=== PATIENT | male | born 1960 | race Caucasian/White ===

== ENCOUNTER → 2017-08-07 | Outpatient (CLI) | payer MEDICARE ==
--- NOTE | 2017-08-07 11:30 | RADIOLOGY REPORT (SQ) ---
EXAM DESCRIPTION: U/S ABDOMEN COMPLETE W/O DOP COMPLETED DATE/TIME: 08/07/2017 11:12 am REASON FOR STUDY: CIRRHOSIS OF LIVER WITH ASCITES (K70.31) K74.69 OTHER CIRRHOSIS OF LIVER K70.31 ALCOHOLIC CIRRHOSIS OF LIVER WITH ASCITES COMPARISON: 03/14/2015 TECHNIQUE: Dynamic and static grayscale images acquired of the abdomen and recorded on PACS. Additio nal selected color Doppler and spectral images recorded. LIMITATIONS: Study limited due to acoustical interference from fat or from air in the bowel. FINDINGS: PANCREAS: Obscured. LIVER: Sub capsular nodularity. Diffuse heterogeneous echotexture. LIVER VASCULATURE: Normal directional flow of the main portal vein and hepatic veins. GALLBLADDER: No stones. Wall thickening secondary to ascites. No pericholecystic fluid. ULTRASOUND-DETECTED GRAMAJO'S SIGN: Negative. INTRAHEPATIC DUCTS AND COMMON DUCT: CBD and intrahepatic ducts normal caliber. No filling defects. INFERIOR VENA CAVA: Normal flow. AORTA: No aneurysm. RIGHT KIDNEY: Normal size. Normal echogenicity. No solid or suspicious masses. No hydronephros is. No calcifications. LEFT KIDNEY: Normal size. Normal echogenicity. No solid or suspicious masses. Mild hydronephro sis. No calcifications. SPLEEN:13.0 cm. No solid masses. PERITONEAL AND PLEURAL SPACES: Moderate ascites. OTHER: No other significant finding. IMPRESSION: Cirrhosis. Moderate ascites. Mild left hydronephrosis without visualized urinary tract stones. TECHNICAL DOCUMENTATION: JOB ID: [id number] All Rights Reserved Reading location - IP/workstation name: [email or web address]
[2017-08-07 11:41] LABS: INTERNATIONAL RATION (INR) 1.93
[2017-08-07 11:43] LABS: ABSOLUTE BASOPHILS # (AUTO) 0.1 10^3/uL (0.0-0.2); ABSOLUTE LYMPHOCYTES (AUTO) 1.4 10^3/uL (0.5-4.7); ABSOLUTE MONOCYTES (AUTO) 0.6 10^3/uL (0.1-1.4); ABSOLUTE NEUT (AUTO) 3.6 10^3/uL (1.7-8.2); BASOPHILS % (AUTO) 1.2 % (0-2); EOSINOPHILS % (AUTO) 14.6 % (0-6); HEMATOCRIT 23.3 % (37.9-51.0); LYMPHOCYTES % (AUTO) 21.1 % (13-45); MEAN CORPUSCULAR HEMOGLOBIN 29.2 pg (27.0-33.4); MEAN CORPUSCULAR HGB CONC 32.8 g/dL (32.0-36.0); MEAN CORPUSCULAR VOLUME 89 fl (80-97); MONOCYTES % (AUTO) 8.8 % (3-13); PLATELET COUNT 100 10^3/uL (150-450); RED BLOOD COUNT 2.62 10^6/uL (4.35-5.55); RED CELL DISTRIBUTION WIDTH 19.5 % (11.5-14.0); SEGMENTED NEUTROPHILS % (AUTO) 54.3 % (42-78); TOTAL CELLS COUNTED % (AUTO) 100 %; WHITE BLOOD COUNT 6.5 10^3/uL (4.0-10.5)
[2017-08-07 11:53] LABS: HEMOGLOBIN 7.7 g/dL (13.5-17.0)
[2017-08-07 12:05] LABS: ALANINE AMINOTRANSFERASE 27 U/L (21-72); ALBUMIN 2.4 g/dL (3.5-5.0); ALKALINE PHOSPHATASE 158 U/L (38-126); ANION GAP 8 (5-19); ASPARTATE AMINO TRANSFERASE 70 U/L (17-59); BILIRUBIN,DIRECT 2.1 mg/dL (0.0-0.4); BILIRUBIN,TOTAL 3.5 mg/dL (0.2-1.3); BLOOD UREA NITROGEN 5 mg/dL (7-20); CALCIUM 7.8 mg/dL (8.4-10.2); CARBON DIOXIDE 25 mmol/L (22-30); CHLORIDE 103 mmol/L (98-107); GLUCOSE 91 mg/dL (75-110); POTASSIUM 3.7 mmol/L (3.6-5.0); SODIUM 135.7 mmol/L (137-145); TOTAL PROTEIN 7.1 g/dL (6.3-8.2)
[2017-08-09 15:39] LABS: HEPATITIS B CORE AB IGM Negative (Negative); HEPATITIS B CORE AB TOT Negative (Negative); HEPATITIS BE AB Negative (Negative); HEPATITIS BE ANTIGEN Negative (Negative); HEPATITIS C VIRUS AB <0.1 s/co ratio (0.0-0.9); HEPATITS B SURFACE ANTIGEN Negative (Negative)
[2017-08-11 09:01] LABS: HEPATITIS B SURFACE AB QUAL Non Reactive (.)
== END ==
LOC: RAD 10:05
PROVIDERS: ATTEND Internal Medicine Gastroenterology
DX: K70.31 Alcoholic cirrhosis of liver with ascites (principal)
CPT/HCPCS: 36415; 76700; 80053; 85025; 85610; 86704; 86705; 86706; 86707; 86803; 87340; 87350

== ENCOUNTER 2017-11-25 12:25 | Emergency (ER) | payer MEDICARE, MEDICAID ==
--- NOTE | 2017-11-25 13:00 | ER Document Report ---
ED Medical Screen (RME) - General Chief Complaint: Abnormal Lab Results Stated Complaint: LEG PAIN/ABNORMAL LABS Time Seen by Provider: 11/25/17 12:59 Notes: 57-year-old male history of cirrhosis requiring blood transfusions in the past sent over by primary care doctor for evaluation of a hemoglobin of less than 4. Daughter is with patient states that he has had frequent falls. Patient denies any significant pain at this time. Patient smokes. Denies alcohol use at this time. I have greeted and performed a rapid initial assessment of this patient. A comprehensive ED assessment and evaluation of the patient, analysis of test results and completion of the medical decision making process will be conducted by additional ED providers. TRAVEL OUTSIDE OF THE [place] IN LAST 30 DAYS: No - Related Data Allergies/Adverse Reactions: No Known Allergies Allergy (Verified 11/25/17 12:26) Past Medical History - Past Medical History Cardiac Medical History: Reports: Hx Congestive Heart Failure, Hx Hypercholesterolemia, Hx Hypertension GI Medical History: Reports: Hx Cirrhosis Psychiatric Medical History: Reports: Hx Depression - Immunizations Immunizations up to date: Yes Hx Diphtheria, Pertussis, Tetanus Vaccination: Yes Physical Exam - Vital signs Vitals: Temp Pulse Resp BP Pulse Ox 98.4 F 70 16 91/46 L 100 11/25/17 12:35 11/25/17 12:35 11/25/17 12:35 11/25/17 12:35 11/25/17 12:35 Course - Vital Signs Vital signs: Temp Pulse Resp BP Pulse Ox 98.4 F 70 16 91/46 L 100 11/25/17 12:35 11/25/17 12:35 11/25/17 12:35 11/25/17 12:35 11/25/17 12:35
[2017-11-25] MEDS ORDERED: NORMAL SALINE 250 ML IV PRN ×3 (13:07→23:59)
[2017-11-25 14:05] LABS: INTERNATIONAL RATION (INR) 1.66; PARTIAL THROMBOPLASTIN TIME 44.5 SEC (23.5-35.8); PROTHROMBIN TIME 20.4 SEC (11.4-15.4)
[2017-11-25 14:22] LABS: ALANINE AMINOTRANSFERASE 26 U/L (21-72); ALBUMIN 2.5 g/dL (3.5-5.0); ALKALINE PHOSPHATASE 119 U/L (38-126); ANION GAP 12 (5-19); ASPARTATE AMINO TRANSFERASE 52 U/L (17-59); BILIRUBIN,DIRECT 2.2 mg/dL (0.0-0.4); BILIRUBIN,TOTAL 3.9 mg/dL (0.2-1.3); BLOOD UREA NITROGEN 6 mg/dL (7-20); CALCIUM 7.6 mg/dL (8.4-10.2); CARBON DIOXIDE 23 mmol/L (22-30); CHLORIDE 98 mmol/L (98-107); GLUCOSE 99 mg/dL (75-110); SODIUM 132.6 mmol/L (137-145); TOTAL PROTEIN 7.3 g/dL (6.3-8.2)
[2017-11-25 14:28] LABS: POTASSIUM 2.9 mmol/L (3.6-5.0)
[2017-11-25 14:40] LABS: ABSOLUTE BASOPHILS # (AUTO) 0.1 10^3/uL (0.0-0.2); ABSOLUTE EOSINOPHILS # (AUTO) 0.3 10^3/uL (0.0-0.6); ABSOLUTE LYMPHOCYTES (AUTO) 0.8 10^3/uL (0.5-4.7); ABSOLUTE MONOCYTES (AUTO) 0.5 10^3/uL (0.1-1.4); ABSOLUTE NEUT (AUTO) 1.9 10^3/uL (1.7-8.2); EOSINOPHILS % (AUTO) 9.1 % (0-6); LYMPHOCYTES % (AUTO) 22.3 % (13-45); MEAN CORPUSCULAR HEMOGLOBIN 31.3 pg (27.0-33.4); MEAN CORPUSCULAR HGB CONC 33.5 g/dL (32.0-36.0); MEAN CORPUSCULAR VOLUME 94 fl (80-97); MONOCYTES % (AUTO) 13.3 % (3-13); RED CELL DISTRIBUTION WIDTH 19.7 % (11.5-14.0); SEGMENTED NEUTROPHILS % (AUTO) 53.3 % (42-78); TOTAL CELLS COUNTED % (AUTO) 100 %; WHITE BLOOD COUNT 3.6 10^3/uL (4.0-10.5)
[2017-11-25 15:13] LABS: PLATELET COUNT 96 10^3/uL (150-450)
[2017-11-25 15:16] LABS: HEMOGLOBIN 4.1 g/dL (13.5-17.0)
[2017-11-25 15:20] LABS: ANISOCYTOSIS 2+; OVALOCYTES SLIGHT; PLATELET COMMENT DECREASED; POIKILOCYTOSIS SLIGHT; POLYCHROMASIA SLIGHT; TEAR DROP CELLS SLIGHT
[2017-11-25 15:23] LABS: HEMATOCRIT 12.2 % (37.9-51.0)
[2017-11-25] MEDS ORDERED: NICOTINE 14 MG/24 HR PATCH.TD24 TD ONE (15:34)
[2017-11-25] MEDS ORDERED: FUROSEMIDE INJ/PF 40 MG/4 ML SDV IV ONE ×2 (15:34→20:00)
--- NOTE | 2017-11-25 15:34 | ER Document Report ---
ED General - General Chief Complaint: Abnormal Lab Results Stated Complaint: LEG PAIN/ABNORMAL LABS Time Seen by Provider: 11/25/17 12:59 TRAVEL OUTSIDE OF THE [place] IN LAST 30 DAYS: No - HPI Patient complains to provider of: Low H&H Notes: Patient here for evaluation of low hemoglobin hematocrit patient has a history of alcohol liver cirrhosis along with CHF. Patient states that on he went to his GI physician is Pat BRAXTON Dr. EK laboratory results performed was called with these results today stating need to get to the ER immediately because his hemoglobin is 3.6. Patient otherwise denies any other symptoms denies any fever chills nausea vomiting diarrhea dizziness weakness palpitations shortness of breath. Patient states he was having dark stools approximately 5 days prior to his visit here in ER however light brown stools for the last 4 days. Patient states he was having some significant bleeding in his mouth and swallowing blood was coming from a tooth this is since that time. Patient thinks that the dark stools from swelling and blood. Patient resting comfortably upon my evaluation. - Related Data Allergies/Adverse Reactions: Penicillins Allergy (Verified 11/25/17 20:14) Past Medical History - Social History Smoking Status: Current Every Day Smoker Family History: Arthritis, CAD, Hyperlipidemia, Hypertension, Malignancy Patient has suicidal ideation: No Patient has homicidal ideation: No - Past Medical History Cardiac Medical History: Reports: Hx Congestive Heart Failure, Hx Hypercholesterolemia, Hx Hypertension Renal/ Medical History: Denies: Hx Peritoneal Dialysis GI Medical History: Reports: Hx Cirrhosis Psychiatric Medical History: Reports: Hx Depression - Immunizations Immunizations up to date: Yes Hx Diphtheria, Pertussis, Tetanus Vaccination: Yes Review of Systems - Review of Systems Constitutional: Other - Low H&H EENT: No symptoms reported Cardiovascular: No symptoms reported Respiratory: No symptoms reported Gastrointestinal: No symptoms reported Genitourinary: No symptoms reported Male Genitourinary: No symptoms reported Musculoskeletal: No symptoms reported Skin: No symptoms reported Hematologic/Lymphatic: No symptoms reported Neurological/Psychological: No symptoms reported -: Yes All other systems reviewed and negative Physical Exam - Vital signs Vitals: Temp Pulse Resp BP Pulse Ox 98.4 F 70 16 91/46 L 100 11/25/17 12:35 11/25/17 12:35 11/25/17 12:35 11/25/17 12:35 11/25/17 12:35 Interpretation: Hypotensive - General General appearance: Appears well - The, Alert - HEENT Head: Normocephalic, Atraumatic Eyes: Normal Pupils: PERRL - Respiratory Respiratory status: No respiratory distress Chest status: Nontender Breath sounds: Normal Chest palpation: Normal - Cardiovascular Rhythm: Regular Heart sounds: Normal auscultation Murmur: No - Abdominal Inspection: Normal Distension: Distended - Ascites with positive fluid wave no tenderness umbilical hernia easily reducible Bowel sounds: Normal Tenderness: Nontender Organomegaly: No organomegaly - Rectal Stool: Heme negative - Light brown stool on examination - Back Back: Normal, Nontender - Extremities General upper extremity: Normal inspection, Nontender, Normal color, Normal ROM , Normal temperature General lower extremity: Normal inspection, Nontender, Edema - 2+ bilateral edema, Normal color, Normal ROM, Normal temperature, Normal weight bearing. No : Estefania's sign - Neurological Neuro grossly intact: Yes Cognition: Normal Orientation: AAOx4 Gabriela Coma Scale Eye Opening: Spontaneous Gabriela Coma Scale Verbal: Oriented [place] Coma Scale Motor: Obeys Commands Gabriela Coma Scale Total: 15 Speech: Normal Motor strength normal: LUE, RUE, LLE, RLE Sensory: Normal - Psychological Associated symptoms: Normal affect, Normal mood - Skin Skin Temperature: Warm Skin Moisture: Dry Skin Color: Normal Course - Re-evaluation Re-evalutation: 11/25/17 17:06 Patient laboratory studies shows a hemoglobin of 4.1 hematocrit of 12 along with a potassium of 2.9. Patient will be given potassium orally. We will start transfusing blood. Rectal examination showed light brown stool Hemoccult card was negative. Discussed for hospitalist for possible admission however due to lack of GI at our facility this time states he is uncomfortable in taking care of this patient due to the history of alcohol cirrhosis and possibility low hemoglobin due to underlying GI bleed. Patient's case was discussed with who accepts patient in transfer. Patient's blood pressure has been soft in the lower 90s lower 100s however he is asymptomatic at this time not tachycardic. 11/25/17 21:53 Discussed with the hospitalist she agrees at this time that patient cannot be admitted here to the hospital due to lack of GI specialty. Notified by the nursing staff that the patient's been dividing could be delayed 24-48 hours. The discussed with the patient about transfer to another facility however patient at this time refuses. Patient is a note 3. Patient states that he is only been to [place] and does not want to go to other hospital. We will continue to repeat laboratory studies. Patient has stated that if his blood counts increase he has not transferred within a reasonable time that he may sign out AGAINST MEDICAL ADVICE. I have advised patient the risks of making a decision. Patient states understanding. - Vital Signs Vital signs: Temp Pulse Resp BP Pulse Ox 98.1 F 64 15 85/42 L 100 11/25/17 22:35 11/25/17 22:35 11/25/17 22:35 11/25/17 22:35 11/25/17 22:35 - Laboratory Result Diagrams: 11/25/17 14:21 11/25/17 13:30 Laboratory results interpreted by me: 11/25/17 11/25/17 11/25/17 13:30 13:30 13:30 WBC RBC Hgb Hct RDW Plt Count Monocytes % Eosinophils % PT 20.4 H APTT 44.5 H Sodium 132.6 L Potassium 2.9 L* BUN 6 L Calcium 7.6 L Total Bilirubin 3.9 H Direct Bilirubin 2.2 H Ammonia 8.8 L Albumin 2.5 L Crossmatch 11/25/17 11/25/17 13:30 14:21 WBC 3.6 L RBC 1.30 L Hgb 4.1 L* Hct 12.2 L* RDW 19.7 H Plt Count 96 L Monocytes % 13.3 H Eosinophils % 9.1 H PT APTT Sodium Potassium BUN Calcium Total Bilirubin Direct Bilirubin Ammonia Albumin Crossmatch See Detail Critical Care Note - Critical Care Note Total time excluding time spent on procedures (mins): 35 Comments: Patient with a critical hemoglobin time also spent discussing with the patient about transferring him to a tertiary care facility and discussing the patient's presentation with history of care facility physician Discharge - Discharge Clinical Impression: Anemia requiring transfusions, Alcoholic cirrhosis, Thrombocytopenia, History of CHF (congestive heart failure), Possible GI bleed Condition: Good Disposition: [facility] Referrals: KELLY JOSE MD [Primary Care Provider] - Follow up as needed
[2017-11-25] MEDS ORDERED: PANTOPRAZOLE SODIUM 40 MG VIAL IV ONE ×2 (16:35→20:00)
[2017-11-25] MEDS ORDERED: POTASSIUM CHLORIDE 10 MEQ CAPSULE.ER PO ONE (17:01)
[2017-11-26] MEDS ORDERED: PHYTONADIONE INJ 10 MG/1 ML AMPULE IV ONE (01:26)
[2017-11-26] MEDS ORDERED: PHYTONADIONE 5 MG TABLET PO ONE (03:54)
[2017-11-26 04:23] LABS: ABSOLUTE BASOPHILS # (AUTO) 0.1 10^3/uL (0.0-0.2); ABSOLUTE EOSINOPHILS # (AUTO) 0.4 10^3/uL (0.0-0.6); ABSOLUTE LYMPHOCYTES (AUTO) 0.8 10^3/uL (0.5-4.7); ABSOLUTE MONOCYTES (AUTO) 0.3 10^3/uL (0.1-1.4); ABSOLUTE NEUT (AUTO) 2.6 10^3/uL (1.7-8.2); BASOPHILS % (AUTO) 1.5 % (0-2); EOSINOPHILS % (AUTO) 9.5 % (0-6); HEMATOCRIT 22.3 % (37.9-51.0); LYMPHOCYTES % (AUTO) 18.8 % (13-45); MEAN CORPUSCULAR HEMOGLOBIN 29.8 pg (27.0-33.4); MEAN CORPUSCULAR HGB CONC 34.2 g/dL (32.0-36.0); MONOCYTES % (AUTO) 8.3 % (3-13); RED BLOOD COUNT 2.56 10^6/uL (4.35-5.55); RED CELL DISTRIBUTION WIDTH 18.1 % (11.5-14.0); SEGMENTED NEUTROPHILS % (AUTO) 61.9 % (42-78); TOTAL CELLS COUNTED % (AUTO) 100 %; WHITE BLOOD COUNT 4.2 10^3/uL (4.0-10.5)
[2017-11-26 04:26] LABS: HEMOGLOBIN 7.6 g/dL (13.5-17.0); PLATELET COUNT 86 10^3/uL (150-450)
[2017-11-26 04:29] LABS: ANION GAP 9 (5-19); BLOOD UREA NITROGEN 6 mg/dL (7-20); CALCIUM 7.4 mg/dL (8.4-10.2); CARBON DIOXIDE 24 mmol/L (22-30); CHLORIDE 99 mmol/L (98-107); GLUCOSE 126 mg/dL (75-110); SODIUM 132.3 mmol/L (137-145)
[2017-11-26 04:45] LABS: POTASSIUM 2.8 mmol/L (3.6-5.0)
[2017-11-26 04:49] LABS: MEAN CORPUSCULAR VOLUME 87 fl (80-97)
[2017-11-26 05:32] VITALS: BP 86/43
[2017-11-26 13:01] LABS: PATH REVIEW PATHOLOGIST REVIEWED
== END 2017-11-26 05:30 | disposition left against medical advice (07) ==
LOC: ER 12:25
DX: D69.6 Thrombocytopenia, unspecified (principal); D64.9 Anemia, unspecified; K70.30 Alcoholic cirrhosis of liver without ascites; I50.9 Heart failure, unspecified; E78.00 Pure hypercholesterolemia, unspecified; Z88.0 Allergy status to penicillin
CPT/HCPCS: 99284; 96374; 96375; 86900; 86901; 36415; 36430; 86850; 82140; 83735; 85025; 85610; 85730; 82272; 80048; 80053; 86920; 83880; P9016; J1940; A9270 ×2; C9113; J3490; S0164

== ENCOUNTER 2018-02-28 10:21 | Emergency (ER) | payer MEDICARE, MEDICAID ==
[2018-02-28 10:56] LABS: VENOUS BLOOD BASE EXCESS -3.7 mmol/L; VENOUS BLOOD HCO3 21.4 mmol/L (20-32); VENOUS BLOOD PCO2 38.8 mmHg (35-63); VENOUS BLOOD PH 7.36 (7.30-7.42)
[2018-02-28 11:01] LABS: INTERNATIONAL RATION (INR) 2.25; PROTHROMBIN TIME 25.9 SEC (11.4-15.4)
[2018-02-28 11:09] LABS: MEAN CORPUSCULAR HEMOGLOBIN 27.8 pg (27.0-33.4); MEAN CORPUSCULAR HGB CONC 31.2 g/dL (32.0-36.0); MEAN CORPUSCULAR VOLUME 89 fl (80-97); RED BLOOD COUNT 1.63 10^6/uL (4.35-5.55); RED CELL DISTRIBUTION WIDTH 21.3 % (11.5-14.0); WHITE BLOOD COUNT 6.7 10^3/uL (4.0-10.5)
[2018-02-28 11:15] LABS: ALANINE AMINOTRANSFERASE 19 U/L (21-72); ALKALINE PHOSPHATASE 143 U/L (38-126); ANION GAP 12 (5-19); ASPARTATE AMINO TRANSFERASE 44 U/L (17-59); BILIRUBIN,DIRECT 1.6 mg/dL (0.0-0.4); BILIRUBIN,TOTAL 2.5 mg/dL (0.2-1.3); BLOOD UREA NITROGEN 6 mg/dL (7-20); CALCIUM 7.2 mg/dL (8.4-10.2); CARBON DIOXIDE 20 mmol/L (22-30); CHLORIDE 106 mmol/L (98-107); GLUCOSE 87 mg/dL (75-110); POTASSIUM 3.3 mmol/L (3.6-5.0); SODIUM 137.6 mmol/L (137-145); TOTAL PROTEIN 6.7 g/dL (6.3-8.2)
[2018-02-28 11:31] LABS: PLATELET COUNT 47 10^3/uL (150-450)
[2018-02-28 11:36] LABS: HEMOGLOBIN 4.5 g/dL (13.5-17.0)
[2018-02-28] MEDS ORDERED: NORMAL SALINE 250 ML IV PRN (11:47)
[2018-02-28 11:49] LABS: ABSOLUTE LYMPHOCYTES# (MANUAL) 0.5 10^3/uL (0.5-4.7); ABSOLUTE MONOCYTES # (MANUAL) 0.4 10^3/uL (0.1-1.4); ABSOLUTE NEUTROPHILS# (MANUAL) 4.2 10^3/uL (1.7-8.2); BAND NEUTROPHILS % (MANUAL) 1 % (3-5); BASOPHILS % (MANUAL) 1 % (0-2); EOSINOPHILS % (MANUAL) 23 % (0-6); LYMPHOCYTES % (MANUAL) 7 % (13-45); METAMYELOCYTES % (MANUAL) 1 % (0); MONOCYTES % (MANUAL) 6 % (3-13); SEGMENTED NEUTROPHILS % (MAN) 61 % (42-78); TOTAL CELLS COUNTED 100
[2018-02-28] MEDS ORDERED: POTASSIUM CHLORIDE 10 MEQ CAPSULE.ER PO ONE (11:49)
[2018-02-28] MEDS ORDERED: FUROSEMIDE INJ/PF 40 MG/4 ML SDV IV ONE (11:49)
[2018-02-28 11:50] LABS: ANISOCYTOSIS 2+; HYPOCHROMASIA 2+; POLYCHROMASIA SLIGHT
[2018-02-28 11:51] LABS: OVALOCYTES 1+; PLATELET COMMENT DECREASED; POIKILOCYTOSIS 1+; TOXIC GRANULATION SLIGHT
--- NOTE | 2018-02-28 12:00 | ER Document Report ---
ED General - General Chief Complaint: Edema Stated Complaint: ABDOMINAL/LEG SWELLING Time Seen by Provider: 02/28/18 11:13 Notes: Patient is a 58-year-old male that presents to the emergency department for chief complaint of abdominal distention, and lightheadedness. Patient states over the last several days he has had even more worsening of the patient's baseline ascites, he denies having any associated abdominal pain with it. Denies any fevers, chills, night sweats. Denies having any nausea or vomiting. He is felt more weak and lightheaded over the past few days as well, he has a history of severe anemia. According to the patient's daughter he was at the emergency department in October, and was given blood transfusions, total of 3 units, waiting for transfer, that he left AMA prior to being transferred to a tertiary facility. He states he feels similar to that time, although he notes that his abdomen seems more distended than previously, he also notes that his scrotum has become edematous as well and his legs been more swollen. He denies any worsening of the swelling in one leg over the other, denies any pain in his legs at this time. He has a chronic alcoholic and continues to drink even through yesterday. He denies any black or melanotic stools, denies any vomiting or hematemesis Past Medical History: Cirrhosis, CHF, chronic kidney disease, anemia Past Surgical History: No recent or pertinent surgeries Social History: Admits to smoking cigarettes, and daily alcohol use, denies illicit drug use. Family History: Reviewed and noncontributory for presenting illness Allergies: Reviewed, see documented allergy list. REVIEW OF SYSTEMS: Other than noted above, the 12 point review of systems was reviewed with the patient and were negative, all pertinent findings are included in the HPI. PHYSICAL EXAMINATION: Vital signs reviewed, nursing noted reviewed. GENERAL: Chronically ill-appearing male, pale to appearance, but in no acute distress HEAD: Atraumatic, normocephalic. EYES: Eyes appear normal, extraocular movements intact, sclera anicteric, conjunctiva are normal. ENT: nares patent, oropharynx clear without exudates. Moist mucous membranes. NECK: Normal range of motion, supple without lymphadenopathy LUNGS: Breath sounds clear to auscultation bilaterally and equal. No wheezes rales or rhonchi. HEART: Regular rate and rhythm without murmurs ABDOMEN: Soft, markedly distended abdomen, with fluid wave, nontender to palpate however, umbilical hernia appreciated, but reducible, no cyanosis or tenderness appreciated at the umbilicus. No rebound, guarding or rigidity. Male genital: Patient has markedly edematous scrotum, and overall anasarca EXTREMITIES: Bilateral lower extremity edema, to the proximal thighs, 3+ pitting , equal bilaterally, stasis dermatitis noted bilaterally in the lower extremities. NEUROLOGICAL: No focal neurological deficits. Moves all extremities spontaneously Motor and sensory grossly intact on exam. PSYCH: Normal mood, normal affect. SKIN: Warm, Dry, normal turgor, pallor noted TRAVEL OUTSIDE OF THE [place] IN LAST 30 DAYS: No - Related Data Allergies/Adverse Reactions: Penicillins Allergy (Verified 02/28/18 10:37) Past Medical History - Social History Smoking Status: Current Every Day Smoker Chew tobacco use (# tins/day): No Frequency of alcohol use: Heavy Drug Abuse: None Family History: Arthritis, CAD, Hyperlipidemia, Hypertension, Malignancy Patient has suicidal ideation: No Patient has homicidal ideation: No - Past Medical History Cardiac Medical History: Reports: Hx Congestive Heart Failure, Hx Hypercholesterolemia, Hx Hypertension Renal/ Medical History: Denies: Hx Peritoneal Dialysis GI Medical History: Reports: Hx Cirrhosis Psychiatric Medical History: Reports: Hx Depression - Immunizations Immunizations up to date: Yes Hx Diphtheria, Pertussis, Tetanus Vaccination: Yes Physical Exam - Vital signs Vitals: Temp 98 F 02/28/18 10:36 Course - Re-evaluation Re-evalutation: Patient seen and examined vital signs reviewed. Laboratory data and imaging were ordered as appropriate for the patient's presenting symptoms and complaint, with consideration of any critical or life threatening conditions that may be associated with their obtained history and exam as noted above. Patient was treated with 3 unit packed red blood cell blood transfusion was ordered given the patient's hemoglobin came back at 4.5. Results were reviewed when available and demonstrated severe anemia, at 4.5 hemoglobin, again patient was ordered 3 units transfusion, his platelet count was 47, which is lower than previous, his INR is 2.2, no renal impairment however, patient does have massive ascites, however the risks of obtaining ascitic fluid, or performing large volume paracentesis, vastly outweigh the benefits in this patient, given his lack of ability to coagulate, which Could cause bleeding, patient does not have abdominal tenderness, and no leukocytosis , therefore I do not think the patient has spontaneous bacterial peritonitis. He does have an elevated lactic acid, at 5.0, but I believe this is manifestation of severe anemia, resulting in global or oxygen exchange, and lack of ability to convert lactate to bicarb, in a patient with cirrhosis. No evidence of infection otherwise, and I believe his lactate will improve with blood transfusion. Patient was also given Lasix 40 mg IV, for his anasarca. The patient was re-evaluated and was stable, blood pressure is remaining stable , in the low 100s, to high 90s, will continue to monitor Evaluation was most consistent with severe anemia, massive ascites, thrombocytopenia, cirrhosis, and elevated lactic acid Results were discussed with the patient at this point after careful consideration I feel that that patient should be transferred to [facility] due to the above diagnoses, requiring gastroenterology to follow. Dr. Galvan is the accepting physician. This was discussed with the patient that it is in the best interest for their care to be transferred, the risks and benefits of transfer were discussed, including but not limited to clinical deterioration during transport, respiratory distress, and potential for traumatic injuries. Patient agreed with this plan of care. *Note is created using voice recognition software and may contain spelling, syntax or grammatical errors. Laboratory 02/28/18 02/28/18 02/28/18 10:35 10:35 10:35 WBC 6.7 RBC 1.63 L Hgb 4.5 L* Hct 14.5 L* MCV 89 MCH 27.8 MCHC 31.2 L RDW 21.3 H Plt Count 47 L Total Counted 100 Seg Neutrophils % Not Reportable Seg Neuts % (Manual) 61 Band Neutrophils % 1 L Lymphocytes % Not Reportable Lymphocytes % (Manual) 7 L Monocytes % Not Reportable Monocytes % (Manual) 6 Eosinophils % Not Reportable Eosinophils % (Manual) 23 H Basophils % Not Reportable Basophils % (Manual) 1 Metamyelocytes % 1 H Absolute Neutrophils Not Reportable Abs Neuts (Manual) 4.2 Absolute Lymphocytes Not Reportable Abs Lymphs (Manual) 0.5 Absolute Monocytes Not Reportable Abs Monocytes (Manual) 0.4 Absolute Eosinophils Not Reportable Absolute Eos (Manual) 1.5 H Absolute Basophils Not Reportable Abs Basophils (Manual) 0.1 Toxic Granulation SLIGHT Platelet Comment DECREASED Polychromasia SLIGHT Hypochromasia 2+ Poikilocytosis 1+ Anisocytosis 2+ Ovalocytes 1+ PT 25.9 H INR 2.25 VBG pH VBG pCO2 VBG HCO3 VBG Base Excess Sodium 137.6 Potassium 3.3 L Chloride 106 Carbon Dioxide 20 L Anion Gap 12 BUN 6 L Creatinine 0.86 Est GFR ( Amer) > 60 Est GFR (Non-Af Amer) > 60 Glucose 87 POC Glucose Lactic Acid Calcium 7.2 L Total Bilirubin 2.5 H Direct Bilirubin 1.6 H Neonat Total Bilirubin Not Reportable Neonat Direct Bilirubin Not Reportable Neonat Indirect Bili Not Reportable AST 44 ALT 19 L Alkaline Phosphatase 143 H Ammonia Total Protein 6.7 Albumin 2.0 L Blood Type Antibody Screen Crossmatch 02/28/18 02/28/18 02/28/18 10:35 10:35 10:35 WBC RBC Hgb Hct MCV MCH MCHC RDW Plt Count Total Counted Seg Neutrophils % Seg Neuts % (Manual) Band Neutrophils % Lymphocytes % Lymphocytes % (Manual) Monocytes % Monocytes % (Manual) Eosinophils % Eosinophils % (Manual) Basophils % Basophils % (Manual) Metamyelocytes % Absolute Neutrophils Abs Neuts (Manual) Absolute Lymphocytes Abs Lymphs (Manual) Absolute Monocytes Abs Monocytes (Manual) Absolute Eosinophils Absolute Eos (Manual) Absolute Basophils Abs Basophils (Manual) Toxic Granulation Platelet Comment Polychromasia Hypochromasia Poikilocytosis Anisocytosis Ovalocytes PT INR VBG pH 7.36 VBG pCO2 38.8 VBG HCO3 21.4 VBG Base Excess -3.7 Sodium Potassium Chloride Carbon Dioxide Anion Gap BUN Creatinine Est GFR ( Amer) Est GFR (Non-Af Amer) Glucose POC Glucose Lactic Acid 5.0 H Calcium Total Bilirubin Direct Bilirubin Neonat Total Bilirubin Neonat Direct Bilirubin Neonat Indirect Bili AST ALT Alkaline Phosphatase Ammonia 40.3 H Total Protein Albumin Blood Type Antibody Screen Crossmatch 02/28/18 02/28/18 10:53 10:55 WBC RBC Hgb Hct MCV MCH MCHC RDW Plt Count Total Counted Seg Neutrophils % Seg Neuts % (Manual) Band Neutrophils % Lymphocytes % Lymphocytes % (Manual) Monocytes % Monocytes % (Manual) Eosinophils % Eosinophils % (Manual) Basophils % Basophils % (Manual) Metamyelocytes % Absolute Neutrophils Abs Neuts (Manual) Absolute Lymphocytes Abs Lymphs (Manual) Absolute Monocytes Abs Monocytes (Manual) Absolute Eosinophils Absolute Eos (Manual) Absolute Basophils Abs Basophils (Manual) Toxic Granulation Platelet Comment Polychromasia Hypochromasia Poikilocytosis Anisocytosis Ovalocytes PT INR VBG pH VBG pCO2 VBG HCO3 VBG Base Excess Sodium Potassium Chloride Carbon Dioxide Anion Gap BUN Creatinine Est GFR ( Amer) Est GFR (Non-Af Amer) Glucose POC Glucose 88 Lactic Acid Calcium Total Bilirubin Direct Bilirubin Neonat Total Bilirubin Neonat Direct Bilirubin Neonat Indirect Bili AST ALT Alkaline Phosphatase Ammonia Total Protein Albumin Blood Type A NEGATIVE Antibody Screen NEGATIVE Crossmatch See Detail - Vital Signs Vital signs: Temp Pulse Resp BP Pulse Ox 97.8 F 71 13 97/40 L 100 02/28/18 14:20 02/28/18 14:31 02/28/18 14:31 02/28/18 14:30 02/28/18 14:31 - Laboratory Result Diagrams: 02/28/18 10:35 02/28/18 10:35 Laboratory results interpreted by me: 02/28/18 02/28/18 02/28/18 10:35 10:35 10:35 RBC 1.63 L Hgb 4.5 L* Hct 14.5 L* MCHC 31.2 L RDW 21.3 H Plt Count 47 L Band Neutrophils % 1 L Lymphocytes % (Manual) 7 L Eosinophils % (Manual) 23 H Metamyelocytes % 1 H Absolute Eos (Manual) 1.5 H PT 25.9 H Potassium 3.3 L Carbon Dioxide 20 L BUN 6 L Lactic Acid Calcium 7.2 L Total Bilirubin 2.5 H Direct Bilirubin 1.6 H ALT 19 L Alkaline Phosphatase 143 H Ammonia Albumin 2.0 L Crossmatch 02/28/18 02/28/18 02/28/18 10:35 10:35 10:55 RBC Hgb Hct MCHC RDW Plt Count Band Neutrophils % Lymphocytes % (Manual) Eosinophils % (Manual) Metamyelocytes % Absolute Eos (Manual) PT Potassium Carbon Dioxide BUN Lactic Acid 5.0 H Calcium Total Bilirubin Direct Bilirubin ALT Alkaline Phosphatase Ammonia 40.3 H Albumin Crossmatch See Detail - EKG Interpretation by Me Additional EKG results interpreted by me: EKG demonstrates normal sinus rhythm ventricular rate of 75 bpm, normal axis, QTC 510 ms, no evidence of acute ischemia on this EKG. Critical Care Note - Critical Care Note Total time excluding time spent on procedures (mins): 76 Comments: Critical care time 76 minutes exclusive from separate billable procedures for a patient requiring complex medical decision making, and high potential for clinical deterioration. In a patient with massive ascites, severe anemia requiring significant blood transfusion, discussion with consultants for transfer, evaluation and monitoring closely, due to borderline hypotension. Time spent obtaining history from patient or surrogate, discussions with consultants, development of treatment plan with patient or surrogate, evaluation of patient's response to treatment, examination of patient, ordering and performing treatments and interventions, ordering and review of laboratory studies, re-evaluation of patient's condition, ordering and review of radiographic studies and review of old charts Discharge - Discharge Clinical Impression: Severe anemia, Thrombocytopenia, Elevated INR, Anasarca Ascites Qualifiers: Ascites type: other type Qualified Code(s): R18.8 - Other ascites Cirrhosis Qualifiers: Hepatic cirrhosis type: unspecified hepatic cirrhosis Ascites presence: with ascites Qualified Code(s): K74.60 - Unspecified cirrhosis of liver; R18.8 - Other ascites; R18.8 - Other ascites Condition: Stable Disposition: [facility] Referrals: KELLY JOSE MD [Primary Care Provider] - Follow up as needed
[2018-02-28 12:01] LABS: HEMATOCRIT 14.5 % (37.9-51.0)
[2018-02-28] MEDS ORDERED: PHYTONADIONE 5 MG TABLET PO ONE (12:42)
--- NOTE | 2018-02-28 13:21 | EKG REPORT ---
SEVERITY:- ABNORMAL ECG - SINUS RHYTHM LOW VOLTAGE THROUGHOUT PROLONGED QT INTERVAL : Confirmed by: Candido Bender MD 28-Feb-2018 13:19:46
[2018-02-28] MEDS ORDERED: NICOTINE 21 MG/24 HR PATCH.TD24 TD ONE (19:12)
[2018-02-28 19:20] LABS: APPEARANCE,URINE CLEAR; BILIRUBIN,URINE NEGATIVE (NEGATIVE); COLOR,URINE STRAW; GLUCOSE, URINE NEGATIVE (NEGATIVE); KETONES,URINE NEGATIVE (NEGATIVE); LEUKOCYTE ESTERASE,URINE NEGATIVE (NEGATIVE); NITRITE,URINE NEGATIVE (NEGATIVE); PROTEIN,URINE NEGATIVE (NEGATIVE); URINE SPECIFIC GRAVITY 1.005; UROBILINOGEN,URINE NEGATIVE mg/dL (<2.0)
[2018-03-01 01:08] LABS: HEMATOCRIT 22.6 % (37.9-51.0); MEAN CORPUSCULAR HEMOGLOBIN 29.2 pg (27.0-33.4); MEAN CORPUSCULAR HGB CONC 33.7 g/dL (32.0-36.0); MEAN CORPUSCULAR VOLUME 87 fl (80-97); RED BLOOD COUNT 2.61 10^6/uL (4.35-5.55); RED CELL DISTRIBUTION WIDTH 17.2 % (11.5-14.0); WHITE BLOOD COUNT 6.1 10^3/uL (4.0-10.5)
[2018-03-01 01:11] LABS: PLATELET COUNT 38 10^3/uL (150-450)
[2018-03-01 01:20] LABS: HEMOGLOBIN 7.6 g/dL (13.5-17.0)
[2018-03-01 01:34] LABS: ABSOLUTE LYMPHOCYTES# (MANUAL) 0.9 10^3/uL (0.5-4.7); ABSOLUTE MONOCYTES # (MANUAL) 0.4 10^3/uL (0.1-1.4); ABSOLUTE NEUTROPHILS# (MANUAL) 4.8 10^3/uL (1.7-8.2); BASOPHILS % (MANUAL) 0 % (0-2); EOSINOPHILS % (MANUAL) 0 % (0-6); LYMPHOCYTES % (MANUAL) 14 % (13-45); MONOCYTES % (MANUAL) 7 % (3-13); SEGMENTED NEUTROPHILS % (MAN) 79 % (42-78); TOTAL CELLS COUNTED 100
[2018-03-01 01:37] LABS: ANISOCYTOSIS 1+; PLATELET COMMENT DECREASED; POLYCHROMASIA 1+
[2018-03-01 08:32] LABS: ABSOLUTE BASOPHILS # (AUTO) 0.1 10^3/uL (0.0-0.2); ABSOLUTE EOSINOPHILS # (AUTO) 1.3 10^3/uL (0.0-0.6); ABSOLUTE LYMPHOCYTES (AUTO) 0.9 10^3/uL (0.5-4.7); ABSOLUTE MONOCYTES (AUTO) 0.5 10^3/uL (0.1-1.4); ABSOLUTE NEUT (AUTO) 3.4 10^3/uL (1.7-8.2); BASOPHILS % (AUTO) 1.2 % (0-2); EOSINOPHILS % (AUTO) 20.8 % (0-6); HEMATOCRIT 24.4 % (37.9-51.0); HEMOGLOBIN 8.2 g/dL (13.5-17.0); LYMPHOCYTES % (AUTO) 15.2 % (13-45); MEAN CORPUSCULAR HEMOGLOBIN 29.3 pg (27.0-33.4); MEAN CORPUSCULAR HGB CONC 33.7 g/dL (32.0-36.0); MEAN CORPUSCULAR VOLUME 87 fl (80-97); MONOCYTES % (AUTO) 7.5 % (3-13); RED BLOOD COUNT 2.81 10^6/uL (4.35-5.55); RED CELL DISTRIBUTION WIDTH 17.1 % (11.5-14.0); SEGMENTED NEUTROPHILS % (AUTO) 55.3 % (42-78); TOTAL CELLS COUNTED % (AUTO) 100 %; WHITE BLOOD COUNT 6.2 10^3/uL (4.0-10.5)
[2018-03-01 08:37] LABS: ALANINE AMINOTRANSFERASE 12 U/L (21-72); ALKALINE PHOSPHATASE 105 U/L (38-126); ANION GAP 8 (5-19); ASPARTATE AMINO TRANSFERASE 41 U/L (17-59); BILIRUBIN,DIRECT 2.6 mg/dL (0.0-0.4); BLOOD UREA NITROGEN 6 mg/dL (7-20); CALCIUM 7.3 mg/dL (8.4-10.2); CARBON DIOXIDE 26 mmol/L (22-30); CHLORIDE 105 mmol/L (98-107); GLUCOSE 95 mg/dL (75-110); SODIUM 138.9 mmol/L (137-145); TOTAL PROTEIN 6.5 g/dL (6.3-8.2)
[2018-03-01 08:53] LABS: PLATELET COUNT 42 10^3/uL (150-450)
[2018-03-01 08:56] LABS: BILIRUBIN,TOTAL 5.7 mg/dL (0.2-1.3)
[2018-03-01] MEDS: POTASSI CL 20 MEQ/50 ML RIDER 20 MEQ/50 ML RTUPB IV SCH ×2 (09:57→11:52)
[2018-03-01] MEDS ORDERED: IPRATROPIUM/ALBUTEROL 0.5-2.5 MG/3 ML AMPUL NEB ONE (10:09)
[2018-03-01 12:12] LABS: ABSOLUTE EOSINOPHILS # (AUTO) 1.4 10^3/uL (0.0-0.6); ABSOLUTE LYMPHOCYTES (AUTO) 0.8 10^3/uL (0.5-4.7); ABSOLUTE MONOCYTES (AUTO) 0.6 10^3/uL (0.1-1.4); ABSOLUTE NEUT (AUTO) 3.3 10^3/uL (1.7-8.2); BASOPHILS % (AUTO) 0.7 % (0-2); EOSINOPHILS % (AUTO) 23.1 % (0-6); HEMATOCRIT 22.5 % (37.9-51.0); LYMPHOCYTES % (AUTO) 12.5 % (13-45); MEAN CORPUSCULAR HEMOGLOBIN 28.9 pg (27.0-33.4); MEAN CORPUSCULAR HGB CONC 33.2 g/dL (32.0-36.0); MEAN CORPUSCULAR VOLUME 87 fl (80-97); MONOCYTES % (AUTO) 9.2 % (3-13); RED BLOOD COUNT 2.59 10^6/uL (4.35-5.55); RED CELL DISTRIBUTION WIDTH 17.6 % (11.5-14.0); SEGMENTED NEUTROPHILS % (AUTO) 54.5 % (42-78); TOTAL CELLS COUNTED % (AUTO) 100 %; WHITE BLOOD COUNT 6.1 10^3/uL (4.0-10.5)
[2018-03-01 12:16] LABS: PLATELET COUNT 40 10^3/uL (150-450)
[2018-03-01 12:17] LABS: HEMOGLOBIN 7.5 g/dL (13.5-17.0)
[2018-03-01] MEDS ORDERED: NORMAL SALINE 250 ML IV PRN (12:19)
--- NOTE | 2018-03-01 13:39 | ER Document Report ---
Doctor's Note Notes: 03/01/18 13:38 Patient's hemoglobin was 8.2 after transfusion with 3 units of blood. Repeating 4 hours later, his hemoglobin is 7.5. I have typing for another couple of units. Rectal exam done. Brown stool. Dipesh Chavez MD 03/01/18 19:49 Transport is here to take patient to [facility]. Personally evaluated patient. All vital signs are all normal. Patient has no complaints at this time. He said he only wishes in hopes that the band that he will be traveling in his warmer than his room here. Dipesh Chavez MD
[2018-03-01 15:50] LABS: MEAN CORPUSCULAR HEMOGLOBIN 29.1 pg (27.0-33.4); MEAN CORPUSCULAR HGB CONC 33.4 g/dL (32.0-36.0); MEAN CORPUSCULAR VOLUME 87 fl (80-97); RED BLOOD COUNT 2.64 10^6/uL (4.35-5.55); RED CELL DISTRIBUTION WIDTH 17.6 % (11.5-14.0); WHITE BLOOD COUNT 6.6 10^3/uL (4.0-10.5)
[2018-03-01] MEDS ORDERED: FUROSEMIDE INJ/PF 40 MG/4 ML SDV IV ONE (15:56)
[2018-03-01 16:00] LABS: HEMOGLOBIN 7.7 g/dL (13.5-17.0)
[2018-03-01 16:01] LABS: PLATELET COUNT 38 10^3/uL (150-450)
[2018-03-01 19:09] VITALS: BP 112/75
[2018-03-03 11:43] LABS: PATH REVIEW PATHOLOGIST REVIEWED
== END 2018-03-01 19:42 | disposition short-term general hospital (02) ==
LOC: ER 10:21
DX: D64.9 Anemia, unspecified (principal); D69.6 Thrombocytopenia, unspecified; R60.1 Generalized edema; K74.60 Unspecified cirrhosis of liver; R14.0 Abdominal distension (gaseous); F17.210 Nicotine dependence, cigarettes, uncomplicated; Z88.0 Allergy status to penicillin
CPT/HCPCS: 93005; 96376; 94640 ×2; 99291; 99292; 96375; 96365; 96366; 86900; 86901; 36415; 87040; 87086; 36430; 86850; 82962; 82140; 85025; 85027; 85610; 82272; 87077; 80053; 81001; 87186; 86920; 82803; 83605; 93010; P9016; J1940 ×2; A9270 ×3; J3480; J3490; J7620

== ENCOUNTER 2018-04-02 12:11 | Emergency (ER) | payer MEDICARE, MEDICAID ==
--- NOTE | 2018-04-02 13:07 | ER Document Report ---
ED Medical Screen (RME) - General Chief Complaint: Abdominal Swelling Stated Complaint: BODY SWELLING, PAIN Time Seen by Provider: 04/02/18 12:42 Mode of Arrival: Wheelchair Information source: Patient, Relative, [facility] Records Notes: 58-year-old male with congestive heart failure, hyperlipidemia, hypertension, cirrhosis, renal disease, alcoholism presents with his daughter with increasing abdominal and lower extremity swelling and shortness of breath. Patient had a recent admission at the beginning of March. His last alcohol intake was last night. I have greeted and performed a rapid initial assessment of this patient. A comprehensive ED assessment and evaluation of the patient, analysis of test results and completion of medical decision making process we will be contacted by additional ED providers. PHYSICAL EXAMINATION: Vital signs reviewed GENERAL: Unkempt, disheveled LUNGS: Diminished breath sounds, tachypneic Musculoskeletal: Normal range of motion NEUROLOGICAL: Normal speech, normal gait. PSYCH: Normal mood, normal affect. SKIN: Skin texture changes lower extremity TRAVEL OUTSIDE OF THE [place] IN LAST 30 DAYS: No - HPI Onset: Other Onset/Duration: Persistent Quality of pain: Fullness Severity: Mild Associated Symptoms: Chills, Cough (nonproductive), Diarrhea, Leg swelling, Shortness of breath. denies: Chest pain Exacerbated by: Denies Relieved by: Denies Similar symptoms previously: Yes Recently seen / treated by doctor: Yes - Related Data Smoking: Cigarettes Frequency of alcohol use: Heavy Drug Abuse: None Allergies/Adverse Reactions: peanut Allergy (Verified 04/02/18 12:12) Penicillins Allergy (Verified 04/02/18 12:12) Sulfa (Sulfonamide Antibiotics) Allergy (Verified 04/02/18 12:12) Past Medical History - Past Medical History Cardiac Medical History: Reports: Hx Congestive Heart Failure, Hx Hypercholesterolemia, Hx Hypertension Renal/ Medical History: Denies: Hx Peritoneal Dialysis GI Medical History: Reports: Hx Cirrhosis Psychiatric Medical History: Reports: Hx Depression - Immunizations Immunizations up to date: Yes Hx Diphtheria, Pertussis, Tetanus Vaccination: Yes Physical Exam - Vital signs Vitals: Temp Pulse Resp BP Pulse Ox 97.9 F 71 24 H 129/61 H 99 04/02/18 12:14 04/02/18 12:14 04/02/18 12:14 04/02/18 12:14 04/02/18 12:14 Course - Vital Signs Vital signs: Temp Pulse Resp BP Pulse Ox 97.9 F 71 24 H 129/61 H 99 04/02/18 12:14 04/02/18 12:14 04/02/18 12:14 04/02/18 12:14 04/02/18 12:14 Doctor's Discharge - Discharge Referrals: KELLY JOSE MD [Primary Care Provider] - Follow up as needed
[2018-04-02 14:30] LABS: INTERNATIONAL RATION (INR) 1.58
[2018-04-02 14:31] LABS: PARTIAL THROMBOPLASTIN TIME 51.7 SEC (23.5-35.8)
[2018-04-02 14:34] LABS: PROTHROMBIN TIME 19.6 SEC (11.4-15.4)
[2018-04-02 14:42] LABS: HEMATOCRIT 27.4 % (37.9-51.0); HEMOGLOBIN 9.3 g/dL (13.5-17.0); MEAN CORPUSCULAR HEMOGLOBIN 32.9 pg (27.0-33.4); MEAN CORPUSCULAR VOLUME 97 fl (80-97); RED BLOOD COUNT 2.83 10^6/uL (4.35-5.55); WHITE BLOOD COUNT 7.4 10^3/uL (4.0-10.5)
[2018-04-02 14:56] LABS: ALANINE AMINOTRANSFERASE 27 U/L (21-72); ALBUMIN 2.3 g/dL (3.5-5.0); ALCOHOL 51 mg/dL (NONE DETECTED); ALKALINE PHOSPHATASE 155 U/L (38-126); ASPARTATE AMINO TRANSFERASE 70 U/L (17-59); BILIRUBIN,DIRECT 1.8 mg/dL (0.0-0.4); BILIRUBIN,TOTAL 3.8 mg/dL (0.2-1.3); BLOOD UREA NITROGEN 7 mg/dL (7-20); CALCIUM 7.6 mg/dL (8.4-10.2); GLUCOSE 86 mg/dL (75-110); POTASSIUM 3.5 mmol/L (3.6-5.0)
[2018-04-02 15:00] LABS: CARBON DIOXIDE 28 mmol/L (22-30); CHLORIDE 103 mmol/L (98-107); SODIUM 134.7 mmol/L (137-145)
[2018-04-02 15:03] LABS: ANION GAP 4 (5-19)
[2018-04-02 15:06] LABS: NT PRO BNP 417 pg/mL (5-900)
[2018-04-02 15:10] LABS: TROPONIN I < 0.012 ng/mL
[2018-04-02 15:19] LABS: PLATELET COUNT 83 10^3/uL (150-450)
[2018-04-02 15:22] LABS: ABSOLUTE LYMPHOCYTES# (MANUAL) 0.9 10^3/uL (0.5-4.7); ABSOLUTE NEUTROPHILS# (MANUAL) 3.6 10^3/uL (1.7-8.2); BASOPHILS % (MANUAL) 1 % (0-2); LYMPHOCYTES % (MANUAL) 12 % (13-45); MONOCYTES % (MANUAL) 13 % (3-13); SEGMENTED NEUTROPHILS % (MAN) 49 % (42-78); TOTAL CELLS COUNTED 100
[2018-04-02 15:23] LABS: EOSINOPHILS % (MANUAL) 25 % (0-6)
[2018-04-02 15:24] LABS: TOXIC GRANULATION SLIGHT
[2018-04-02 15:25] LABS: ANISOCYTOSIS 3+; HYPOCHROMASIA 1+; PLATELET COMMENT DECREASED; POLYCHROMASIA 1+
--- NOTE | 2018-04-02 15:38 | RADIOLOGY REPORT (SQ) ---
EXAM DESCRIPTION: CHEST 2 VIEWS COMPLETED DATE/TIME: 04/02/2018 3:31 pm REASON FOR STUDY: Short of breath, history of heart failure COMPARISON: 07/08/2014 EXAM PARAMETERS: NUMBER OF VIEWS: two views TECHNIQUE: Digital Frontal and Lateral radiographic views of the chest acquired. RADIATION DOSE: NA LIMITATIONS: none FINDINGS: LUNGS AND PLEURA: There is bibasilar linear atelectasis or scarring. No consolidations or effusion. No pneumothorax. MEDIASTINUM AND HILAR STRUCTURES: No masses or contour abnormalities. HEART AND VASCULAR STRUCTURES: Heart normal size. No evidence for failure. BONES: No acute findings. HARDWARE: None in the chest. OTHER: No other significant finding. IMPRESSION: Bibasilar atelectasis or scarring. No other significant findings. TECHNICAL DOCUMENTATION: JOB ID: [id number] [employer]- All Rights Reserved Reading location - IP/workstation name: [email or web address]
--- NOTE | 2018-04-02 15:38 | ER Document Report ---
ED GI/ - General Chief Complaint: Abdominal Swelling Stated Complaint: BODY SWELLING, PAIN Time Seen by Provider: 04/02/18 12:42 Mode of Arrival: Wheelchair Information source: Patient TRAVEL OUTSIDE OF THE [place] IN LAST 30 DAYS: No - HPI Patient complains to provider of: Other - Abdominal distention, weight gain, difficulty breathing Onset: Last week Timing/Duration: Persistent, Worse Quality of pain: No pain Associated symptoms: Shortness of breath Similar symptoms previously: Yes Recently seen / treated by doctor: No Notes: 04/02/18 15:56 Patient is a 58-year-old male with a history of liver disease with cirrhosis secondary to alcoholism, CHF, hyperlipidemia and hypertension, patient presents to the emergency room today complaining of abdominal distention secondary to ascites, has a history of this previously and was seen at this facility and subsequently transferred to [facility] for paracentesis as it was not available at this facility at the time, patient reports that his primary care provider recently left the practice for a 10 and therefore he has not been seen in the interim, has not there, denies any fevers, no nausea, vomiting or diarrhea any abdominal pain - Related Data Allergies/Adverse Reactions: peanut Allergy (Verified 04/02/18 12:12) Penicillins Allergy (Verified 04/02/18 12:12) Sulfa (Sulfonamide Antibiotics) Allergy (Verified 04/02/18 12:12) Past Medical History - General Information source: Patient, Relative, [facility] - Social History Smoking Status: Current Every Day Smoker Chew tobacco use (# tins/day): No Frequency of alcohol use: Heavy Drug Abuse: None Family History: Arthritis, CAD, Hyperlipidemia, Hypertension, Malignancy Patient has suicidal ideation: No Patient has homicidal ideation: No - Past Medical History Cardiac Medical History: Reports: Hx Congestive Heart Failure, Hx Hypercholesterolemia, Hx Hypertension Renal/ Medical History: Denies: Hx Peritoneal Dialysis GI Medical History: Reports: Hx Cirrhosis Psychiatric Medical History: Reports: Hx Depression - Immunizations Immunizations up to date: Yes Hx Diphtheria, Pertussis, Tetanus Vaccination: Yes Review of Systems - Review of Systems Constitutional: No symptoms reported EENT: No symptoms reported Cardiovascular: Edema Respiratory: Short of breath Gastrointestinal: Abdomen distended Genitourinary: No symptoms reported Male Genitourinary: No symptoms reported Musculoskeletal: No symptoms reported Skin: No symptoms reported Hematologic/Lymphatic: No symptoms reported Neurological/Psychological: No symptoms reported -: Yes All other systems reviewed and negative Physical Exam - Vital signs Vitals: Temp Pulse Resp BP Pulse Ox 97.9 F 71 24 H 129/61 H 99 04/02/18 12:14 04/02/18 12:14 04/02/18 12:14 04/02/18 12:14 04/02/18 12:14 Interpretation: Normal - General General appearance: Appears well, Alert - HEENT Head: Normocephalic, Atraumatic Eyes: Normal Pupils: PERRL - Respiratory Respiratory status: No respiratory distress Chest status: Nontender Breath sounds: Nonproductive cough, Wheezing Chest palpation: Normal - Cardiovascular Rhythm: Regular Heart sounds: Normal auscultation Murmur: No - Abdominal Inspection: Normal Distension: Distended, Fluid wave Bowel sounds: Normal Tenderness: Nontender Organomegaly: No organomegaly - Back Back: Normal, Nontender - Extremities General upper extremity: Normal inspection, Nontender, Normal color, Normal ROM, Normal temperature General lower extremity: Normal inspection, Nontender, Edema, Normal color, Normal ROM, Normal temperature. No: Estefania's sign - Neurological Neuro grossly intact: Yes Cognition: Normal Orientation: AAOx4 [place] Coma Scale Eye Opening: Spontaneous Gabriela Coma Scale Verbal: Oriented [place] Coma Scale Motor: Obeys Commands [place] Coma Scale Total: 15 Speech: Normal Motor strength normal: LUE, RUE, LLE, RLE Sensory: Normal - Psychological Associated symptoms: Normal affect, Normal mood - Skin Skin Temperature: Warm Skin Moisture: Dry Skin Color: Normal Course - Re-evaluation Re-evalutation: 04/02/18 16:02 Patient with history of alcoholic cirrhosis, as well as COPD, CHF, continues to smoke approximately 1 pack per daily, also drinks a few beers on a daily basis with occasional marijuana use, was seen at this facility approximately 1 month ago according to patient, and was transferred to tertiary care facility for paracentesis, this is the first and only paracentesis he has had to date, presents today complaining of increased swelling with shortness of breath and a bdominal distention, denies any pain, no fevers, he has wheezing on exam, however his abdomen is distended with a fluid wave, although he is in no acute distress at this time I do believe he warrants a nonemergent paracentesis, therefore I placed a call to radiology, spoke with Fermin garay RA who subsequently spoke with the radiologist and they are willing to do an ultrasound-guided paracentesis today, this plan was discussed with patient who is in agreement as well, anticipate discharge home after paracentesis is performed if patient remains stable 04/02/18 20:10 Patient had successful paracentesis, radiology reports that he took 10 L off of patient, therefore 60 g of albumin have been ordered and are currently infusing, patient does report feeling much better, I did place a call to patient's daughter at his request and reported that patient would be discharged this evening recommended outpatient follow-up with primary care provider and/or gastroenterology to hopefully schedule paracentesis as an outpatient in the future - Vital Signs Vital signs: Temp Pulse Resp BP Pulse Ox 97.9 F 78 18 121/75 96 04/02/18 12:15 04/02/18 19:58 04/02/18 19:58 04/02/18 19:58 04/02/18 19:58 - Laboratory Result Diagrams: 04/02/18 13:28 04/02/18 13:28 Laboratory results interpreted by me: 04/02/18 04/02/18 04/02/18 13:28 13:28 13:28 RBC 2.83 L Hgb 9.3 L Hct 27.4 L RDW 27.0 H Plt Count 83 L Lymphocytes % (Manual) 12 L Eosinophils % (Manual) 25 H Absolute Eos (Manual) 1.9 H PT 19.6 H APTT 51.7 H Sodium 134.7 L Potassium 3.5 L Anion Gap 4 L Calcium 7.6 L Total Bilirubin 3.8 H Direct Bilirubin 1.8 H AST 70 H Alkaline Phosphatase 155 H Albumin 2.3 L Discharge - Discharge Clinical Impression: Abdominal distention, Alcoholic cirrhosis of liver with ascites Condition: Stable Disposition: HOME, SELF-CARE Instructions: Cirrhosis ([facility]), Chronic Alcoholism ([facility]) Additional Instructions: Follow-up with your primary care provider and your oracle solutions architect within the next week for reevaluation. It is possible to schedule outpatient paracentesis procedures in the future if your primary care provider or [employer] solutions architect will set this up for you. Return to the emergency room immediately if symptoms worsen or any returns. Referrals: KELLY JOSE MD [NO LOCAL MD] - Follow up as needed
[2018-04-02] MEDS ORDERED: IPRATROPIUM/ALBUTEROL 0.5-2.5 MG/3 ML AMPUL NEB ONE (15:56)
[2018-04-02] MEDS ORDERED: ALBUTEROL SULFATE 0.083% NEB 2.5 MG/3 ML AMPUL NEB ONE (15:56)
--- NOTE | 2018-04-02 17:18 | EKG REPORT ---
SEVERITY:- NORMAL ECG - SINUS RHYTHM : Confirmed by: Celeste Browning MD 02-Apr-2018 17:17:39
[2018-04-02] MEDS: ALBUMIN HUMAN 12.5 GM/50 ML RTUINJ IV SCH ×5 (17:52→20:44)
--- NOTE | 2018-04-02 17:53 | RADIOLOGY REPORT (SQ) ---
EXAM DESCRIPTION: U/S ABD PARACENTESIS COMPLETED DATE/TIME: 04/02/2018 5:44 pm REASON FOR STUDY: ascites COMPARISON None. LIMITATIONS: None. PROCEDURE: After obtaining informed consent, the patient was brought to the ultrasound suite. The p rocedure was performed with the patient on a gurney. Ultrasound was used to identify a prominent poc ket of ascites in the right lower quadrant. An appropriate access site was selected. The patient wa s prepped and draped in usual sterile fashion. The access site was anesthetized with 6 mL 1% lidoca ine. A Mmvw-V-Vqfmuqyv needle was advanced into the fluid. After aspiration of fluid the needle, th e catheter was advanced off the needle into the fluid. A total of 10,000 mL of clear, straw-colored fluid was removed. The patient tolerated the procedure well and left the department in satisfactory condition.Post procedure albumen was administered in the ED. IMPRESSION: Successful ultrasound-guided paracentesis COMMENT: Patient medication list reviewed: Yes- Quality ID# [id number]:Eligible professional attests to doc umenting in the medical record they obtained, updated, or reviewed the patient's current medications. TECHNICAL DOCUMENTATION: JOB ID: [id number] [employer]- All Rights Reserved Reading location - IP/workstation name: [id number]
[2018-04-02 20:15] LABS: APPEARANCE,URINE CLEAR; BILIRUBIN,URINE NEGATIVE (NEGATIVE); COLOR,URINE AMBER; GLUCOSE, URINE NEGATIVE (NEGATIVE); KETONES,URINE NEGATIVE (NEGATIVE); LEUKOCYTE ESTERASE,URINE NEGATIVE (NEGATIVE); NITRITE,URINE NEGATIVE (NEGATIVE); PROTEIN,URINE NEGATIVE (NEGATIVE); URINE SPECIFIC GRAVITY 1.013
[2018-04-02 20:38] LABS: URINE AMPHETAMINES SCREEN NEGATIVE; URINE BARBITURATES SCREEN NEGATIVE; URINE BENZODIAZEPINES SCREEN NEGATIVE; URINE COCAINE SCREEN NEGATIVE; URINE MARIJUANA (THC) SCREEN NEGATIVE; URINE METHADONE SCREEN NEGATIVE; URINE PHENCYCLIDINE SCREEN NEGATIVE
[2018-04-02 23:32] VITALS: BP 127/75
[2018-04-03 15:28] LABS: PATH REVIEW PATHOLOGIST REVIEWED
== END 2018-04-02 23:31 | disposition home or self-care (01) ==
LOC: ER 12:11
PROC: 0W9G3ZZ Drainage of Peritoneal Cavity, Percutaneous Approach (ICD-10-PCS; principal; 2018-04-02)
DX: K70.31 Alcoholic cirrhosis of liver with ascites (principal); R19.00 Intra-abdominal and pelvic swelling, mass and lump, unspecified site; R63.5 Abnormal weight gain; R06.02 Shortness of breath; R60.0 Localized edema; I50.9 Heart failure, unspecified; I11.0 Hypertensive heart disease with heart failure; F17.200 Nicotine dependence, unspecified, uncomplicated
CPT/HCPCS: 93005; 94640 ×2; 99285; 96365; 96366; 36415; 80307 ×2; 83690; 85025; 85610; 85730; 80053; 81001; 84484; 83880; 71046; 49083; 93010; P9047; A9270 ×2; J7620

== ENCOUNTER 2018-05-17 00:27 | Inpatient (IN) | payer MEDICARE, MEDICAID ==
[2018-05-17 01:37] LABS: ABSOLUTE BASOPHILS # (AUTO) 0.1 10^3/uL (0.0-0.2); ABSOLUTE EOSINOPHILS # (AUTO) 0.5 10^3/uL (0.0-0.6); ABSOLUTE LYMPHOCYTES (AUTO) 1.1 10^3/uL (0.5-4.7); ABSOLUTE MONOCYTES (AUTO) 0.8 10^3/uL (0.1-1.4); ABSOLUTE NEUT (AUTO) 6.9 10^3/uL (1.7-8.2); BASOPHILS % (AUTO) 0.6 % (0-2); EOSINOPHILS % (AUTO) 5.6 % (0-6); HEMATOCRIT 23.7 % (37.9-51.0); HEMOGLOBIN 8.2 g/dL (13.5-17.0); LYMPHOCYTES % (AUTO) 11.9 % (13-45); MEAN CORPUSCULAR HEMOGLOBIN 36.7 pg (27.0-33.4); MEAN CORPUSCULAR HGB CONC 34.5 g/dL (32.0-36.0); MEAN CORPUSCULAR VOLUME 106 fl (80-97); MONOCYTES % (AUTO) 8.5 % (3-13); RED BLOOD COUNT 2.23 10^6/uL (4.35-5.55); RED CELL DISTRIBUTION WIDTH 18.8 % (11.5-14.0); SEGMENTED NEUTROPHILS % (AUTO) 73.4 % (42-78); TOTAL CELLS COUNTED % (AUTO) 100 %; WHITE BLOOD COUNT 9.4 10^3/uL (4.0-10.5)
[2018-05-17 01:41] LABS: INTERNATIONAL RATION (INR) 1.68; PROTHROMBIN TIME 20.6 SEC (11.4-15.4)
[2018-05-17 01:42] LABS: PARTIAL THROMBOPLASTIN TIME 50.9 SEC (23.5-35.8)
[2018-05-17 02:02] LABS: PLATELET COUNT 77 10^3/uL (150-450)
[2018-05-17 02:03] LABS: ALANINE AMINOTRANSFERASE 25 U/L (21-72); ALBUMIN 2.4 g/dL (3.5-5.0); ALKALINE PHOSPHATASE 148 U/L (38-126); ANION GAP 10 (5-19); ASPARTATE AMINO TRANSFERASE 73 U/L (17-59); BILIRUBIN,DIRECT 2.5 mg/dL (0.0-0.4); BILIRUBIN,TOTAL 5.3 mg/dL (0.2-1.3); BLOOD UREA NITROGEN 8 mg/dL (7-20); CALCIUM 7.4 mg/dL (8.4-10.2); CARBON DIOXIDE 27 mmol/L (22-30); CHLORIDE 100 mmol/L (98-107); CREATINE KINASE 275 U/L (55-170); GLUCOSE 87 mg/dL (75-110); POTASSIUM 3.4 mmol/L (3.6-5.0); SODIUM 137.3 mmol/L (137-145)
[2018-05-17 02:17] LABS: CREATINE KINASE MB 3.47 ng/mL (<4.55); TROPONIN I 0.018 ng/mL
--- NOTE | 2018-05-17 02:45 | ER Document Report ---
ED General - General Chief Complaint: General Weakness Stated Complaint: WEAKNESS Time Seen by Provider: 05/17/18 00:50 Notes: Patient is a 50-year-old male presents to the emergency department for generalized weakness. Patient is a chronic alcoholic with liver cirrhosis, congestive heart failure, hyperlipidemia, anemia who presents to the emergency department with generalized weakness. Patient states his bilateral lower extremities are more swollen than normal and he was unable to walk around his house today. Patient was brought to the emergency department by EMS who states patient's house is disheveled and there are multiple bugs walking around to the patient upon their arrival. Patient is denying any chest pain, shortness of breath, abdominal pain, fever. Patient is able to tell staff the month and year but is unsure of what day it is. According to EMS patient's daughter lives down the street to routinely checks on the patient. Daughter told EMS on scene the patient potentially could have only been on the floor for 24 hours since her last visit. Past medical history: Cirrhosis, alcoholism, congestive heart failure, hyperlipidemia, hypertension, anemia Medications: Lasix, spironolactone, lisinopril, iron Allergies: Penicillin, sulfa TRAVEL OUTSIDE OF THE [place] IN LAST 30 DAYS: No - Related Data Allergies/Adverse Reactions: peanut Allergy (Verified 04/02/18 12:12) Penicillins Allergy (Verified 04/02/18 12:12) Sulfa (Sulfonamide Antibiotics) Allergy (Verified 04/02/18 12:12) Past Medical History - General Information source: Patient, Relative, Emergency Med Personnel - Social History Smoking Status: Current Every Day Smoker Chew tobacco use (# tins/day): Yes Frequency of alcohol use: Heavy Drug Abuse: None Family History: Arthritis, CAD, Hyperlipidemia, Hypertension, Malignancy Patient has suicidal ideation: No Patient has homicidal ideation: No - Past Medical History Cardiac Medical History: Reports: Hx Congestive Heart Failure, Hx Hypercholesterolemia, Hx Hypertension Renal/ Medical History: Denies: Hx Peritoneal Dialysis GI Medical History: Reports: Hx Cirrhosis Psychiatric Medical History: Reports: Hx Depression - Immunizations Immunizations up to date: Yes Hx Diphtheria, Pertussis, Tetanus Vaccination: Yes Review of Systems - Review of Systems Constitutional: See HPI, Weakness EENT: No symptoms reported Cardiovascular: See HPI Respiratory: See HPI Gastrointestinal: See HPI Genitourinary: No symptoms reported Male Genitourinary: No symptoms reported Musculoskeletal: See HPI Skin: See HPI Hematologic/Lymphatic: No symptoms reported Neurological/Psychological: Weakness Physical Exam - Vital signs Vitals: Resp 17 05/17/18 00:55 - Notes Notes: GENERAL: Alert, interacts well. No acute distress. HEAD: Normocephalic, atraumatic. EYES: Pupils equal, round, and reactive to light. Extraocular movements intact. ENT: Oral mucosa moist, tongue midline. NECK: Full range of motion. Supple. Trachea midline. LUNGS: Clear to auscultation bilaterally, no wheezes, rales, or rhonchi. No respiratory distress. HEART: Regular rate and rhythm. No murmur ABDOMEN: Swollen, distended, obvious fluid wave noted. EXTREMITIES: Moves all 4 extremities spontaneously. normal radial and dorsalis pedis pulses bilaterally. No cyanosis. +2 pitting edema noted up to patient's thighs. Patient's scrotum also appears to be swollen with pitting edema noted. BACK: no cervical, thoracic, lumbar midline tenderness. No saddle anesthesia, normal distal neurovascular exam. NEUROLOGICAL: Alert and oriented x3. Normal speech. cranial nerves II through XII grossly intact PSYCH: Normal affect, normal mood. SKIN: Warm, dry, normal turgor. Course - Re-evaluation Re-evalutation: Patient's labs show no signs of leukocytosis, patient's hemoglobin and hematocrit are 8.2 and 23.7 respectively. Comparable to recent visits when his hemoglobin was 4.5. This appears to be an increase. Patient's INR is 1.68. Patient's potassium is 3.4 which again appears to be around his baseline. Patient's lactic acidosis was 3.7. His ammonia was 41.2 which also seems to be has normal. Patient's urine shows no signs of infection, patient's chest x-ray shows no signs of pneumonia, pneumothorax. Discussed case with hospitalist Dr. Altamirano for admission for generalized lymphadenopathy, weakness, ascites who agrees with admission. - Vital Signs Vital signs: Temp Pulse Resp BP Pulse Ox 98.3 F 91 20 129/41 H 96 05/17/18 04:51 05/17/18 05:44 05/17/18 04:51 05/17/18 04:51 05/17/18 04:51 - Laboratory Result Diagrams: 05/17/18 01:08 05/17/18 01:08 Laboratory results interpreted by me: 05/17/18 05/17/18 05/17/18 01:08 01:08 01:08 RBC 2.23 L Hgb 8.2 L Hct 23.7 L MCV 106 H MCH 36.7 H RDW 18.8 H Plt Count 77 L Lymphocytes % 11.9 L PT 20.6 H APTT 50.9 H Potassium 3.4 L Lactic Acid Calcium 7.4 L Total Bilirubin 5.3 H Direct Bilirubin 2.5 H AST 73 H Alkaline Phosphatase 148 H Ammonia Creatine Kinase 275 H Albumin 2.4 L Urine Bilirubin Urine Urobilinogen 05/17/18 05/17/18 05/17/18 01:08 01:08 02:58 RBC Hgb Hct MCV MCH RDW Plt Count Lymphocytes % PT APTT Potassium Lactic Acid 3.7 H Calcium Total Bilirubin Direct Bilirubin AST Alkaline Phosphatase Ammonia 41.2 H Creatine Kinase Albumin Urine Bilirubin SMALL H Urine Urobilinogen 4.0 H Discharge - Discharge Clinical Impression: Lymphedema of both lower extremities, Weakness Ascites Qualifiers: Ascites type: due to alcoholic cirrhosis Qualified Code(s): K70.31 - Alcoholic cirrhosis of liver with ascites Condition: Stable Disposition: ADMITTED INPATIENT Admitting Provider: Hospitalist - Dr. Altamirano Unit Admitted: [facility]
[2018-05-17] MEDS ORDERED: IPRATROPIUM/ALBUTEROL 0.5-2.5 MG/3 ML AMPUL NEB PRN (02:46)
[2018-05-17] MEDS ORDERED: MAGNESIUM HYDROXIDE SUSP 30 ML UDCUP PO PRN (02:46)
[2018-05-17] MEDS ORDERED: PHYTONADIONE INJ 10 MG/1 ML AMPULE SUBCUT ONE (02:46)
[2018-05-17] MEDS ORDERED: MAG HYDROX/AL HYDROX/SIMETH SUSP 30 ML UDCUP PO PRN (02:46)
--- NOTE | 2018-05-17 02:49 | RADIOLOGY REPORT (SQ) ---
EXAM DESCRIPTION: XR CHEST 1 VIEW COMPLETED DATE/TME: 05/17/2018 01:33 CLINICAL HISTORY: 58 years, Male, weakness COMPARISON: 07/08/2014 NUMBER OF VIEWS: One TECHNIQUE: AP view of the chest LIMITATIONS: None. FINDINGS: There is bibasilar subsegmental atelectasis. There is no focal consolidation. The heart is normal in size. There is no pneumothorax or pleural effusion. No fracture is identified. IMPRESSION: No acute cardiopulmonary abnormality copyright 2010 [employer]- All Rights Reserved
[2018-05-17] MEDS ORDERED: SPIRONOLACTONE 25 MG TABLET PO ONE (03:00)
[2018-05-17] MEDS ORDERED: FOLIC ACID 1 MG TABLET PO ONE (03:00)
[2018-05-17] MEDS ORDERED: THIAMINE HCL 100 MG, FOLIC ACID 1 MG in NORMAL SALINE 250 ML IV ONE (03:00)
[2018-05-17] MEDS ORDERED: FUROSEMIDE INJ/PF 40 MG/4 ML SDV IV ONE (03:00)
[2018-05-17] MEDS ORDERED: DEXTROSE 40% GEL 15 GM TUBE PO PRN ×2 (03:07)
[2018-05-17] MEDS ORDERED: GLUCAGON,HUMAN RECOMB 1 MG INJ IM PRN (03:07)
[2018-05-17] MEDS ORDERED: DEXTROSE 50%-WATER 25 GM/50 ML DISP.SYRIN IV ONE (03:07)
[2018-05-17] MEDS ORDERED: DEXTROSE 50%-WATER 25 GM/50 ML DISP.SYRIN IV PRN ×2 (03:07)
[2018-05-17 03:18] LABS: APPEARANCE,URINE CLEAR; BILIRUBIN,URINE SMALL (NEGATIVE); COLOR,URINE AMBER; GLUCOSE, URINE NEGATIVE (NEGATIVE); KETONES,URINE NEGATIVE (NEGATIVE); LEUKOCYTE ESTERASE,URINE NEGATIVE (NEGATIVE); NITRITE,URINE NEGATIVE (NEGATIVE); PROTEIN,URINE NEGATIVE (NEGATIVE); URINE SPECIFIC GRAVITY 1.019
[2018-05-17 03:19] LABS: PHOSPHORUS 3.2 mg/dL (2.5-4.5)
[2018-05-17] MEDS ORDERED: THIAMINE HCL INJ 200 MG/2 ML VIAL ONE (03:25)
[2018-05-17] MEDS ORDERED: FOLIC ACID INJ 5 MG/1 ML 10 ML VIAL ONE (03:26)
[2018-05-17] MEDS ORDERED: LACTULOSE SYRUP 20 GM/30 ML UDCUP PO ONE (04:30)
--- NOTE | 2018-05-17 04:44 | PDOC H&P ---
History of Present Illness Admission Date/PCP: 05/17/18 03:08 Patient complains of: Edema and fatigue History of Present Illness: JEROME ALVAREZ is a 58 year old male with a past medical history of alcohol dependence, hepatic cirrhosis and tobacco dependence. Patient is a poor historian but presents with several days of abdominal distention without pain, anorexia, profound fatigue, lower extremity and scrotal edema. Patient lives alone and presents to the emergency room disheveled contaminated by fecal matter. He is awake and alert with complaints of above denying abdominal pain fever nausea or vomiting. Admits to previous episodes of alcohol withdrawal DTs and continues to several beers per day. In the emergency room he is found to be profoundly anemic, coagulopathic, thrombocytopenic with generalized anasarca. His labs reveal alcoholic liver disease calculated 1 year mortality rate is greater than 95%. He lives alone and is unaware of his medication regiment. Patient expresses interest in home health but verifies his CODE STATUS is full code. Past Medical History Cardiac Medical History: Reports: Congestive Heart Failure, Hyperlipidema, Hypertension GI Medical History: Reports: Cirrhosis Psychiatric Medical History: Reports: Alcohol Dependency, Depression, Tobacco Dependency Past Surgical History Past Surgical History: Reports: None Social History Information Source: Patient Lives with: Alone Smoking Status: Current Every Day Smoker Frequency of Alcohol Use: Heavy Drugs: None - Advance Directive Resuscitation Status: Full Code Family History Family History: Arthritis, CAD, Hyperlipidemia, Hypertension, Malignancy Parental Family History Reviewed: Yes Children Family History Reviewed: Yes Sibling(s) Family History Reviewed.: Yes Medication/Allergy Home Medications: Carvedilol 12.5 mg PO BID 07/14/14 Lisinopril [Prinivil 2.5 mg Tablet] 2.5 mg PO DAILY 07/14/14 Albuterol Sulfate [Ventolin 0.083% Neb 2.5 mg/3 mL Ampul] 1 puff IH Q4H 02/28/18 Furosemide [Lasix 40 mg Tablet] 1 tab PO DAILY 02/28/18 Ranitidine HCl 1 tab PO BID 02/28/18 Spironolactone 25 mg PO BID 02/28/18 Ferrous Sulfate 324 mg PO BID 04/02/18 Folic Acid [Folvite 1 mg Tablet] 1 mg PO DAILY 04/02/18 Mv,Calcium,Min/Iron/Folic/Vitk [Multi For Her Tablet] 1 each PO DAILY 04/02/18 Tamsulosin HCl [Flomax] 0.4 mg PO DAILY 04/02/18 Vitamin B Complex [Vitamin B-100 Complex] 1 tab PO DAILY 04/02/18 Allergies/Adverse Reactions: peanut Allergy (Verified 04/02/18 12:12) Penicillins Allergy (Verified 04/02/18 12:12) Sulfa (Sulfonamide Antibiotics) Allergy (Verified 04/02/18 12:12) Review of Systems Constitutional: PRESENT: as per HPI, anorexia, fatigue, weakness, weight gain. ABSENT: fever(s) Eyes: ABSENT: visual disturbances Ears: ABSENT: hearing changes Nose, Mouth, and Throat: PRESENT: vertigo. ABSENT: headache(s), mouth pain, sore throat Cardiovascular: PRESENT: dyspnea on exertion, edema. ABSENT: chest pain, palpitations Respiratory: PRESENT: cough, dyspnea. ABSENT: hemoptysis, sputum, other Gastrointestinal: PRESENT: as per HPI, bloating, nausea. ABSENT: abdominal pain, constipation, diarrhea, dysphagia, heartburn, vomiting Genitourinary: PRESENT: as per HPI Musculoskeletal: PRESENT: as per HPI. ABSENT: joint swelling Integumentary: PRESENT: lesions, pruritus, rash Neurological: PRESENT: paresthesias, vertigo, weakness. ABSENT: abnormal gait, abnormal speech, confusion, dizziness, focal weakness, syncope Psychiatric: ABSENT: anxiety, depression, homidical ideation, suicidal ideation Endocrine: ABSENT: cold intolerance, heat intolerance, polydipsia, polyuria Hematologic/Lymphatic: ABSENT: easy bleeding, easy bruising Physical Exam Vital Signs: Temp Pulse Resp BP Pulse Ox 97.6 F 87 19 109/62 93 05/17/18 01:19 05/17/18 01:19 05/17/18 03:01 05/17/18 03:01 05/17/18 03:01 Intake & Output 05/15/18 05/16/18 05/17/18 11:59 11:59 11:59 Intake Total 251.2 Balance 251.2 General appearance: PRESENT: no acute distress, cooperative, disheveled, mild distress, obese Head exam: PRESENT: atraumatic, normocephalic Eye exam: PRESENT: conjunctiva pale, EOMI, PERRLA, scleral icterus Ear exam: PRESENT: normal external ear exam Mouth exam: PRESENT: moist, tongue midline Teeth exam: PRESENT: dental caries Neck exam: ABSENT: carotid bruit, JVD, lymphadenopathy, thyromegaly Respiratory exam: PRESENT: clear to auscultation michelle, crackles, prolonged exp iratory phas. ABSENT: rales, rhonchi, wheezes Cardiovascular exam: PRESENT: RRR. ABSENT: diastolic murmur, rubs, systolic murmur Pulses: PRESENT: normal dorsalis pedis pul Vascular exam: PRESENT: normal capillary refill GI/Abdominal exam: PRESENT: ascites, diminished bowel sounds, distended, firm, hypoactive bowel sounds, normal bowel sounds, soft. ABSENT: guarding, mass, organolmegaly, rebound, tenderness Rectal exam: PRESENT: deferred Extremities exam: PRESENT: clubbing, full ROM, pedal edema, tenderness, +2 edema. ABSENT: calf tenderness Musculoskeletal exam: PRESENT: tenderness. ABSENT: ambulatory, deformity, dislocation Neurological exam: PRESENT: alert, awake, oriented to person, oriented to place, oriented to time, oriented to situation, ataxia, CN II-XII grossly intact. ABSENT: motor sensory deficit Psychiatric exam: PRESENT: appropriate affect, normal mood. ABSENT: homicidal ideation, suicidal ideation Skin exam: PRESENT: abrasion, dry, intact, rash, warm. ABSENT: cyanosis Results Laboratory Results: 05/17/18 01:08 05/17/18 01:08 05/17/18 05/17/18 05/17/18 01:08 01:08 01:08 WBC 9.4 RBC 2.23 L Hgb 8.2 L Hct 23.7 L MCV 106 H MCH 36.7 H MCHC 34.5 RDW 18.8 H Plt Count 77 L Seg Neutrophils % 73.4 Lymphocytes % 11.9 L Monocytes % 8.5 Eosinophils % 5.6 Basophils % 0.6 Absolute Neutrophils 6.9 Absolute Lymphocytes 1.1 Absolute Monocytes 0.8 Absolute Eosinophils 0.5 Absolute Basophils 0.1 Sodium 137.3 Potassium 3.4 L Chloride 100 Carbon Dioxide 27 Anion Gap 10 BUN 8 Creatinine 0.63 Est GFR ( Amer) > 60 Est GFR (Non-Af Amer) > 60 Glucose 87 Lactic Acid 3.7 H Calcium 7.4 L Phosphorus Magnesium Total Bilirubin 5.3 H AST 73 H ALT 25 Alkaline Phosphatase 148 H Ammonia Total Protein 7.0 Albumin 2.4 L Urine Color Urine Appearance Urine pH Ur Specific [place] Urine Protein Urine Glucose (UA) Urine Ketones Urine Blood Urine Nitrite Ur Leukocyte Esterase Urine WBC (Auto) Urine RBC (Auto) 05/17/18 05/17/18 05/17/18 01:08 01:08 02:58 WBC RBC Hgb Hct MCV MCH MCHC RDW Plt Count Seg Neutrophils % Lymphocytes % Monocytes % Eosinophils % Basophils % Absolute Neutrophils Absolute Lymphocytes Absolute Monocytes Absolute Eosinophils Absolute Basophils Sodium Potassium Chloride Carbon Dioxide Anion Gap BUN Creatinine Est GFR ( Amer) Est GFR (Non-Af Amer) Glucose Lactic Acid Calcium Phosphorus 3.2 Magnesium 2.1 Total Bilirubin AST ALT Alkaline Phosphatase Ammonia 41.2 H Total Protein Albumin Urine Color LORRAINE Urine Appearance CLEAR Urine pH 6.0 Ur Specific [place] 1.019 Urine Protein NEGATIVE Urine Glucose (UA) NEGATIVE Urine Ketones NEGATIVE Urine Blood NEGATIVE Urine Nitrite NEGATIVE Ur Leukocyte Esterase NEGATIVE Urine WBC (Auto) 1 Urine RBC (Auto) 0 05/17/18 05/17/18 05/17/18 01:08 01:08 01:08 Creatine Kinase 275 H CK-MB (CK-2) 3.47 Troponin I 0.018 NT-Pro-B Natriuret Pep 289 Impressions: Chest X-Ray 05/17/18 01:33 IMPRESSION: No acute cardiopulmonary abnormality copyright 2011 [employer]- All Rights Reserved Assessment & Plan - Diagnosis (1) Hepatic failure due to alcoholism Is this a current diagnosis for this admission?: Yes Plan: Thiamine, folate, Ativan as needed, supportive measures, calculation for alcoholic liver disease 1 year mortality greater than 95%. Hospice consulted (2) Anasarca Is this a current diagnosis for this admission?: Yes Plan: Secondary to #1 with low albumin gentle diuresis with Aldactone and Lasix, consider albumin if developing SBP hypertension. (3) Hypoalbuminemia Is this a current diagnosis for this admission?: Yes Plan: Secondary to hepatic failure, consider albumin if hypotensive, nutrition (4) Thrombocytopenia Is this a current diagnosis for this admission?: Yes Plan: Secondary to #1 and alcoholism. Supportive care. Follow-up CBC (5) Macrocytic anemia Is this a current diagnosis for this admission?: Yes Plan: Secondary to alcoholism, thiamine and folate ordered follow-up anemia studies (6) Coagulopathy Is this a current diagnosis for this admission?: Yes Plan: Secondary #1, trial subcu vitamin K (7) Alcohol withdrawal Is this a current diagnosis for this admission?: Yes Plan: Thiamine, folate, Ativan as needed - Time Time Spent: 50 to 70 Minutes - Inpatient Certification Medical Necessity: Need Close Monitoring Due to Risk of Patient Decompensation
[2018-05-17] MEDS ORDERED: NICOTINE 14 MG/24 HR PATCH.TD24 TD ONE (04:45)
[2018-05-17] MEDS: POTASSI CL 20 MEQ/50 ML RIDER 20 MEQ/50 ML RTUPB IV SCH ×2 (04:46→06:07)
--- NOTE | 2018-05-17 08:37 | EKG REPORT ---
SEVERITY:- BORDERLINE ECG - SINUS RHYTHM LOW VOLTAGE THROUGHOUT MINIMAL ST DEPRESSION, DIFFUSE LEADS BORDERLINE PROLONGED QT INTERVAL : Confirmed by: Celeste Browning MD 17-May-2018 08:36:55
[2018-05-17] MEDS: IPRATROPIUM/ALBUTEROL 0.5-2.5 MG/3 ML AMPUL NEB SCH ×2 (08:52→20:18)
[2018-05-17] MEDS ORDERED: POTASSIUM CHLORIDE 10 MEQ CAPSULE.ER PO ONE (09:30)
[2018-05-17] MEDS ORDERED: FUROSEMIDE INJ/PF 40 MG/4 ML SDV IV SCH (10:00)
[2018-05-17] MEDS: CARVEDILOL 3.125 MG TABLET PO SCH ×2 (10:43→17:32)
[2018-05-17] MEDS: LACTULOSE SYRUP 20 GM/30 ML UDCUP PO SCH ×2 (10:43→21:53)
[2018-05-17] MEDS: DOCUSATE SODIUM 100 MG CAPSULE PO SCH ×2 (10:43→17:35)
[2018-05-17] MEDS: SPIRONOLACTONE 25 MG TABLET PO SCH ×3 (10:43→21:54)
[2018-05-17] MEDS: VITAMIN A 10,000 UNIT CAPSULE PO SCH (10:46)
[2018-05-17] MEDS: FOLIC ACID 1 MG TABLET PO SCH (10:47)
[2018-05-17] MEDS: ASCORBIC ACID 500 MG TABLET PO SCH ×2 (10:47→17:39)
--- NOTE | 2018-05-17 18:55 | PDOC PROGRESS REPORT ---
Subjective Progress Note for:: 05/17/18 Subjective:: This is a 58 year old male with a past medical history of alcohol dependence, end stage liver disease and tobacco dependence who presented with increasing abdominal distention, pedal and scrotal edema. In the emergency room he is found to be profoundly anemic, coagulopathic, thrombocytopenic with generalized anasarca. Upon encounter, he is not in distress. He says he has mild SOB which improved with breathing treatment. He has abdominal tightness but denies pain. Denies fever or chills. Denies chest pain. No nausea or vomiting. He admits to still drinking alcohol. Consulted radiology for paracentesis. Apparently, there is no regular staff reportedly and he is scheduled for the tap on Saturday morning. Reason For Visit: HEPATIC FAILURE ANEMIA ETOH DEPENDENCE Physical Exam Vital Signs: Temp Pulse Resp BP Pulse Ox 97.9 F 85 14 113/49 L 92 05/17/18 15:43 05/17/18 15:43 05/17/18 15:43 05/17/18 15:43 05/17/18 15:43 Intake & Output 05/16/18 05/17/18 05/18/18 06:59 06:59 06:59 Intake Total 285.2 272 Output Total 450 550 Balance -164.8 -278 Weight 186 lb 8.177 oz General appearance: PRESENT: no acute distress, other - generalized edema Head exam: PRESENT: atraumatic, normocephalic Eye exam: PRESENT: conjunctiva pink, EOMI, PERRLA. ABSENT: scleral icterus Ear exam: PRESENT: normal external ear exam Mouth exam: PRESENT: moist, tongue midline Neck exam: ABSENT: carotid bruit, JVD, lymphadenopathy, thyromegaly Respiratory exam: PRESENT: clear to auscultation michelle. ABSENT: rales, rhonchi, wheezes Cardiovascular exam: PRESENT: RRR. ABSENT: diastolic murmur, rubs, systolic murmur Pulses: PRESENT: normal dorsalis pedis pul GI/Abdominal exam: PRESENT: ascites, distended. ABSENT: tenderness Rectal exam: PRESENT: deferred Extremities exam: PRESENT: +2 edema Musculoskeletal exam: PRESENT: other - severely elongated and deformed toenails Neurological exam: PRESENT: alert, awake, oriented to person, oriented to place, oriented to time, oriented to situation, CN II-XII grossly intact. ABSENT: motor sensory deficit Results Laboratory Results: 05/17/18 01:08 05/17/18 08:55 05/17/18 05/17/18 05/17/18 01:08 01:08 01:08 WBC 9.4 RBC 2.23 L Hgb 8.2 L Hct 23.7 L MCV 106 H MCH 36.7 H MCHC 34.5 RDW 18.8 H Plt Count 77 L Seg Neutrophils % 73.4 Lymphocytes % 11.9 L Monocytes % 8.5 Eosinophils % 5.6 Basophils % 0.6 Absolute Neutrophils 6.9 Absolute Lymphocytes 1.1 Absolute Monocytes 0.8 Absolute Eosinophils 0.5 Absolute Basophils 0.1 Sodium 137.3 Potassium 3.4 L Chloride 100 Carbon Dioxide 27 Anion Gap 10 BUN 8 Creatinine 0.63 Est GFR ( Amer) > 60 Est GFR (Non-Af Amer) > 60 Glucose 87 Lactic Acid 3.7 H Calcium 7.4 L Phosphorus Magnesium Total Bilirubin 5.3 H AST 73 H ALT 25 Alkaline Phosphatase 148 H Ammonia Total Protein 7.0 Albumin 2.4 L Urine Color Urine Appearance Urine pH Ur Specific [place] Urine Protein Urine Glucose (UA) Urine Ketones Urine Blood Urine Nitrite Ur Leukocyte Esterase Urine WBC (Auto) Urine RBC (Auto) 05/17/18 05/17/18 05/17/18 01:08 01:08 02:58 WBC RBC Hgb Hct MCV MCH MCHC RDW Plt Count Seg Neutrophils % Lymphocytes % Monocytes % Eosinophils % Basophils % Absolute Neutrophils Absolute Lymphocytes Absolute Monocytes Absolute Eosinophils Absolute Basophils Sodium Potassium Chloride Carbon Dioxide Anion Gap BUN Creatinine Est GFR ( Amer) Est GFR (Non-Af Amer) Glucose Lactic Acid Calcium Phosphorus 3.2 Magnesium 2.1 Total Bilirubin AST ALT Alkaline Phosphatase Ammonia 41.2 H Total Protein Albumin Urine Color LORRAINE Urine Appearance CLEAR Urine pH 6.0 Ur Specific [place] 1.019 Urine Protein NEGATIVE Urine Glucose (UA) NEGATIVE Urine Ketones NEGATIVE Urine Blood NEGATIVE Urine Nitrite NEGATIVE Ur Leukocyte Esterase NEGATIVE Urine WBC (Auto) 1 Urine RBC (Auto) 0 05/17/18 08:55 WBC RBC Hgb Hct MCV MCH MCHC RDW Plt Count Seg Neutrophils % Lymphocytes % Monocytes % Eosinophils % Basophils % Absolute Neutrophils Absolute Lymphocytes Absolute Monocytes Absolute Eosinophils Absolute Basophils Sodium Potassium 3.2 L Chloride Carbon Dioxide Anion Gap BUN Creatinine Est GFR ( Amer) Est GFR (Non-Af Amer) Glucose Lactic Acid Calcium Phosphorus Magnesium Total Bilirubin AST ALT Alkaline Phosphatase Ammonia Total Protein Albumin Urine Color Urine Appearance Urine pH Ur Specific [place] Urine Protein Urine Glucose (UA) Urine Ketones Urine Blood Urine Nitrite Ur Leukocyte Esterase Urine WBC (Auto) Urine RBC (Auto) 05/17/18 05/17/18 05/17/18 01:08 01:08 01:08 Creatine Kinase 275 H CK-MB (CK-2) 3.47 Troponin I 0.018 NT-Pro-B Natriuret Pep 289 Impressions: Chest X-Ray 05/17/18 01:33 IMPRESSION: No acute cardiopulmonary abnormality copyright 2010 [employer]- All Rights Reserved Assessment & Plan - Diagnosis (1) Anasarca Is this a current diagnosis for this admission?: Yes Plan: Secondary to fluid overload related to end stage liver disease. Blood pressures are running low. Will hold off on antihypertensives or diuretics for now. (2) Ascites Qualifiers: Ascites type: due to alcoholic cirrhosis Qualified Code(s): K70.31 - Alcoholic cirrhosis of liver with ascites Is this a current diagnosis for this admission?: Yes Plan: Consulted radiology for paracentesis. Apparently, there is no regular staff reportedly and he is scheduled for the tap on Saturday morning. (3) Coagulopathy Is this a current diagnosis for this admission?: Yes Plan: He was given a dose of vitamin K for his elevated INR. Will repeat INR tomorrow morning. (4) End stage liver disease Is this a current diagnosis for this admission?: Yes Plan: Rediscussed his poor prognosis. He is not a transplant candidate as he continues to drink alcohol. Discussed he is an appropriate palliative care candidate. He says he wants to defer it at this time and "wants to do everything possible" and "live as long as he can". (5) Lactic acidosis Is this a current diagnosis for this admission?: Yes Plan: This could be likely from reduced lactate hepatic clearance. Will repeat lactic acid. Will consider albumin infusion if he continues to have elevated LA. (6) Hypokalemia Is this a current diagnosis for this admission?: Yes Plan: She got 40 meqs of IV Potassium. Repeat K is 3.2. Will give another 60 meqs PO. Will repeat BMP later today. (7) Thrombocytopenia Is this a current diagnosis for this admission?: Yes Plan: Secondary to end stage liver disease. - Time Time Spent with patient: 25-34 minutes
[2018-05-17 19:36] LABS: ANION GAP 6 (5-19); BLOOD UREA NITROGEN 7 mg/dL (7-20); CARBON DIOXIDE 27 mmol/L (22-30); CHLORIDE 103 mmol/L (98-107); POTASSIUM 3.6 mmol/L (3.6-5.0); SODIUM 136.4 mmol/L (137-145)
[2018-05-17 19:40] LABS: GLUCOSE 101 mg/dL (75-110)
[2018-05-17] MEDS: FUROSEMIDE INJ/PF 40 MG/4 ML SDV IV SCH (21:54)
[2018-05-17] MEDS: THIAMINE HCL 100 MG, FOLIC ACID 1 MG in NORMAL SALINE 250 ML IV SCH (21:56)
[2018-05-18 05:28] LABS: INTERNATIONAL RATION (INR) 1.88; PROTHROMBIN TIME 22.5 SEC (11.4-15.4)
[2018-05-18 05:40] LABS: ABSOLUTE BASOPHILS # (AUTO) 0.1 10^3/uL (0.0-0.2); ABSOLUTE EOSINOPHILS # (AUTO) 0.7 10^3/uL (0.0-0.6); ABSOLUTE LYMPHOCYTES (AUTO) 1.2 10^3/uL (0.5-4.7); ABSOLUTE MONOCYTES (AUTO) 0.7 10^3/uL (0.1-1.4); ABSOLUTE NEUT (AUTO) 3.4 10^3/uL (1.7-8.2); BASOPHILS % (AUTO) 1.2 % (0-2); EOSINOPHILS % (AUTO) 10.9 % (0-6); HEMATOCRIT 20.2 % (37.9-51.0); LYMPHOCYTES % (AUTO) 19.6 % (13-45); MEAN CORPUSCULAR HEMOGLOBIN 36.9 pg (27.0-33.4); MEAN CORPUSCULAR HGB CONC 34.7 g/dL (32.0-36.0); MEAN CORPUSCULAR VOLUME 106 fl (80-97); MONOCYTES % (AUTO) 12.3 % (3-13); RED CELL DISTRIBUTION WIDTH 18.4 % (11.5-14.0); TOTAL CELLS COUNTED % (AUTO) 100 %; WHITE BLOOD COUNT 6.1 10^3/uL (4.0-10.5)
[2018-05-18 05:44] LABS: ALANINE AMINOTRANSFERASE 27 U/L (21-72); ALBUMIN 1.8 g/dL (3.5-5.0); ALKALINE PHOSPHATASE 113 U/L (38-126); ASPARTATE AMINO TRANSFERASE 65 U/L (17-59); BILIRUBIN,TOTAL 4.4 mg/dL (0.2-1.3); BLOOD UREA NITROGEN 7 mg/dL (7-20); CALCIUM 7.1 mg/dL (8.4-10.2); GLUCOSE 87 mg/dL (75-110); POTASSIUM 3.3 mmol/L (3.6-5.0)
[2018-05-18 05:49] LABS: ANION GAP 6 (5-19); CARBON DIOXIDE 26 mmol/L (22-30); CHLORIDE 105 mmol/L (98-107)
[2018-05-18] MEDS: SPIRONOLACTONE 25 MG TABLET PO SCH ×3 (05:51→22:21)
[2018-05-18 06:05] LABS: PLATELET COUNT 66 10^3/uL (150-450)
[2018-05-18] MEDS: IPRATROPIUM/ALBUTEROL 0.5-2.5 MG/3 ML AMPUL NEB SCH ×2 (08:36→19:36)
[2018-05-18] MEDS: FOLIC ACID 1 MG TABLET PO SCH (09:15)
[2018-05-18] MEDS: POTASSIUM CHLORIDE 10 MEQ CAPSULE.ER PO SCH (09:15)
[2018-05-18] MEDS: ASCORBIC ACID 500 MG TABLET PO SCH ×2 (09:15→17:12)
[2018-05-18] MEDS: NICOTINE 14 MG/24 HR PATCH.TD24 TD SCH (09:15)
[2018-05-18] MEDS ORDERED: CARVEDILOL 3.125 MG TABLET PO SCH (10:00)
[2018-05-18] MEDS ORDERED: POTASSIUM CHLORIDE 10 MEQ CAPSULE.ER PO ONE (10:15)
[2018-05-18] MEDS: DOCUSATE SODIUM 100 MG CAPSULE PO SCH ×2 (12:08→17:09)
[2018-05-18] MEDS: VITAMIN A 10,000 UNIT CAPSULE PO SCH (12:44)
[2018-05-18] MEDS: LACTULOSE SYRUP 20 GM/30 ML UDCUP PO SCH ×2 (12:45→22:20)
[2018-05-18] MEDS ORDERED: CARVEDILOL 6.25 MG TABLET PO ONE (13:00)
[2018-05-18] MEDS ORDERED: PHYTONADIONE INJ 10 MG/1 ML AMPULE SUBCUT ONE (15:23)
--- NOTE | 2018-05-18 15:28 | PDOC PROGRESS REPORT ---
Subjective Progress Note for:: 05/18/18 Subjective:: This is a 58 year old male with a past medical history of alcohol dependence, end stage liver disease and tobacco dependence who presented with increasing abdominal distention, pedal and scrotal edema. In the emergency room he is found to be profoundly anemic, coagulopathic, thrombocytopenic with generalized anasarca. 05/17: Upon encounter, he is not in distress. He says he has mild SOB which improved with breathing treatment. He has abdominal tightness but denies pain. Denies fever or chills. Denies chest pain. No nausea or vomiting. He admits to still drinking alcohol. Consulted radiology for paracentesis. Apparently, there is no regular staff reportedly and he is scheduled for the tap on Saturday morning. 05/18: No acute issue overnight. He says his breathing is much better today. Continue to have abdominal distention but denies abdominal pain or tenderness. He is scheduled for a paracentesis tomorrow. Reason For Visit: HEPATIC FAILURE ANEMIA ETOH DEPENDENCE Physical Exam Vital Signs: Temp Pulse Resp BP Pulse Ox 98.0 F 96 16 118/42 L 94 05/18/18 11:49 05/18/18 11:49 05/18/18 11:49 05/18/18 11:49 05/18/18 11:49 Intake & Output 05/17/18 05/18/18 05/19/18 06:59 06:59 06:59 Intake Total 285.2 1078.2 50 Output Total 450 950 200 Balance -164.8 128.2 -150 Weight 186 lb 8.177 oz 203 lb 0.732 oz General appearance: PRESENT: no acute distress, well-developed, well-nourished Head exam: PRESENT: atraumatic, normocephalic Eye exam: PRESENT: conjunctiva pink, EOMI, PERRLA. ABSENT: scleral icterus Ear exam: PRESENT: normal external ear exam Mouth exam: PRESENT: moist, tongue midline Neck exam: ABSENT: carotid bruit, JVD, lymphadenopathy, thyromegaly Respiratory exam: PRESENT: clear to auscultation michelle. ABSENT: rales, rhonchi, wheezes Cardiovascular exam: PRESENT: RRR. ABSENT: diastolic murmur, rubs, systolic murmur Pulses: PRESENT: normal dorsalis pedis pul GI/Abdominal exam: PRESENT: ascites, distended. ABSENT: tenderness Rectal exam: PRESENT: deferred Extremities exam: PRESENT: +2 edema, other - elonagted toenails Neurological exam: PRESENT: alert, awake, oriented to person, oriented to place, oriented to time, oriented to situation, CN II-XII grossly intact. ABSENT: basilia r sensory deficit Results Laboratory Results: 05/18/18 05:13 05/18/18 05:13 05/17/18 05/17/18 05/18/18 19:09 19:09 05:13 WBC 6.1 RBC 1.90 L Hgb 7.0 L Hct 20.2 L MCV 106 H MCH 36.9 H MCHC 34.7 RDW 18.4 H Plt Count 66 L Seg Neutrophils % 56.0 Lymphocytes % 19.6 Monocytes % 12.3 Eosinophils % 10.9 H Basophils % 1.2 Absolute Neutrophils 3.4 Absolute Lymphocytes 1.2 Absolute Monocytes 0.7 Absolute Eosinophils 0.7 H Absolute Basophils 0.1 Sodium 136.4 L Potassium 3.6 Chloride 103 Carbon Dioxide 27 Anion Gap 6 BUN 7 Creatinine 0.62 Est GFR ( Amer) > 60 Est GFR (Non-Af Amer) > 60 Glucose 101 Lactic Acid 2.7 H Calcium 7.0 L* Total Bilirubin AST ALT Alkaline Phosphatase Total Protein Albumin Stool Occult Blood 05/18/18 05/18/18 05:13 09:50 WBC RBC Hgb Hct MCV MCH MCHC RDW Plt Count Seg Neutrophils % Lymphocytes % Monocytes % Eosinophils % Basophils % Absolute Neutrophils Absolute Lymphocytes Absolute Monocytes Absolute Eosinophils Absolute Basophils Sodium 137.0 Potassium 3.3 L Chloride 105 Carbon Dioxide 26 Anion Gap 6 BUN 7 Creatinine 0.57 Est GFR ( Amer) > 60 Est GFR (Non-Af Amer) > 60 Glucose 87 Lactic Acid Calcium 7.1 L Total Bilirubin 4.4 H AST 65 H ALT 27 Alkaline Phosphatase 113 Total Protein 6.0 L Albumin 1.8 L Stool Occult Blood POSITIVE 05/17/18 05/17/18 05/17/18 01:08 01:08 01:08 Creatine Kinase 275 H CK-MB (CK-2) 3.47 Troponin I 0.018 NT-Pro-B Natriuret Pep 289 Impressions: Chest X-Ray 05/17/18 01:33 IMPRESSION: No acute cardiopulmonary abnormality copyright 2011 [employer]- All Rights Reserved Assessment & Plan - Diagnosis (1) Anasarca Is this a current diagnosis for this admission?: Yes Plan: Secondary to fluid overload related to end stage liver disease. Blood pressures are running low. Will hold off on antihypertensives or diuretics for now. (2) Ascites Qualifiers: Ascites type: due to alcoholic cirrhosis Qualified Code(s): K70.31 - Alcoholic cirrhosis of liver with ascites Is this a current diagnosis for this admission?: Yes Plan: 05/17: Consulted radiology for paracentesis. Apparently, there is no regular staff reportedly and he is scheduled for the tap on Saturday morning. 05/18: Await paracentesis tomorrow. (3) Acute on chronic anemia Is this a current diagnosis for this admission?: Yes Plan: Hemoglobin went down to 7.0 from 8.2. No gross bleeding but FOBT did come back positive. Will consult surgery as he may need EGD. Continue to monitor H&H. Protonix 40 mg bid. (4) Coagulopathy Is this a current diagnosis for this admission?: Yes Plan: 05/17: He was given a dose of vitamin K for his elevated INR. Will repeat INR tomorrow morning. 05/18: INR is 1.8. Will give another 10 mg of Vitamin K. (5) End stage liver disease Is this a current diagnosis for this admission?: Yes Plan: Rediscussed his poor prognosis. He is not a transplant candidate as he continues to drink alcohol. Discussed he is an appropriate palliative care candidate. He says he wants to defer it at this time and "wants to do everything possible" and "live as long as he can". (6) Lactic acidosis Is this a current diagnosis for this admission?: Yes Plan: Improving. This could be likely from reduced lactate hepatic clearance. Will consider albumin infusion if he continues to have elevated LA. 05/18: Repeat lactic acid today. (7) Hypokalemia Is this a current diagnosis for this admission?: Yes Plan: She got 40 meqs of IV Potassium. Repeat K is 3.2. Will give another 60 meqs PO. Will repeat BMP later today. 05/18: Potassium is low this morning at 3.3. He is already on scheduled 40 meqs PO daily. Will add another 40 meqs once. (8) Thrombocytopenia Is this a current diagnosis for this admission?: Yes Plan: Secondary to end stage liver disease. - Time Time Spent with patient: 25-34 minutes
[2018-05-18] MEDS: FUROSEMIDE INJ/PF 40 MG/4 ML SDV IV SCH ×2 (15:33→22:20)
[2018-05-18] MEDS ORDERED: NORMAL SALINE 250 ML IV PRN ×2 (15:53)
[2018-05-18 16:28] LABS: ABSOLUTE BASOPHILS # (AUTO) 0.1 10^3/uL (0.0-0.2); ABSOLUTE EOSINOPHILS # (AUTO) 0.9 10^3/uL (0.0-0.6); ABSOLUTE MONOCYTES (AUTO) 0.6 10^3/uL (0.1-1.4); ABSOLUTE NEUT (AUTO) 3.7 10^3/uL (1.7-8.2); BASOPHILS % (AUTO) 1.2 % (0-2); EOSINOPHILS % (AUTO) 13.9 % (0-6); HEMATOCRIT 19.9 % (37.9-51.0); LYMPHOCYTES % (AUTO) 15.3 % (13-45); MEAN CORPUSCULAR HEMOGLOBIN 37.4 pg (27.0-33.4); MEAN CORPUSCULAR HGB CONC 34.4 g/dL (32.0-36.0); MEAN CORPUSCULAR VOLUME 109 fl (80-97); MONOCYTES % (AUTO) 10.3 % (3-13); RED BLOOD COUNT 1.84 10^6/uL (4.35-5.55); RED CELL DISTRIBUTION WIDTH 19.4 % (11.5-14.0); SEGMENTED NEUTROPHILS % (AUTO) 59.3 % (42-78); TOTAL CELLS COUNTED % (AUTO) 100 %; WHITE BLOOD COUNT 6.3 10^3/uL (4.0-10.5)
[2018-05-18] MEDS: CEFTRIAXONE 1 GM/D5W RTU 1 GM/50 ML RTUPB IV SCH (16:29)
[2018-05-18] MEDS: PANTOPRAZOLE SODIUM 40 MG VIAL IV SCH ×2 (16:29→22:19)
[2018-05-18 16:46] LABS: HEMOGLOBIN 6.9 g/dL (13.5-17.0)
[2018-05-18 16:47] LABS: PLATELET COUNT 60 10^3/uL (150-450)
[2018-05-18] MEDS: ALBUTEROL SULFATE HFA (90 MCG/PUFF) 200 PUFF/8.5 GM MDI IH PRN (17:12)
[2018-05-18] MEDS ORDERED: DEXTROSE 40% GEL 15 GM TUBE PO PRN (19:54)
[2018-05-18] MEDS ORDERED: GLUCAGON,HUMAN RECOMB 1 MG INJ SUBCUT PRN (19:54)
--- NOTE | 2018-05-18 19:54 | PDOC CONSULTATION ---
Consultation Consult Date: 05/18/18 Consult reason:: need for EGD, anemia History of Present Illness Admission Date/PCP: 05/17/18 03:08 History of Present Illness: JEROME ALVAREZ is a 58 year old male with a past medical history of alcohol dependence, end stage liver disease and tobacco dependence who presented with increasing abdominal distention, pedal and scrotal edema. In the emergency room he is found to be profoundly anemic, coagulopathic, thrombocytopenic with generalized anasarca. He reports mild SOB which improved with breathing treatment. He has abdominal tightness but denies pain. Denies fever or chills. Denies chest pain. No nausea or vomiting. He admits to still drinking alcohol. Consulted radiology for paracentesis. Apparently, there is no regular staff reportedly and he is scheduled for the tap on Saturday morning. I was consiulted because of the patient drop of H/H sice admiaaion 2 days ago (from 8.2/23.7 to the current 6.9/19.9). His platelet count is decreased to 65k and his stool are heme occult positive. He had an EG at [facility] in March and it was significant for gastropathy and esophageal varices. Past Medical History Cardiac Medical History: Reports: Congestive Heart Failure, Hyperlipidema, Hypertension GI Medical History: Reports: Cirrhosis Psychiatric Medical History: Reports: Alcohol Dependency, Depression, Tobacco Dependency Past Surgical History Past Surgical History: Reports: None Social History Lives with: Alone Smoking Status: Current Every Day Smoker Frequency of Alcohol Use: Heavy Drugs: None - Advance Directive Resuscitation Status: Full Code Family History Family History: Arthritis, CAD, Hyperlipidemia, Hypertension, Malignancy Parental Family History Reviewed: Yes - arthritis Children Family History Reviewed: No Sibling(s) Family History Reviewed.: No - HTN, malignancy Medication/Allergy Home Medications: Albuterol Sulfate [Proair Hfa Inhalation Aerosol 8.5 gm Mdi] 1 puff IH Q4HP PRN 05/17/18 Carvedilol [Coreg 3.125 mg Tablet] 3.125 mg PO Q12 05/17/18 Cyanocobalamin (Vitamin B-12) [Vitamin B-12 100 mcg Tablet] 100 mg PO DAILY 05/17/18 Ferrous Sulfate 324 mg PO BID 05/17/18 Folic Acid [Folvite 1 mg Tablet] 1 mg PO DAILY 05/17/18 Furosemide [Lasix 40 mg Tablet] 40 mg PO DAILY 05/17/18 Multivit with Minerals/Lutein [Vitrum Senior Tablet] 1 each PO DAILY 05/17/18 Ranitidine HCl [Zantac 150 mg Tablet] 150 mg PO BID 05/17/18 Spironolactone [Aldactone 25 mg Tablet] 25 mg PO BID 05/17/18 Tamsulosin HCl [Flomax 0.4 mg Cap.sr] 0.4 mg PO QPM 05/17/18 Allergies/Adverse Reactions: peanut Allergy (Verified 04/02/18 12:12) Penicillins Allergy (Verified 04/02/18 12:12) Sulfa (Sulfonamide Antibiotics) Allergy (Verified 04/02/18 12:12) Physical Exam Vital Signs: Temp Pulse Resp BP Pulse Ox 98.8 F 78 20 118/56 L 99 05/18/18 19:15 05/18/18 19:15 05/18/18 19:15 05/18/18 19:15 05/18/18 19:15 Intake & Output 05/17/18 05/18/18 05/19/18 06:59 06:59 06:59 Intake Total 285.2 1078.2 440 Output Total 450 950 400 Balance -164.8 128.2 40 Weight 84.6 kg 92.1 kg General appearance: PRESENT: no acute distress, disheveled Eye exam: PRESENT: EOMI Mouth exam: PRESENT: neck supple Neck exam: PRESENT: full ROM Respiratory exam: PRESENT: clear to auscultation michelle Cardiovascular exam: PRESENT: RRR GI/Abdominal exam: PRESENT: distended, soft Rectal exam: PRESENT: deferred Extremities exam: PRESENT: full ROM Musculoskeletal exam: PRESENT: full ROM Skin exam: PRESENT: other - dystrophic toenails Results Laboratory Results: 05/18/18 16:00 05/18/18 16:00 05/17/18 05/17/18 05/18/18 19:09 19:09 05:13 WBC 6.1 RBC 1.90 L Hgb 7.0 L Hct 20.2 L MCV 106 H MCH 36.9 H MCHC 34.7 RDW 18.4 H Plt Count 66 L Seg Neutrophils % 56.0 Lymphocytes % 19.6 Monocytes % 12.3 Eosinophils % 10.9 H Basophils % 1.2 Absolute Neutrophils 3.4 Absolute Lymphocytes 1.2 Absolute Monocytes 0.7 Absolute Eosinophils 0.7 H Absolute Basophils 0.1 Sodium 136.4 L Potassium 3.6 Chloride 103 Carbon Dioxide 27 Anion Gap 6 BUN 7 Creatinine 0.62 Est GFR ( Amer) > 60 Est GFR (Non-Af Amer) > 60 Glucose 101 Lactic Acid 2.7 H Calcium 7.0 L* Total Bilirubin AST ALT Alkaline Phosphatase Total Protein Albumin Stool Occult Blood Blood Type Antibody Screen 05/18/18 05/18/18 05/18/18 05:13 09:50 16:00 WBC 6.3 RBC 1.84 L Hgb 6.9 L Hct 19.9 L MCV 109 H MCH 37.4 H MCHC 34.4 RDW 19.4 H Plt Count 60 L Seg Neutrophils % 59.3 Lymphocytes % 15.3 Monocytes % 10.3 Eosinophils % 13.9 H Basophils % 1.2 Absolute Neutrophils 3.7 Absolute Lymphocytes 1.0 Absolute Monocytes 0.6 Absolute Eosinophils 0.9 H Absolute Basophils 0.1 Sodium 137.0 Potassium 3.3 L Chloride 105 Carbon Dioxide 26 Anion Gap 6 BUN 7 Creatinine 0.57 Est GFR ( Amer) > 60 Est GFR (Non-Af Amer) > 60 Glucose 87 Lactic Acid Calcium 7.1 L Total Bilirubin 4.4 H AST 65 H ALT 27 Alkaline Phosphatase 113 Total Protein 6.0 L Albumin 1.8 L Stool Occult Blood POSITIVE Blood Type Antibody Screen 05/18/18 05/18/18 05/18/18 16:00 16:00 16:00 WBC RBC Hgb Hct MCV MCH MCHC RDW Plt Count Seg Neutrophils % Lymphocytes % Monocytes % Eosinophils % Basophils % Absolute Neutrophils Absolute Lymphocytes Absolute Monocytes Absolute Eosinophils Absolute Basophils Sodium Potassium 3.9 Chloride Carbon Dioxide Anion Gap BUN Creatinine Est GFR ( Amer) Est GFR (Non-Af Amer) Glucose Lactic Acid 1.8 Calcium Total Bilirubin AST ALT Alkaline Phosphatase Total Protein Albumin Stool Occult Blood Blood Type A NEGATIVE Antibody Screen NEGATIVE 05/17/18 05/17/18 05/17/18 01:08 01:08 01:08 Creatine Kinase 275 H CK-MB (CK-2) 3.47 Troponin I 0.018 NT-Pro-B Natriuret Pep 289 Impressions: Chest X-Ray 05/17/18 01:33 IMPRESSION: No acute cardiopulmonary abnormality copyright 2011 [employer]- All Rights Reserved Assessment & Plan - Diagnosis (1) Acute on chronic anemia Is this a current diagnosis for this admission?: Yes (2) Anasarca Is this a current diagnosis for this admission?: Yes (3) Ascites Qualifiers: Ascites type: due to alcoholic cirrhosis Qualified Code(s): K70.31 - Alcoh olic cirrhosis of liver with ascites Is this a current diagnosis for this admission?: Yes - Plan Summary Plan Summary: A/ Etoh Abuse Hx esophageal varices identified in EGD done in March 2018 Anemia (6.9/19.9) P/ EGD in AM with Anesthesia to provide sedation. NPO after midnight Patient to receive 1 unit of pheresis platelets in the audograph operator before the procedure. No need to repeat platelets count after platelet transfusion and before procedure. Procedure, risks, benefits, complications explained to the patient, his questions were answered, and he decides to proceed.
[2018-05-18] MEDS ORDERED: CARVEDILOL 6.25 MG TABLET PO SCH (22:00)
[2018-05-18] MEDS: THIAMINE HCL 100 MG, FOLIC ACID 1 MG in NORMAL SALINE 250 ML IV SCH (22:20)
[2018-05-18] MEDS: CARVEDILOL 6.25 MG TABLET PO SCH (22:21)
[2018-05-19 00:09] LABS: HEMATOCRIT 25.4 % (37.9-51.0); HEMOGLOBIN 8.9 g/dL (13.5-17.0); MEAN CORPUSCULAR HEMOGLOBIN 36.9 pg (27.0-33.4); MEAN CORPUSCULAR HGB CONC 35.2 g/dL (32.0-36.0); RED BLOOD COUNT 2.42 10^6/uL (4.35-5.55); RED CELL DISTRIBUTION WIDTH 19.2 % (11.5-14.0); WHITE BLOOD COUNT 7.1 10^3/uL (4.0-10.5)
[2018-05-19 00:38] LABS: MEAN CORPUSCULAR VOLUME 105 fl (80-97)
[2018-05-19 00:39] LABS: PLATELET COUNT 67 10^3/uL (150-450)
[2018-05-19] MEDS: SPIRONOLACTONE 25 MG TABLET PO SCH ×3 (05:45→21:11)
[2018-05-19 07:23] LABS: ABSOLUTE BASOPHILS # (AUTO) 0.1 10^3/uL (0.0-0.2); ABSOLUTE EOSINOPHILS # (AUTO) 1.7 10^3/uL (0.0-0.6); ABSOLUTE LYMPHOCYTES (AUTO) 1.2 10^3/uL (0.5-4.7); ABSOLUTE MONOCYTES (AUTO) 0.7 10^3/uL (0.1-1.4); ABSOLUTE NEUT (AUTO) 3.8 10^3/uL (1.7-8.2); BASOPHILS % (AUTO) 1.2 % (0-2); EOSINOPHILS % (AUTO) 22.4 % (0-6); HEMATOCRIT 23.1 % (37.9-51.0); HEMOGLOBIN 8.3 g/dL (13.5-17.0); LYMPHOCYTES % (AUTO) 16.3 % (13-45); MEAN CORPUSCULAR HEMOGLOBIN 38.1 pg (27.0-33.4); MEAN CORPUSCULAR HGB CONC 35.8 g/dL (32.0-36.0); MEAN CORPUSCULAR VOLUME 107 fl (80-97); MONOCYTES % (AUTO) 8.8 % (3-13); RED BLOOD COUNT 2.16 10^6/uL (4.35-5.55); RED CELL DISTRIBUTION WIDTH 19.7 % (11.5-14.0); SEGMENTED NEUTROPHILS % (AUTO) 51.3 % (42-78); TOTAL CELLS COUNTED % (AUTO) 100 %; WHITE BLOOD COUNT 7.5 10^3/uL (4.0-10.5)
[2018-05-19 07:44] LABS: ALANINE AMINOTRANSFERASE 23 U/L (21-72); ALBUMIN 1.8 g/dL (3.5-5.0); ALKALINE PHOSPHATASE 108 U/L (38-126); ANION GAP 5 (5-19); ASPARTATE AMINO TRANSFERASE 60 U/L (17-59); BILIRUBIN,DIRECT 2.7 mg/dL (0.0-0.4); BILIRUBIN,TOTAL 5.6 mg/dL (0.2-1.3); BLOOD UREA NITROGEN 7 mg/dL (7-20); CALCIUM 7.2 mg/dL (8.4-10.2); CARBON DIOXIDE 23 mmol/L (22-30); CHLORIDE 108 mmol/L (98-107); GLUCOSE 72 mg/dL (75-110); POTASSIUM 3.6 mmol/L (3.6-5.0); SODIUM 136.2 mmol/L (137-145); TOTAL PROTEIN 5.9 g/dL (6.3-8.2)
[2018-05-19 08:44] LABS: PLATELET COUNT 56 10^3/uL (150-450)
[2018-05-19] MEDS: IPRATROPIUM/ALBUTEROL 0.5-2.5 MG/3 ML AMPUL NEB SCH ×2 (09:09→20:36)
[2018-05-19] MEDS ORDERED: PROPOFOL INJ 200 MG/20 ML VIAL IV ONE (10:35)
--- NOTE | 2018-05-19 11:08 | Operative Report ---
Nonrecallable Operative Report DATE OF SURGERY: 05/19/18 PREOPERATIVE DIAGNOSIS: anemia; esopahgeal varices; alcoholic liver cirrhosis POSTOPERATIVE DIAGNOSIS: same, gastric varices OPERATION: EGD to third portion of duodenum SURGEON: LISA WILLOUGHBY ANESTHESIA: LMAC TISSUE REMOVED OR ALTERED: n/a COMPLICATIONS: none ESTIMATED BLOOD LOSS: n/a INTRAOPERATIVE FINDINGS: entire gastric surface is carpeted with varices, some spontaneously bleeding as it was noted during the procedure PROCEDURE: see dictation
--- NOTE | 2018-05-19 11:10 | Progress Note ---
Provider Note Provider Note: EGD performed. large amount of gastric varices seen, some bleeding spontaneously (see pictures). Recomment to transfer patient to facility where enterprise project manager and or IR with TIPS capabilities are available. I will sign off.
[2018-05-19] MEDS ORDERED: NORMAL SALINE 250 ML IV PRN ×2 (11:12→13:14)
--- NOTE | 2018-05-19 11:28 | OPERATIVE REPORT E ---
Operative Report NAME: JEROME ALVAREZ : 1960 AGE: 58Y DATE OF SURGERY: 05/19/2018 ROOM: 305 PREOPERATIVE DIAGNOSIS: 1. ANEMIA. 2. CIRRHOSIS. 3. HISTORY OF ESOPHAGEAL AND GASTRIC VARICES. 4. ALCOHOL INDUCED LIVER CIRRHOSIS. POSTOPERATIVE DIAGNOSIS: 1. ANEMIA. 2. CIRRHOSIS. 3. HISTORY OF ESOPHAGEAL AND GASTRIC VARICES. 4. ALCOHOL INDUCED LIVER CIRRHOSIS. OPERATION: Esophagogastroduodenoscopy. SURGEON: LISA WILLOUGHBY M.D. ANESTHESIA: MAC provided by anesthesiologist via propofol. COMPLICATION: None. FLUIDS: 100 mL. INDICATION AND FINDINGS: This is a 58-year-old male with a history of alcohol-induced liver cirrhosis and esophageal varices admitted because of weakness. Found to have a low hemoglobin and hematocrit on admission about 8.2 and 23.7. I was consulted because the patient's hemoglobin and hematocrit dropped to 6.9 and 19.9 on May 18 an was requested to perform an upper endoscopy. Procedure risks, benefits, and complications were explained to the patient. He understands and decides to proceed. PROCEDURE: It was done in the Operating Room. The patient was placed in the lateral decubitus. MAC anesthesia provided by anesthesiologist via propofol. The gastroscope was inserted through the mouth piece into the patient's mouth. Pharynx, esophagus, stomach, and duodenum. Preparation was good. No masses, polyps, fissures, indentations, mucosal changes were noted. Multiple gastric varices were seen. One of those started bleeding spontaneously as it was barely touched by the scope. The instrument was then retroflexed. No gastroesophageal or fundic pathology was identified except for the presence of multiple gastric varices. The instrument was then slowly withdrawn from the esophagus. No pathology was seen within the esophagus. The patient tolerated the procedure well. The instrument was then removed from the patient's mouth. The patient tolerated the procedure well. Transferred to recovery room in satisfactory condition. DICTATING PHYSICIAN: LISA WILLOUGHBY M.D. [id number] PHY#: [id number] ID: [id number] JOB#: [id number] ACCT: [id number] cc:LISA WILLOUGHBY M.D. > [facility]AFFEE HOSPITALJudy
[2018-05-19] MEDS: LACTULOSE SYRUP 20 GM/30 ML UDCUP PO SCH ×2 (12:51→21:09)
[2018-05-19] MEDS: DOCUSATE SODIUM 100 MG CAPSULE PO SCH ×2 (12:51→19:49)
[2018-05-19] MEDS: FOLIC ACID 1 MG TABLET PO SCH (12:57)
[2018-05-19] MEDS: CARVEDILOL 6.25 MG TABLET PO SCH ×2 (12:57→21:11)
[2018-05-19] MEDS: VITAMIN A 10,000 UNIT CAPSULE PO SCH (12:58)
[2018-05-19] MEDS: CEFTRIAXONE 1 GM/D5W RTU 1 GM/50 ML RTUPB IV SCH (13:32)
[2018-05-19] MEDS: NICOTINE 14 MG/24 HR PATCH.TD24 TD SCH (13:33)
[2018-05-19] MEDS: FUROSEMIDE INJ/PF 40 MG/4 ML SDV IV SCH ×2 (13:33→21:10)
[2018-05-19] MEDS: POTASSIUM CHLORIDE 10 MEQ CAPSULE.ER PO SCH (13:33)
[2018-05-19] MEDS: PANTOPRAZOLE SODIUM 40 MG VIAL IV SCH ×2 (13:34→21:10)
[2018-05-19] MEDS: ALBUTEROL SULFATE HFA (90 MCG/PUFF) 200 PUFF/8.5 GM MDI IH PRN (13:35)
[2018-05-19] MEDS: ASCORBIC ACID 500 MG TABLET PO SCH ×2 (13:35→19:49)
[2018-05-19 14:16] LABS: HEMATOCRIT 27.3 % (37.9-51.0); HEMOGLOBIN 9.3 g/dL (13.5-17.0); MEAN CORPUSCULAR HEMOGLOBIN 36.9 pg (27.0-33.4); MEAN CORPUSCULAR HGB CONC 34.1 g/dL (32.0-36.0); MEAN CORPUSCULAR VOLUME 108 fl (80-97); RED BLOOD COUNT 2.52 10^6/uL (4.35-5.55); WHITE BLOOD COUNT 7.1 10^3/uL (4.0-10.5)
[2018-05-19 14:21] LABS: INTERNATIONAL RATION (INR) 1.76; PROTHROMBIN TIME 21.4 SEC (11.4-15.4)
[2018-05-19 14:40] LABS: PLATELET COUNT 70 10^3/uL (150-450)
--- NOTE | 2018-05-19 14:52 | PDOC TRANSFER SUMMARY ---
General Admission Date/PCP: 05/17/18 03:08 Transfer Date: 05/19/18 Accepting Facility: [facility] Resuscitation Status: Full Code - Transfer Diagnosis (1) Anasarca Is this a current diagnosis for this admission?: Yes (2) Ascites Is this a current diagnosis for this admission?: Yes (3) Acute on chronic anemia Is this a current diagnosis for this admission?: Yes (4) Coagulopathy Is this a current diagnosis for this admission?: Yes (5) End stage liver disease Is this a current diagnosis for this admission?: Yes (6) Lactic acidosis Is this a current diagnosis for this admission?: Yes (7) Hypokalemia Is this a current diagnosis for this admission?: Yes (8) Thrombocytopenia Is this a current diagnosis for this admission?: Yes - Transfer Medications Home Medications: Albuterol Sulfate [Proair Hfa Inhalation Aerosol 8.5 gm Mdi] 1 puff IH Q4HP PRN 05/17/18 Carvedilol [Coreg 3.125 mg Tablet] 3.125 mg PO Q12 05/17/18 Cyanocobalamin (Vitamin B-12) [Vitamin B-12 100 mcg Tablet] 100 mg PO DAILY 05/17/18 Ferrous Sulfate 324 mg PO BID 05/17/18 Folic Acid [Folvite 1 mg Tablet] 1 mg PO DAILY 05/17/18 Furosemide [Lasix 40 mg Tablet] 40 mg PO DAILY 05/17/18 Multivit with Minerals/Lutein [Vitrum Senior Tablet] 1 each PO DAILY 05/17/18 Ranitidine HCl [Zantac 150 mg Tablet] 150 mg PO BID 05/17/18 Spironolactone [Aldactone 25 mg Tablet] 25 mg PO BID 05/17/18 Tamsulosin HCl [Flomax 0.4 mg Cap.sr] 0.4 mg PO QPM 05/17/18 Transfer Medications: Current Medications Al Hydrox/Mg Hydrox/Simethicone (Maalox Plus Susp 30 Udcup) 30 ml PO Q6HP PRN PRN Reason: HEARTBURN Stop: 06/16/18 02:45 Albuterol (Proair Hfa Inhalation Aerosol 8.5 Gm Mdi) 1 puff IH Q4HP PRN PRN Reason: SHORTNESS OF BREATH Stop: 06/17/18 15:42 Last Admin: 05/19/18 13:35 Dose: 1 puff Documented by: Albuterol/Ipratropium (Duoneb 3 Ml Ampul) 3 ml NEB [id number] PRN PRN Reason: SHORTNESS OF BREATH Stop: 06/16/18 02:45 Albuterol/Ipratropium (Duoneb 3 Ml Ampul) 3 ml NEB RTQ12 CHRISTINE Stop: 06/16/18 07:59 Last Admin: 05/19/18 09:09 Dose: 3 ml Documented by: Ascorbic Acid (Vitamin C 500 Mg Tablet) 1,000 mg PO BID CHRISTINE Stop: 06/16/18 09:59 Last Admin: 05/19/18 13:35 Dose: 1,000 mg Documented by: Carvedilol (Coreg 6.25 Mg Tablet) 6.25 mg PO Q12 CHRISTINE Stop: 06/17/18 12:29 Last Admin: 05/19/18 12:57 Dose: Not Given Documented by: Dextrose (Dextrose Inj 50% Syringe (25 Gm/50 Ml)) 12.5 gm IV PRN PRN; Protocol PRN Reason: FOR BG 50-69 IN ALERT PATIENT Stop: 06/16/18 03:06 Dextrose (Dextrose Inj 50% Syringe (25 Gm/50 Ml)) 25 gm IV PRN PRN; Protocol PRN Reason: PER PROTOCOL Stop: 06/16/18 03:06 Docusate Sodium (Colace 100 Mg Capsule) 100 mg PO BID [facility] Stop: 06/16/18 09:59 Last Admin: 05/19/18 12:51 Dose: Not Given Documented by: Folic Acid (Folvite 1 Mg Tablet) 1 mg PO DAILY [facility] Stop: 06/16/18 09:59 Last Admin: 05/19/18 12:57 Dose: Not Given Documented by: Furosemide (Lasix Inj/Pf 40 Mg/4 Ml Sdv) 20 mg IV Q12 CHRISTINE Stop: 06/16/18 21:59 Last Admin: 05/19/18 13:33 Dose: 20 mg Documented by: Glucagon (Glucagen Inj 1 Mg Vial) 1 mg IM PRN PRN; Protocol PRN Reason: Evaluate for BG < 70 Stop: 06/16/18 03:06 Glucagon (Glucagen Inj 1 Mg Vial) 1 mg SUBCUT PRN PRN; Protocol PRN Reason: Evaluate for BG < 70 Stop: 06/17/18 19:53 Glucose (Glutose 40% Gel 15 Gm Tube) 30 gm PO PRN PRN; Protocol PRN Reason: FOR BG < 50 IN ALERT PATIENT Stop: 06/16/18 03:06 Glucose (Glutose 40% Gel 15 Gm Tube) 15 gm PO PRN PRN; Protocol PRN Reason: For BG 50-69 in Alert Patient Stop: 06/17/18 19:53 Thiamine HCl 100 mg/ Folic (Acid 1 mg/ Sodium Chloride) 251.2 mls @ 502.4 mls/hr IV QHS [facility] Stop: 06/16/18 21:59 Last Infusion: 05/18/18 22:50 Dose: Infused Documented by: Ceftriaxone Sodium/Dextrose (Rocephin Rtu 1 Gm/D5w 50 Ml Premix) 1 gm in 50 mls @ 100 mls/hr IV DAILY [facility] Stop: 05/25/18 15:59 Last Admin: 05/19/18 13:32 Dose: 100 mls/hr, 100 mls/hr Documented by: Sodium Chloride (Nacl 0.9% 250 Ml Iv Soln) 250 mls @ 30 mls/hr IV .DURING TRANSFUSION PRN PRN Reason: THIS MED IS NOT "PRN" Stop: 05/19/18 15:52 Sodium Chloride (Nacl 0.9% 250 Ml Iv Soln) 250 mls @ 50 mls/hr IV CONTINUOUS PRN PRN Reason: AFTER EACH UNIT Stop: 05/19/18 15:52 Sodium Chloride (Nacl 0.9% 250 Ml Iv Soln) 250 mls @ 0 mls/hr IV CONTINUOUS PRN PRN Reason: AFTER EACH UNIT Stop: 05/20/18 13:13 Influenza Virus Vaccine Quadrival (Fluarix Adlt Quad Vac 0.5 Ml Syr) 0.5 ml IM .DISCHARGE PRN PRN Reason: THIS MED IS NOT "PRN" Stop: 06/16/18 05:52 Lactulose (Cephulac Syrup 20 Gm/30 Ml Udcup) 20 gm PO Q12 [facility] Stop: 06/16/18 09:59 Last Admin: 05/19/18 12:51 Dose: Not Given Documented by: Magnesium Hydroxide (Milk Of Magnesia 30 Ml Udcup) 30 ml PO HSP PRN PRN Reason: FOR CONSTIPATION Stop: 06/16/18 02:45 Nicotine (Nicoderm 14 Mg/24 Hr Transdermal Patch) 1 each TD DAILY [facility] Stop: 06/17/18 09:59 Last Admin: 05/19/18 13:33 Dose: 1 each Documented by: Pantoprazole Sodium (Protonix Iv Inj 40 Mg Vial) 40 mg IV Q12 CH[facility]STINE Stop: 05/21/18 15:29 Last Admin: 05/19/18 13:34 Dose: 40 mg Documented by: Potassium Chloride (Klor-Con 10 Meq Capsule Er) 40 meq PO DAILY [facility]INE Stop: 06/17/18 09:59 Last Admin: 05/19/18 13:33 Dose: 40 meq Documented by: Spironolactone (Aldactone 25 Mg Tablet) 12.5 mg PO Q8 [facility]INE Stop: 06/16/18 21:59 Last Admin: 05/19/18 13:37 Dose: 12.5 mg Documented by: Vitamin A (Vitamin A 10,000 Unit Capsule) 10,000 unit PO DAILY [facility]INE Stop: 06/16/18 09:59 Last Admin: 05/19/18 12:58 Dose: Not Given Documented by: - Allergies Allergies/Adverse Reactions: peanut Allergy (Verified 04/02/18 12:12) Penicillins Allergy (Verified 04/02/18 12:12) Sulfa (Sulfonamide Antibiotics) Allergy (Verified 04/02/18 12:12) Hospital Course Hospital Course: This is a 58 year old male with a past medical history of alcohol dependence, end stage liver disease and tobacco dependence who presented with increasing abdominal distention, pedal edema and dark stools. In the emergency room he is found to be profoundly anemic, coagulopathic, thrombocytopenic with generalized anasarca. His hemoglobin dropped from 8.2 to 6.9. He did have episodes of tarry stool on 05/18. FOBT was positive. Surgery was consulted as there is no GI services available. He is continued on IV Protonix. His had 1 u of pRBC and a platelet transfusion as well. He is awaiting FFP transfusion. He was also given vitamin K for his INR of 1.7. EGD was done today. He will be started on a somatostatin drip. Discussed results with surgicalist who noted extensive gastric varices with some having active/spontaneous bleeding. Unable to do intervention on the varices. Surgicalist recommend tertiary transfer for intervention of bleeding varices and possible TIPS. Patient is not a liver transplant candidate. He continues to drink alcohol but has cut down on it. Discussed with Dr. Dozier at [facility] who has accepted the transfer. Physical Exam Vital Signs: Temp Pulse Resp BP Pulse Ox 97.7 F 87 16 113/52 L 99 05/19/18 13:00 05/19/18 13:00 05/19/18 13:00 05/19/18 13:00 05/19/18 13:00 Intake & Output 05/18/18 05/19/18 05/20/18 06:59 06:59 06:59 Intake Total 1078.2 1544.2 100 Output Total 950 1775 0 Balance 128.2 -230.8 100 Weight 203 lb 0.732 oz 203 lb 7.787 oz General appearance: PRESENT: no acute distress, well-developed, well-nourished Head exam: PRESENT: atraumatic, normocephalic Eye exam: PRESENT: conjunctiva pale, EOMI, PERRLA. ABSENT: scleral icterus Ear exam: PRESENT: normal external ear exam Neck exam: ABSENT: carotid bruit, JVD, lymphadenopathy, thyromegaly Respiratory exam: PRESENT: clear to auscultation michelle. ABSENT: rales, rhonchi, wheezes Cardiovascular exam: PRESENT: RRR. ABSENT: diastolic murmur, rubs, systolic murmur Pulses: PRESENT: normal dorsalis pedis pul GI/Abdominal exam: PRESENT: distended, normal bowel sounds, rigid. ABSENT: guarding, rebound, soft, tenderness Rectal exam: PRESENT: deferred Extremities exam: PRESENT: +2 edema Neurological exam: PRESENT: alert, awake, oriented to person, oriented to place, oriented to time, oriented to situation, CN II-XII grossly intact. ABSENT: motor sensory deficit Results Laboratory Results: 05/19/18 06:57 05/18/18 05/18/18 05/18/18 16:00 16:00 16:00 WBC 6.3 RBC 1.84 L Hgb 6.9 L Hct 19.9 L MCV 109 H MCH 37.4 H MCHC 34.4 RDW 19.4 H Plt Count 60 L Seg Neutrophils % 59.3 Lymphocytes % 15.3 Monocytes % 10.3 Eosinophils % 13.9 H Basophils % 1.2 Absolute Neutrophils 3.7 Absolute Lymphocytes 1.0 Absolute Monocytes 0.6 Absolute Eosinophils 0.9 H Absolute Basophils 0.1 Sodium Potassium 3.9 Chloride Carbon Dioxide Anion Gap BUN Creatinine Est GFR ( Amer) Est GFR (Non-Af Amer) Glucose Lactic Acid 1.8 Calcium Total Bilirubin AST ALT Alkaline Phosphatase Total Protein Albumin Blood Type Antibody Screen 05/18/18 05/18/18 05/19/18 16:00 23:35 06:57 WBC 7.1 7.5 RBC 2.42 L 2.16 L Hgb 8.9 L 8.3 L Hct 25.4 L 23.1 L MCV 105 H D 107 H MCH 36.9 H 38.1 H MCHC 35.2 35.8 RDW 19.2 H 19.7 H Plt Count 67 L 56 L Seg Neutrophils % 51.3 Lymphocytes % 16.3 Monocytes % 8.8 Eosinophils % 22.4 H Basophils % 1.2 Absolute Neutrophils 3.8 Absolute Lymphocytes 1.2 Absolute Monocytes 0.7 Absolute Eosinophils 1.7 H Absolute Basophils 0.1 Sodium Potassium Chloride Carbon Dioxide Anion Gap BUN Creatinine Est GFR ( Amer) Est GFR (Non-Af Amer) Glucose Lactic Acid Calcium Total Bilirubin AST ALT Alkaline Phosphatase Total Protein Albumin Blood Type A NEGATIVE Antibody Screen NEGATIVE 05/19/18 06:57 WBC RBC Hgb Hct MCV MCH MCHC RDW Plt Count Seg Neutrophils % Lymphocytes % Monocytes % Eosinophils % Basophils % Absolute Neutrophils Absolute Lymphocytes Absolute Monocytes Absolute Eosinophils Absolute Basophils Sodium 136.2 L Potassium 3.6 Chloride 108 H Carbon Dioxide 23 Anion Gap 5 BUN 7 Creatinine 0.59 Est GFR ( Amer) > 60 Est GFR (Non-Af Amer) > 60 Glucose 72 L Lactic Acid Calcium 7.2 L Total Bilirubin 5.6 H AST 60 H ALT 23 Alkaline Phosphatase 108 Total Protein 5.9 L Albumin 1.8 L Blood Type Antibody Screen 05/17/18 05/17/18 05/17/18 01:08 01:08 01:08 Creatine Kinase 275 H CK-MB (CK-2) 3.47 Troponin I 0.018 NT-Pro-B Natriuret Pep 289 Impressions: Chest X-Ray 05/17/18 01:33 IMPRESSION: No acute cardiopulmonary abnormality copyright 2011 [employer]- All Rights Reserved
[2018-05-19 20:44] VITALS: BP 116/48
[2018-05-19] MEDS: THIAMINE HCL 100 MG, FOLIC ACID 1 MG in NORMAL SALINE 250 ML IV SCH (21:09)
[2018-05-20 15:37] LABS: HEPATITIS A AB IGM Negative (Negative); HEPATITIS B CORE AB IGM Negative (Negative); HEPATITS B SURFACE ANTIGEN Negative (Negative)
[2018-05-21 07:06] LABS: HEPATITIS C VIRUS ANTIBODY 0.2 s/co ratio (0.0-0.9)
== END 2018-05-19 21:20 | disposition short-term general hospital (02) | DRG 433 ==
LOC: ER 00:27 → EH 03:08 → 3N 04:40
PROVIDERS: ADMIT Internal Medicine; ATTEND Internal Medicine
PROC: 3E0F73Z Introduction of Anti-inflammatory into Respiratory Tract, Via Natural or Artificial Opening (ICD-10-PCS; 2018-05-17)
PROC: 30233N1 Transfusion of Nonautologous Red Blood Cells into Peripheral Vein, Percutaneous Approach (ICD-10-PCS; 2018-05-18)
PROC: 30233R1 Transfusion of Nonautologous Platelets into Peripheral Vein, Percutaneous Approach (ICD-10-PCS; 2018-05-19)
PROC: 30233L1 Transfusion of Nonautologous Fresh Plasma into Peripheral Vein, Percutaneous Approach (ICD-10-PCS; 2018-05-19)
PROC: 0DJ08ZZ Inspection of Upper Intestinal Tract, Via Natural or Artificial Opening Endoscopic (ICD-10-PCS; principal; 2018-05-19 09:30)
DX: K70.31 Alcoholic cirrhosis of liver with ascites (principal); E87.2 Acidosis; F10.20 Alcohol dependence, uncomplicated; K70.40 Alcoholic hepatic failure without coma; E87.6 Hypokalemia; D69.6 Thrombocytopenia, unspecified; I11.0 Hypertensive heart disease with heart failure; E78.5 Hyperlipidemia, unspecified; D64.9 Anemia, unspecified; F32.9 Major depressive disorder, single episode, unspecified; F17.210 Nicotine dependence, cigarettes, uncomplicated; R59.1 Generalized enlarged lymph nodes; Z60.2 Problems related to living alone; Z79.899 Other long term (current) drug therapy; Z85.9 Personal history of malignant neoplasm, unspecified; Z88.0 Allergy status to penicillin; Z88.2 Allergy status to sulfonamides; Z91.010 Allergy to peanuts; Z82.61 Family history of arthritis; Z82.49 Family history of ischemic heart disease and other diseases of the circulatory system
CPT/HCPCS: 36415; 36430; 43239; 71045; 731; 80048; 80053; 80074; 81001; 82140; 82272; 82550; 82553; 82962; 83605; 83735; 83880; 84100; 84132; 84484; 85025; 85027; 85610; 85730; 86850; 86900; 86901; 86920; 87493; 93005; 93010; 94640; 99285; J0696; J1940; J2704; J3411; J3430; J3480; J3490; J7050; J7620; P9016; P9017; P9035; S0164

== ENCOUNTER 2018-06-03 11:32 | Inpatient (IN) | payer MEDICARE, MEDICAID ==
[2018-06-03] MEDS ORDERED: LORAZEPAM INJ 2 MG/1 ML VIAL IM PRN (12:21)
[2018-06-03 13:36] LABS: ABSOLUTE EOSINOPHILS # (AUTO) 0.5 10^3/uL (0.0-0.6); ABSOLUTE MONOCYTES (AUTO) 0.7 10^3/uL (0.1-1.4); ABSOLUTE NEUT (AUTO) 4.1 10^3/uL (1.7-8.2); BASOPHILS % (AUTO) 0.6 % (0-2); HEMOGLOBIN 9.7 g/dL (13.5-17.0); MEAN CORPUSCULAR HGB CONC 35.1 g/dL (32.0-36.0); WHITE BLOOD COUNT 6.4 10^3/uL (4.0-10.5)
[2018-06-03 13:50] LABS: PROTHROMBIN TIME 20.8 SEC (11.4-15.4)
[2018-06-03 13:51] LABS: EOSINOPHILS % (AUTO) 7.6 % (0-6); HEMATOCRIT 27.5 % (37.9-51.0); LYMPHOCYTES % (AUTO) 15.7 % (13-45); MEAN CORPUSCULAR HEMOGLOBIN 35.9 pg (27.0-33.4); MONOCYTES % (AUTO) 10.9 % (3-13); PLATELET COUNT 128 10^3/uL (150-450); RED BLOOD COUNT 2.69 10^6/uL (4.35-5.55); RED CELL DISTRIBUTION WIDTH 18.1 % (11.5-14.0); SEGMENTED NEUTROPHILS % (AUTO) 65.2 % (42-78); TOTAL CELLS COUNTED % (AUTO) 100 %
[2018-06-03 13:52] LABS: MEAN CORPUSCULAR VOLUME 102 fl (80-97)
[2018-06-03 13:56] LABS: ALANINE AMINOTRANSFERASE 32 U/L (21-72); ALBUMIN 2.8 g/dL (3.5-5.0); ALKALINE PHOSPHATASE 131 U/L (38-126); ANION GAP 13 (5-19); ASPARTATE AMINO TRANSFERASE 64 U/L (17-59); BILIRUBIN,DIRECT 2.7 mg/dL (0.0-0.4); BILIRUBIN,TOTAL 5.9 mg/dL (0.2-1.3); BLOOD UREA NITROGEN 15 mg/dL (7-20); CALCIUM 8.7 mg/dL (8.4-10.2); CARBON DIOXIDE 23 mmol/L (22-30); CHLORIDE 98 mmol/L (98-107); GLUCOSE 88 mg/dL (75-110); POTASSIUM 3.4 mmol/L (3.6-5.0); SODIUM 134.1 mmol/L (137-145); TOTAL PROTEIN 7.8 g/dL (6.3-8.2)
[2018-06-03 13:57] LABS: ALCOHOL < 10 mg/dL (NONE DETECTED)
[2018-06-03 14:32] LABS: APPEARANCE,URINE CLEAR; BILIRUBIN,URINE NEGATIVE (NEGATIVE); COLOR,URINE YELLOW; GLUCOSE, URINE NEGATIVE (NEGATIVE); KETONES,URINE NEGATIVE (NEGATIVE); LEUKOCYTE ESTERASE,URINE TRACE (NEGATIVE); NITRITE,URINE NEGATIVE (NEGATIVE); PROTEIN,URINE NEGATIVE (NEGATIVE); URINE SPECIFIC GRAVITY 1.008
[2018-06-03 14:50] LABS: URINE AMPHETAMINES SCREEN NEGATIVE; URINE BARBITURATES SCREEN NEGATIVE; URINE BENZODIAZEPINES SCREEN NEGATIVE; URINE COCAINE SCREEN NEGATIVE; URINE MARIJUANA (THC) SCREEN NEGATIVE; URINE METHADONE SCREEN NEGATIVE; URINE PHENCYCLIDINE SCREEN NEGATIVE
[2018-06-03] MEDS ORDERED: LACTULOSE SYRUP 20 GM/30 ML UDCUP PR ONE (14:53)
[2018-06-03] MEDS ORDERED: ALBUTEROL SULFATE HFA (90 MCG/PUFF) 200 PUFF/8.5 GM MDI IH PRN (16:55)
--- NOTE | 2018-06-03 17:06 | ER Document Report ---
ED General - General Chief Complaint: Altered Mental Status Stated Complaint: ABNORMAL LABS Time Seen by Provider: 06/03/18 11:39 Primary Care Provider: TARUN PATEL MD [Primary Care Provider] - Follow up as needed TRAVEL OUTSIDE OF THE [place] IN LAST 30 DAYS: No - HPI Notes: Patient presents to the emergency department for evaluation. Evidently he was recently placed in a detention. He had been hospitalized for GI bleed and esophageal varices banding. He has a history of alcoholic cirrhosis. He has had increased altered mental status over the last several days. He had abnormal labs revealed a elevated ammonia so he was sent here for further evaluation. The patient is extremely altered. He denies any pain. He cannot tell me where he is. He cannot offer me any significant history. - Related Data Allergies/Adverse Reactions: peanut Allergy (Verified 04/02/18 12:12) Penicillins Allergy (Verified 04/02/18 12:12) Sulfa (Sulfonamide Antibiotics) Allergy (Verified 04/02/18 12:12) Past Medical History - General Information source: Patient, Outside Facility Records - [facility] - Social History Smoking Status: Former Smoker Chew tobacco use (# tins/day): No Frequency of alcohol use: Former heavy alcohol abuse Drug Abuse: None Family History: Arthritis, CAD, Hyperlipidemia, Hypertension, Malignancy Patient has suicidal ideation: No Patient has homicidal ideation: No - Past Medical History Cardiac Medical History: Reports: Hx Congestive Heart Failure, Hx Hypercholesterolemia, Hx Hypertension Renal/ Medical History: Denies: Hx Peritoneal Dialysis GI Medical History: Reports: Hx Cirrhosis Psychiatric Medical History: Reports: Hx Depression - Immunizations Immunizations up to date: Yes Hx Diphtheria, Pertussis, Tetanus Vaccination: Yes Review of Systems - Review of Systems -: Yes ROS unobtainable due to patient's medical condition Physical Exam - Vital signs Vitals: Temp Pulse Resp BP Pulse Ox 97.4 F 89 18 129/67 H 99 06/03/18 14:19 06/03/18 14:19 06/03/18 14:19 06/03/18 14:19 06/03/18 14:19 - Notes Notes: Pale, cachectic with ascites on abdomen. No apparent distress. Head is normocephalic and atraumatic. Scleral icterus is noted. Oral mucosa is moist, dentition is in extremely poor condition. Heart is regular rate and rhythm, lungs show mildly diminished breath sounds at the base but no rales or rhonchi are noted. Abdomen is distended with some ascites but soft. He is a large, easily reducible umbilical hernia. Extremities without cyanosis or clubbing. Patient is awake and alert but disoriented to person, place, time. Unable to follow instructions for the majority of the exam. Asterixis noted. Course - Re-evaluation Re-evalutation: 06/03/18 17:06 Patient presents to the emergency department for evaluation via EMS. He evidently has had increasingly altered mental status. Laboratory investigations revealed hepatic encephalopathy. He was given rectal lactulose. He was kept n.p.o. He remained stable throughout the course of his stay. Given the level of his altered mentation, I did feel that observation was appropriate. I spoke to GENIE Evans. It was unclear following her conversation whether or not the PA actually accepted the admittance. I was later contacted by Dr. Chowdhury who evidently will see the patient in consult for admission. - Vital Signs Vital signs: Temp Pulse Resp BP Pulse Ox 97.4 F 89 18 129/67 H 99 06/03/18 14:19 06/03/18 14:19 06/03/18 14:19 06/03/18 14:19 06/03/18 14:19 - Laboratory Result Diagrams: 06/03/18 13:20 06/03/18 13:20 Laboratory results interpreted by me: 06/03/18 06/03/18 06/03/18 13:20 13:20 13:20 RBC 2.69 L Hgb 9.7 L Hct 27.5 L MCV 102 H D MCH 35.9 H RDW 18.1 H Plt Count 128 L Eosinophils % 7.6 H PT 20.8 H Sodium 134.1 L Potassium 3.4 L Total Bilirubin 5.9 H Direct Bilirubin 2.7 H AST 64 H Alkaline Phosphatase 131 H Ammonia Albumin 2.8 L Urine Urobilinogen Ur Leukocyte Esterase 06/03/18 06/03/18 13:20 14:18 RBC Hgb Hct MCV MCH RDW Plt Count Eosinophils % PT Sodium Potassium Total Bilirubin Direct Bilirubin AST Alkaline Phosphatase Ammonia 109.7 H Albumin Urine Urobilinogen 2.0 H Ur Leukocyte Esterase TRACE H Discharge - Discharge Clinical Impression: Hepatic encephalopathy Condition: Stable Disposition: ADMITTED OBSERVATION Admitting Provider: Hospitalist - [place] [facility] Admitted: Medical Floor Referrals: TARUN PATEL MD [Primary Care Provider] - Follow up as needed
--- NOTE | 2018-06-03 17:10 | PDOC H&P ---
History of Present Illness Admission Date/PCP: TARUN PATEL MD Patient complains of: Patient brought into the emergency room with altered mental status History of Present Illness: JEROME ALVAREZ is a 58 year old male 58-year-old male intermediate patient with history of liver cirrhosis and ascites brought to the emergency room for altered mental status ammonia level is found to be 110 I try to look into the ER physician documentation is not even a sentence documented in the chart a call Dr. Portillo to see is any reason for not to document the ER physician notes she started screaming and yelling at me as if I am doing a mistake I try to talk to her in a professional way and she is very disrespectful and professional in her behavior towards me I told her I am going to reported to my hospitalist director Dr. curtis to look into this chart Dr. Collazo response is I can compliant to anybody she does not care. Past Medical History Cardiac Medical History: Reports: Congestive Heart Failure, Hyperlipidema, Hypertension GI Medical History: Reports: Cirrhosis Psychiatric Medical History: Reports: Depression Past Surgical History Past Surgical History: Reports: Other - Past surgical history is not available Social History Information Source: [facility] Records Smoking Status: Former Smoker Frequency of Alcohol Use: Heavy Drugs: None - Advance Directive Resuscitation Status: Full Code Family History Family History: Arthritis, CAD, Hyperlipidemia, Hypertension, Malignancy Parental Family History Reviewed: Yes Children Family History Reviewed: Yes Sibling(s) Family History Reviewed.: Yes Medication/Allergy Home Medications: Albuterol Sulfate [Proair Hfa Inhalation Aerosol 8.5 gm Mdi] 1 puff IH Q4HP PRN 05/17/18 Carvedilol [Coreg 3.125 mg Tablet] 3.125 mg PO Q12 05/17/18 Cyanocobalamin (Vitamin B-12) [Vitamin B-12 100 mcg Tablet] 100 mg PO DAILY 05/17/18 Ferrous Sulfate 324 mg PO BID 05/17/18 Folic Acid [Folvite 1 mg Tablet] 1 mg PO DAILY 05/17/18 Furosemide [Lasix 40 mg Tablet] 40 mg PO DAILY 05/17/18 Multivit with Minerals/Lutein [Vitrum Senior Tablet] 1 each PO DAILY 05/17/18 Ranitidine HCl [Zantac 150 mg Tablet] 150 mg PO BID 05/17/18 Spironolactone [Aldactone 25 mg Tablet] 25 mg PO BID 05/17/18 Tamsulosin HCl [Flomax 0.4 mg Cap.sr] 0.4 mg PO QPM 05/17/18 Allergies/Adverse Reactions: peanut Allergy (Verified 04/02/18 12:12) Penicillins Allergy (Verified 04/02/18 12:12) Sulfa (Sulfonamide Antibiotics) Allergy (Verified 04/02/18 12:12) Review of Systems ROS unobtainable: Due to mental status Physical Exam Vital Signs: Temp Pulse Resp BP Pulse Ox 97.4 F 89 18 129/67 H 99 06/03/18 14:19 06/03/18 14:19 06/03/18 14:19 06/03/18 14:19 06/03/18 14:19 Intake & Output 06/02/18 06/03/18 06/04/18 06:59 06:59 06:59 Output Total 102 Balance -102 Weight 67.5 kg General appearance: PRESENT: no acute distress, other - Sleeping comfortably in the bed Head exam: PRESENT: atraumatic Eye exam: PRESENT: PERRLA Mouth exam: PRESENT: dry mucosa Neck exam: ABSENT: carotid bruit, JVD, lymphadenopathy, thyromegaly Respiratory exam: PRESENT: decreased breath sounds GI/Abdominal exam: PRESENT: ascites, normal bowel sounds, soft, other - Umbilical hernia present. ABSENT: distended, guarding, mass, organolmegaly, rebound, tenderness Extremities exam: PRESENT: full ROM. ABSENT: calf tenderness, clubbing, pedal edema Neurological exam: PRESENT: alert, awake, oriented to person, oriented to place, oriented to time, oriented to situation, CN II-XII grossly intact. ABSENT: motor sensory deficit Psychiatric exam: PRESENT: appropriate affect, normal mood. ABSENT: homicidal ideation, suicidal ideation Results Laboratory Results: 06/03/18 13:20 06/03/18 13:20 06/03/18 06/03/18 06/03/18 13:20 13:20 13:20 WBC 6.4 RBC 2.69 L Hgb 9.7 L Hct 27.5 L MCV 102 H D MCH 35.9 H MCHC 35.1 RDW 18.1 H Plt Count 128 L Seg Neutrophils % 65.2 Lymphocytes % 15.7 Monocytes % 10.9 Eosinophils % 7.6 H Basophils % 0.6 Absolute Neutrophils 4.1 Absolute Lymphocytes 1.0 Absolute Monocytes 0.7 Absolute Eosinophils 0.5 Absolute Basophils 0.0 Sodium 134.1 L Potassium 3.4 L Chloride 98 Carbon Dioxide 23 Anion Gap 13 BUN 15 Creatinine 0.95 Est GFR ( Amer) > 60 Est GFR (Non-Af Amer) > 60 Glucose 88 Calcium 8.7 Total Bilirubin 5.9 H AST 64 H ALT 32 Alkaline Phosphatase 131 H Ammonia 109.7 H Total Protein 7.8 Albumin 2.8 L Urine Color Urine Appearance Urine pH Ur Specific [place] Urine Protein Urine Glucose (UA) Urine Ketones Urine Blood Urine Nitrite Ur Leukocyte Esterase Urine WBC (Auto) Urine RBC (Auto) 06/03/18 14:18 WBC RBC Hgb Hct MCV MCH MCHC RDW Plt Count Seg Neutrophils % Lymphocytes % Monocytes % Eosinophils % Basophils % Absolute Neutrophils Absolute Lymphocytes Absolute Monocytes Absolute Eosinophils Absolute Basophils Sodium Potassium Chloride Carbon Dioxide Anion Gap BUN Creatinine Est GFR ( Amer) Est GFR (Non-Af Amer) Glucose Calcium Total Bilirubin AST ALT Alkaline Phosphatase Ammonia Total Protein Albumin Urine Color YELLOW Urine Appearance CLEAR Urine pH 7.0 Ur Specific [place] 1.008 Urine Protein NEGATIVE Urine Glucose (UA) NEGATIVE Urine Ketones NEGATIVE Urine Blood NEGATIVE Urine Nitrite NEGATIVE Ur Leukocyte Esterase TRACE H Urine WBC (Auto) 4 Urine RBC (Auto) 2 Assessment & Plan - Diagnosis (1) Altered mental status Is this a current diagnosis for this admission?: Yes Plan: 06/03/2018-patient going to be admitted for altered mental status with high ammonia levels and he has history of liver cirrhosis. Altered mental status most likely secondary to liver cirrhosis causing hepatic encephalopathy. Patient is going to be in the telemetry. We are going to give a p.o. lactulose. To restart his home medications. To check his ammonia levels again tomorrow. Plan to do the CT abdominal pelvis to get a bit better picture of the ascites and because of the presence of umbilical hernia rule out any strangulation. Aspiration fall seizure precautions will be requested. In the ER patient was agitated he was given lorazepam and IV going to continue IV lorazepam every 6 as needed for agitation. Prophylaxis and DVT prophylaxis will be provided. pt will be admitted as inpatient. (2) Ascites Qualifiers: Ascites type: due to alcoholic cirrhosis Qualified Code(s): K70.31 - Alcoholic cirrhosis of liver with ascites Is this a current diagnosis for this admission?: No Plan: 06/03/2018-patient has history of liver cirrhosis with ascites we going to do the CT abdomen pelvis to see if the ascitic fluid is significant enough to do a tap. Patient is on p.o. Lasix at home/intermediate will continue diuretics but I am going to switch her to IV Lasix. (3) Hypokalemia Is this a current diagnosis for this admission?: Yes Plan: 06/03/2018-patient came in with potassium 3.4 hypokalemia be going to put him on a K rider 40 mEq IV daily. To recheck the labs tomorrow. (4) Macrocytic anemia Is this a current diagnosis for this admission?: No Plan: 06/03/2018-patient admission hemoglobin is 9.7 anemia of chronic disease most likely secondary to liver cirrhosis. plan is to check daily cbc (5) Coagulopathy Is this a current diagnosis for this admission?: No Plan: 06/03/2018-patient's INR is 1.7. Within therapeutic range. Be going to check INR and daily basis. - Time Time Spent: 30 to 50 Minutes Medications reviewed and adjusted accordingly: Yes Anticipated discharge: SNF, Other
[2018-06-03] MEDS ORDERED: ONDANSETRON HCL INJ/PF 4 MG/2 ML SDV IV PRN (17:16)
[2018-06-03] MEDS ORDERED: GLUCAGON,HUMAN RECOMB 1 MG INJ SUBCUT PRN (17:32)
[2018-06-03] MEDS ORDERED: DEXTROSE 50%-WATER 25 GM/50 ML DISP.SYRIN IV PRN ×2 (17:32)
[2018-06-03] MEDS ORDERED: DEXTROSE 40% GEL 15 GM TUBE PO PRN ×2 (17:32)
[2018-06-03] MEDS ORDERED: (PENDING PHARMACY ID) (Ferrous Sulfate [Ferrous Sulfate] 324 MG) PO SCH (18:00)
[2018-06-03] MEDS ORDERED: LACTULOSE SYRUP 20 GM/30 ML UDCUP PO SCH (18:00)
[2018-06-03] MEDS ORDERED: (PENDING PHARMACY ID) (Ranitidine Hcl [Zantac 150 Mg Tablet] 150 MG) PO SCH (18:00)
[2018-06-03] MEDS ORDERED: NORMAL SALINE 1000 ML 1,000 ML with POTASSIUM CHLORIDE 20 MEQ, MAGNESIUM SULFATE 8 MEQ,... IV SCH ×4 (18:00)
--- NOTE | 2018-06-03 18:20 | RADIOLOGY REPORT (SQ) ---
EXAM DESCRIPTION: CT HEAD WITHOUT COMPLETED DATE/TIME: 06/03/2018 5:46 pm REASON FOR STUDY: altered mental status COMPARISON: None. TECHNIQUE: Axial images acquired through the brain without intravenous contrast. Images reviewed wi th bone, brain and subdural windows. Images stored on PACS. All CT scanners at this facility use dose modulation, iterative reconstruction, and/or weight based d osing when appropriate to reduce radiation dose to as low as reasonably achievable (ALARA). [facility]: Dose Right [facility]: CareDose [facility]: Dose Right [facility]: Teradose 4D [facility]: Ascade RADIATION DOSE: CT Rad equipment meets quality standard of care and radiation dose reduction techniq ues were employed. CTDIvol: 55.2 mGy. DLP: 1167 mGy-cm. mGy. LIMITATIONS: None. FINDINGS: VENTRICLES: Normal size and contour. CEREBRUM: No masses. No hemorrhage. No midline shift. No evidence for acute infarction. Normal gra y/white matter differentiation. No areas of low density in the white matter. CEREBELLUM: No masses. No hemorrhage. No alteration of density. No evidence for acute infarction. EXTRAAXIAL SPACES: No fluid collections. No masses. ORBITS AND GLOBE: No intra- or extraconal masses. Normal contour of globe without masses. CALVARIUM: No fracture. PARANASAL SINUSES: Left maxillary and sphenoid sinus mucosal thickening. SOFT TISSUES: No mass or hematoma. OTHER: No other significant finding. IMPRESSION: No acute intracranial findings. Left maxillary and sphenoid sinusitis. EVIDENCE OF ACUTE STROKE: NO. COMMENT: Quality ID # [id number]: Final reports with documentation of one or more dose reduction techniques (e.g., Automated exposure control, adjustment of the mA and/or kV according to patient size, use of iterative reconstruction technique) TECHNICAL DOCUMENTATION: JOB ID: [id number] [place]-72 2010 [employer]- All Rights Reserved Reading location - IP/workstation name: [email or web address]
[2018-06-03 18:26] LABS: INTERNATIONAL RATION (INR) 1.75; PROTHROMBIN TIME 21.3 SEC (11.4-15.4)
--- NOTE | 2018-06-03 18:30 | RADIOLOGY REPORT (SQ) ---
EXAM DESCRIPTION: CHEST SINGLE VIEW COMPLETED DATE/TIME: 06/03/2018 5:45 pm REASON FOR STUDY: shortness of breath COMPARISON: 05/17/2018 TECHNIQUE: Frontal and lateral radiographic views of the chest acquired. NUMBER OF VIEWS: Two view. LIMITATIONS: None. FINDINGS: LUNGS AND PLEURA: No pneumothorax. No consolidation or pleural effusion. MEDIASTINUM AND HILAR STRUCTURES: Stable. HEART AND VASCULAR STRUCTURES: Stable. BONES: No acute findings. HARDWARE: None in the chest. OTHER: No other significant finding. IMPRESSION: NO ACUTE FINDINGS. TECHNICAL DOCUMENTATION: JOB ID: [id number] [place]-72 2010 [employer]- All Rights Reserved Reading location - IP/workstation name: [email or web address]
--- NOTE | 2018-06-03 20:03 | RADIOLOGY REPORT (SQ) ---
EXAM DESCRIPTION: CT ABDOMEN NO ORAL OR IV COMPLETED DATE/TIME: 06/03/2018 5:46 pm REASON FOR STUDY: ascites COMPARISON: None. TECHNIQUE: CT scan of the abdomen and pelvis performed without intravenous or oral contrast. Images reviewed with lung, soft tissue, and bone windows. Reconstructed coronal and sagittal MPR images revi ewed. All images stored on PACS. All CT scanners at this facility use dose modulation, iterative reconstruction, and/or weight based d osing when appropriate to reduce radiation dose to as low as reasonably achievable (ALARA). [facility]: Dose Right [facility]: CareDose [facility]: Dose Right [facility]: Teradose 4D [facility]: [email or web address] RADIATION DOSE: CT Rad equipment meets quality standard of care and radiation dose reduction techniq ues were employed. CTDIvol: 20.4 mGy. DLP: 1093 mGy-cm.mGy. LIMITATIONS: None. FINDINGS: LOWER CHEST: Minimal basilar subsegmental atelectasis. NON-CONTRASTED LIVER, SPLEEN, ADRENALS: Large amount of ascites. Numerous varices. Splenomegaly. C irrhotic appearance of the liver. PANCREAS: No masses.. GALLBLADDER: Numerous calcified stones. RIGHT KIDNEY AND URETER: No cysts identified. No solid masses. No calcified stones. No hydronephrosis or hydroureter. LEFT KIDNEY AND URETER: No cysts identified. No solid masses. No calcified stones. Mild-moderate hyd ronephrosis versus chronic UPJ obstruction. No hydroureter. AORTA AND RETROPERITONEUM: No aneurysm. No bulky adenopathy. BOWEL AND PERITONEAL CAVITY: No bowel dilatation. Large amount of free fluid. APPENDIX: Normal. PELVIS, BLADDER, AND ABDOMINAL WALL:Numerous varices in the periumbilical region. Large amount of fr ee fluid. Unremarkable bladder. BONES: No acute findings. OTHER: No other significant finding. IMPRESSION: Large amount of ascites. Findings consistent with cirrhosis and portal venous hypertens ion- numerous varices. TECHNICAL DOCUMENTATION: JOB ID: [id number] [place]-72 Quality ID # [id number]: Final reports with documentation of one or more dose reduction techniques (e.g., Au tomated exposure control, adjustment of the mA and/or kV according to patient size, use of iterative reconstruction technique) 2010 [employer]- All Rights Reserved Reading location - IP/workstation name: [email or web address]
[2018-06-03] MEDS: NORMAL SALINE 1000 ML 1,000 ML with POTASSIUM CHLORIDE 20 MEQ, MAGNESIUM SULFATE 8 MEQ,... IV SCH ×4 (20:55)
[2018-06-03] MEDS: THIAMINE HCL 100 MG TABLET PO SCH (22:36)
[2018-06-03] MEDS: SPIRONOLACTONE 25 MG TABLET PO SCH (22:36)
[2018-06-03] MEDS: TAMSULOSIN HCL 0.4 MG CAP.SR.24H PO SCH (22:36)
[2018-06-03] MEDS: FERROUS SULFATE 325 MG TABLET PO SCH (22:36)
[2018-06-03] MEDS: LACTULOSE SYRUP 20 GM/30 ML UDCUP PO SCH (22:36)
[2018-06-04] MEDS: LACTULOSE SYRUP 20 GM/30 ML UDCUP PO SCH ×5 (00:45→18:03)
[2018-06-04] MEDS: FUROSEMIDE INJ/PF 40 MG/4 ML SDV IV SCH ×3 (00:45→11:13)
[2018-06-04] MEDS: FAMOTIDINE 20 MG TABLET PO SCH ×4 (00:46→23:35)
[2018-06-04] MEDS: CARVEDILOL 3.125 MG TABLET PO SCH ×4 (00:46→23:34)
[2018-06-04] MEDS: RIFAXIMIN 550 MG TABLET PO SCH ×4 (00:47→23:35)
--- NOTE | 2018-06-04 01:30 | EKG REPORT ---
SEVERITY:- ABNORMAL ECG - SINUS RHYTHM PROLONGED QT INTERVAL : Confirmed by: Celeste Browning MD 04-Jun-2018 01:28:47
[2018-06-04] MEDS: LORAZEPAM INJ 2 MG/1 ML VIAL IV PRN ×2 (02:35→12:23)
[2018-06-04 06:22] LABS: CREATINE KINASE MB 2.33 ng/mL (<4.55)
[2018-06-04 06:32] LABS: ALANINE AMINOTRANSFERASE 33 U/L (21-72); ALBUMIN 2.6 g/dL (3.5-5.0); ALKALINE PHOSPHATASE 119 U/L (38-126); ANION GAP 11 (5-19); ASPARTATE AMINO TRANSFERASE 64 U/L (17-59); BILIRUBIN,DIRECT 2.9 mg/dL (0.0-0.4); BILIRUBIN,TOTAL 5.9 mg/dL (0.2-1.3); BLOOD UREA NITROGEN 14 mg/dL (7-20); CALCIUM 8.7 mg/dL (8.4-10.2); CARBON DIOXIDE 21 mmol/L (22-30); CHLORIDE 106 mmol/L (98-107); CREATINE KINASE 120 U/L (55-170); GLUCOSE 83 mg/dL (75-110); POTASSIUM 3.7 mmol/L (3.6-5.0); SODIUM 137.7 mmol/L (137-145); TOTAL PROTEIN 7.1 g/dL (6.3-8.2)
[2018-06-04 06:37] LABS: HEMATOCRIT 28.1 % (37.9-51.0); HEMOGLOBIN 9.7 g/dL (13.5-17.0); MEAN CORPUSCULAR HEMOGLOBIN 35.5 pg (27.0-33.4); MEAN CORPUSCULAR HGB CONC 34.5 g/dL (32.0-36.0); MEAN CORPUSCULAR VOLUME 103 fl (80-97); PLATELET COUNT 109 10^3/uL (150-450); RED BLOOD COUNT 2.73 10^6/uL (4.35-5.55); RED CELL DISTRIBUTION WIDTH 17.9 % (11.5-14.0); WHITE BLOOD COUNT 6.4 10^3/uL (4.0-10.5)
[2018-06-04] MEDS ORDERED: ENOXAPARIN SODIUM INJ 40 MG/0.4 ML DISP.SYRIN SUBCUT SCH ×2 (10:00)
[2018-06-04] MEDS ORDERED: MULTIVITAMIN TABLET PO SCH (10:00)
[2018-06-04] MEDS ORDERED: FUROSEMIDE 40 MG TABLET PO SCH (10:00)
[2018-06-04] MEDS ORDERED: LUTEIN PO SCH (10:00)
[2018-06-04] MEDS ORDERED: MULTIVIT WITH MINERALS PO SCH (10:00)
[2018-06-04] MEDS ORDERED: CYANOCOBALAMIN 100 MG PO SCH (10:00)
[2018-06-04] MEDS: SPIRONOLACTONE 25 MG TABLET PO SCH ×2 (11:06→18:03)
[2018-06-04] MEDS: FOLIC ACID 1 MG TABLET PO SCH (11:07)
[2018-06-04] MEDS: FERROUS SULFATE 325 MG TABLET PO SCH ×2 (11:07→18:03)
[2018-06-04] MEDS: CYANOCOBALAMIN (VITAMIN B-12) 1,000 MCG TABLET PO SCH (11:08)
[2018-06-04] MEDS: ENOXAPARIN SODIUM INJ 30 MG/0.3 ML DISP.SYRIN SUBCUT SCH (11:09)
[2018-06-04] MEDS: NICOTINE 14 MG/24 HR PATCH.TD24 TD SCH (11:14)
--- NOTE | 2018-06-04 16:04 | RADIOLOGY REPORT (SQ) ---
EXAM DESCRIPTION: U/S ABDOMEN LIMITED W/O DOP COMPLETED DATE/TIME: 06/04/2018 3:52 pm REASON FOR STUDY: ascites COMPARISON: 04/02/2018 TECHNIQUE: Dynamic and static grayscale images acquired of the abdomen and recorded on PACS. Warren vargas selected color Doppler and spectral images recorded. LIMITATIONS: None. FINDINGS: Limited abdominal ultrasound examination performed to evaluate for ascites. Mild volume a scites. Paracentesis was not performed. IMPRESSION: 1. Mild volume ascites in the abdomen. TECHNICAL DOCUMENTATION: JOB ID: [id number] [employer]- All Rights Reserved Reading location - IP/workstation name: [email or web address]
--- NOTE | 2018-06-04 16:41 | PDOC PROGRESS REPORT ---
Subjective Progress Note for:: 06/04/18 Subjective:: 06/04/2018-no acute events in the last 24 hours. Patient is afebrile. Still not taking any medications by mouth. amminia level went up to 124. I spoke to his daughter discussed the care plan she said he is requested to be a full code. Reason For Visit: HEPATIC ENCEPHALOPATHY Physical Exam Vital Signs: Temp Pulse Resp BP Pulse Ox 98.3 F 76 19 116/43 L 97 06/04/18 11:38 06/04/18 11:38 06/04/18 11:38 06/04/18 11:38 06/04/18 11:38 Intake & Output 06/03/18 06/04/18 06/05/18 06:59 06:59 06:59 Intake Total 76 946 Output Total 102 Balance -26 946 Weight 62.8 kg 62.8 kg General appearance: PRESENT: no acute distress Head exam: PRESENT: atraumatic Eye exam: PRESENT: PERRLA Neck exam: ABSENT: carotid bruit, JVD, lymphadenopathy, thyromegaly Respiratory exam: PRESENT: decreased breath sounds Cardiovascular exam: PRESENT: tachycardia GI/Abdominal exam: PRESENT: ascites, normal bowel sounds Extremities exam: PRESENT: full ROM. ABSENT: calf tenderness, clubbing, pedal edema Neurological exam: PRESENT: altered Results Laboratory Results: 06/04/18 05:39 06/04/18 05:39 06/04/18 06/04/18 06/04/18 05:39 05:39 05:39 WBC 6.4 RBC 2.73 L Hgb 9.7 L Hct 28.1 L MCV 103 H MCH 35.5 H MCHC 34.5 RDW 17.9 H Plt Count 109 L Sodium 137.7 Potassium 3.7 Chloride 106 Carbon Dioxide 21 L Anion Gap 11 BUN 14 Creatinine 0.93 Est GFR ( Amer) > 60 Est GFR (Non-Af Amer) > 60 Glucose 83 Calcium 8.7 Total Bilirubin 5.9 H AST 64 H ALT 33 Alkaline Phosphatase 119 Ammonia 124.8 H Total Protein 7.1 Albumin 2.6 L TSH 06/04/18 05:39 WBC RBC Hgb Hct MCV MCH MCHC RDW Plt Count Sodium Potassium Chloride Carbon Dioxide Anion Gap BUN Creatinine Est GFR ( Amer) Est GFR (Non-Af Amer) Glucose Calcium Total Bilirubin AST ALT Alkaline Phosphatase Ammonia Total Protein Albumin TSH 4.39 06/03/18 06/03/18 06/03/18 13:20 13:20 23:32 Creatine Kinase 128 125 CK-MB (CK-2) 3.58 NT-Pro-B Natriuret Pep 06/03/18 06/04/18 06/04/18 23:32 05:39 05:39 Creatine Kinase 120 CK-MB (CK-2) 2.48 2.33 NT-Pro-B Natriuret Pep 391 Impressions: Abdomen CT 06/03/18 00:00 IMPRESSION: Large amount of ascites. Findings consistent with cirrhosis and portal venous hypertension- numerous varices. Head CT 06/03/18 00:00 IMPRESSION: No acute intracranial findings. Left maxillary and sphenoid sinusitis. EVIDENCE OF ACUTE STROKE: NO. Chest X-Ray 06/03/18 17:19 IMPRESSION: NO ACUTE FINDINGS. Abdomen Ultrasound 06/04/18 00:00 IMPRESSION: 1. Mild volume ascites in the abdomen. Assessment & Plan - Diagnosis (1) Altered mental status Is this a current diagnosis for this admission?: Yes Plan: 06/03/2018-patient going to be admitted for altered mental status with high ammonia levels and he has history of liver cirrhosis. Altered mental status most likely secondary to liver cirrhosis causing hepatic encephalopathy. Patient is going to be in the telemetry. We are going to give a p.o. lactulose. To restart his home medications. To check his ammonia levels again tomorrow. Plan to do the CT abdominal pelvis to get a bit better picture of the ascites and because of the presence of umbilical hernia rule out any strangulation. Aspiration fall seizure precautions will be requested. In the ER patient was agitated he was given lorazepam and IV going to continue IV lorazepam every 6 as needed for agitation. Prophylaxis and DVT prophylaxis will be provided. pt will be admitted as inpatient. 06/04/2018-admitted for altered mental status ..ammonia level went up to 124. to repeat ammonia level and give soap lisandra enema to give diarrhea pt is not talking meds by mouth. (2) Ascites Qualifiers: Ascites type: due to alcoholic cirrhosis Qualified Code(s): K70.31 - Alcoholic cirrhosis of liver with ascites Is this a current diagnosis for this admission?: No Plan: 06/03/2018-patient has history of liver cirrhosis with ascites we going to do the CT abdomen pelvis to see if the ascitic fluid is significant enough to do a tap. Patient is on p.o. Lasix at home/custodial will continue diuretics but I am going to switch her to IV Lasix. 06/04/2018-ultrasound done today shows ascites is improved compared to the CT scan that was done yesterday. Plan is to continue the IV Lasix therapy. (3) Hypokalemia Is this a current diagnosis for this admission?: Yes Plan: 06/03/2018-patient came in with potassium 3.4 hypokalemia be going to put him on a K rider 40 mEq IV daily. To recheck the labs tomorrow. 06/04/2018 potassium level is 3.7 hypokalemia resolved he is getting potassium IV supplementation. (4) Macrocytic anemia Is this a current diagnosis for this admission?: No Plan: 06/03/2018-patient admission hemoglobin is 9.7 anemia of chronic disease most likely secondary to liver cirrhosis. plan is to check daily cbc 06/04/2018-patient's hemoglobin is 9.7 stable he has anemia of chronic disease most likely secondary to liver cirrhosis. (5) Coagulopathy Is this a current diagnosis for this admission?: No (6) Thrombocytopenia Is this a current diagnosis for this admission?: No Plan: 06/04/2018-patient platelet count is 109 today most likely secondary to liver cole sutton. - Time Time Spent with patient: Less than 15 minutes Medications reviewed and adjusted accordingly: Yes Anticipated discharge: SNF
[2018-06-04] MEDS: THIAMINE HCL 100 MG TABLET PO SCH (18:04)
[2018-06-04] MEDS: TAMSULOSIN HCL 0.4 MG CAP.SR.24H PO SCH (18:04)
[2018-06-04] MEDS: NORMAL SALINE 1000 ML 1,000 ML with POTASSIUM CHLORIDE 20 MEQ, MAGNESIUM SULFATE 8 MEQ,... IV SCH ×4 (18:07)
[2018-06-04] MEDS: NYSTATIN TOPICAL POWDER 15 GM TP SCH (18:08)
[2018-06-05] MEDS: FUROSEMIDE INJ/PF 40 MG/4 ML SDV IV SCH ×3 (00:09→21:13)
[2018-06-05] MEDS: CARVEDILOL 3.125 MG TABLET PO SCH ×3 (00:10→21:07)
[2018-06-05] MEDS: FAMOTIDINE 20 MG TABLET PO SCH ×3 (00:10→21:07)
[2018-06-05] MEDS: RIFAXIMIN 550 MG TABLET PO SCH ×3 (00:10→21:07)
[2018-06-05] MEDS: LACTULOSE SYRUP 20 GM/30 ML UDCUP PO SCH ×5 (00:11→23:18)
[2018-06-05] MEDS: LORAZEPAM INJ 2 MG/1 ML VIAL IV PRN (00:40)
[2018-06-05] MEDS ORDERED: NICOTINE 14 MG/24 HR PATCH.TD24 TD SCH (10:00)
[2018-06-05] MEDS: ENOXAPARIN SODIUM INJ 30 MG/0.3 ML DISP.SYRIN SUBCUT SCH (11:20)
[2018-06-05] MEDS: SPIRONOLACTONE 25 MG TABLET PO SCH ×2 (11:34→17:31)
[2018-06-05] MEDS: FOLIC ACID 1 MG TABLET PO SCH (11:34)
[2018-06-05] MEDS: CYANOCOBALAMIN (VITAMIN B-12) 1,000 MCG TABLET PO SCH (11:34)
[2018-06-05] MEDS: NICOTINE 14 MG/24 HR PATCH.TD24 TD SCH (11:34)
[2018-06-05] MEDS: FERROUS SULFATE 325 MG TABLET PO SCH ×2 (11:34→17:31)
[2018-06-05] MEDS: NYSTATIN TOPICAL POWDER 15 GM TP SCH ×2 (11:40→17:35)
[2018-06-05] MEDS: NORMAL SALINE 1000 ML 1,000 ML with POTASSIUM CHLORIDE 20 MEQ, MAGNESIUM SULFATE 8 MEQ,... IV SCH ×4 (17:31)
[2018-06-05] MEDS: TAMSULOSIN HCL 0.4 MG CAP.SR.24H PO SCH (17:31)
[2018-06-05] MEDS: THIAMINE HCL 100 MG TABLET PO SCH (17:31)
--- NOTE | 2018-06-05 17:34 | PDOC PROGRESS REPORT ---
Subjective Progress Note for:: 06/05/18 Subjective:: 06/04/2018-no acute events in the last 24 hours. Patient is afebrile. Still not taking any medications by mouth. amminia level went up to 124. I spoke to his daughter discussed the care plan she said he is requested to be a full code. 06/05/2018-patient is little bit more alert more awake compared to yesterday. Daughter is bedside. She said he recognized her able to talk to her little bit. Acute events in the last 24 hours. Patient is afebrile. Reason For Visit: HEPATIC ENCEPHALOPATHY Physical Exam Vital Signs: Temp Pulse Resp BP Pulse Ox 97.5 F 78 20 134/57 H 100 06/05/18 15:25 06/05/18 16:00 06/05/18 15:25 06/05/18 15:25 06/05/18 15:25 Intake & Output 06/04/18 06/05/18 06/06/18 06:59 06:59 06:59 Intake Total 76 946 1022 Output Total 102 Balance -26 946 1022 Weight 62.8 kg 61 kg General appearance: PRESENT: no acute distress, disheveled, thin Head exam: PRESENT: atraumatic Eye exam: PRESENT: PERRLA Mouth exam: PRESENT: moist, tongue midline Neck exam: ABSENT: carotid bruit, JVD, lymphadenopathy, thyromegaly Respiratory exam: PRESENT: decreased breath sounds Cardiovascular exam: PRESENT: tachycardia GI/Abdominal exam: PRESENT: ascites, normal bowel sounds, soft. ABSENT: distended, guarding, mass, organolmegaly, rebound, tenderness Extremities exam: PRESENT: full ROM. ABSENT: calf tenderness, clubbing, pedal edema Neurological exam: PRESENT: alert, awake, oriented to person, oriented to place, oriented to time, oriented to situation, CN II-XII grossly intact. ABSENT: motor sensory deficit Psychiatric exam: PRESENT: appropriate affect, normal mood. ABSENT: homicidal ideation, suicidal ideation Results Laboratory Results: 06/04/18 05:39 06/04/18 05:39 06/05/18 06:55 Ammonia 122.5 H 06/03/18 06/03/18 06/03/18 13:20 13:20 23:32 Creatine Kinase 128 125 CK-MB (CK-2) 3.58 NT-Pro-B Natriuret Pep 06/03/18 06/04/18 06/04/18 23:32 05:39 05:39 Creatine Kinase 120 CK-MB (CK-2) 2.48 2.33 NT-Pro-B Natriuret Pep 391 Impressions: Abdomen CT 06/03/18 00:00 IMPRESSION: Large amount of ascites. Findings consistent with cirrhosis and portal venous hypertension- numerous varices. Head CT 06/03/18 00:00 IMPRESSION: No acute intracranial findings. Left maxillary and sphenoid sinusitis. EVIDENCE OF ACUTE STROKE: NO. Chest X-Ray 06/03/18 17:19 IMPRESSION: NO ACUTE FINDINGS. Abdomen Ultrasound 06/04/18 00:00 IMPRESSION: 1. Mild volume ascites in the abdomen. Assessment & Plan - Diagnosis (1) Altered mental status Is this a current diagnosis for this admission?: Yes Plan: 06/03/2018-patient going to be admitted for altered mental status with high ammonia levels and he has history of liver cirrhosis. Altered mental status most likely secondary to liver cirrhosis causing hepatic encephalopathy. Patient is going to be in the telemetry. We are going to give a p.o. lactulose. To restart his home medications. To check his ammonia levels again tomorrow. Plan to do the CT abdominal pelvis to get a bit better picture of the ascites and because of the presence of umbilical hernia rule out any strangulation. Aspiration fall seizure precautions will be requested. In the ER patient was agitated he was given lorazepam and IV going to continue IV lorazepam every 6 as needed for agitation. Prophylaxis and DVT prophylaxis will be provided. pt will be admitted as inpatient. 06/04/2018-admitted for altered mental status ..ammonia level went up to 124. to repeat ammonia level and give soap lisandra enema to give diarrhea pt is not talking meds by mouth. 06/05/2018-patient was admitted with altered mental status most likely secondary to hepatic encephalopathy his ammonia level is 124 yesterday slightly improved to 122 today he is not taking oral lactulose as requested. He is more alert more awake today hopefully will continue take lactulose. I discussed the plan of care with patient's daughter she is happy with the care so far. (2) Ascites Qualifiers: Ascites type: due to alcoholic cirrhosis Qualified Code(s): K70.31 - Alcoholic cirrhosis of liver with ascites Is this a current diagnosis for this admission?: No Plan: 06/03/2018-patient has history of liver cirrhosis with ascites we going to do the CT abdomen pelvis to see if the ascitic fluid is significant enough to do a tap. Patient is on p.o. Lasix at home/[facility] will continue diuretics but I am going to switch her to IV Lasix. 06/04/2018-ultrasound done today shows ascites is improved compared to the CT scan that was done yesterday. Plan is to continue the IV Lasix therapy. 06/05/2018-the ascites much improved compared to admission findings. CT abdomen initially shows large amount of ascitic fluid follow-up ultrasound shows significant decrease in the ascitic fluid . Plan is to continue the IV Lasix. (3) Hypokalemia Is this a current diagnosis for this admission?: Yes Plan: 06/03/2018-patient came in with potassium 3.4 hypokalemia be going to put him on a K rider 40 mEq IV daily. To recheck the labs tomorrow. 06/04/2018 potassium level is 3.7 hypokalemia resolved he is getting potassium IV supplementation. 06/05/2018-latest potassium is 3.7 plan is to continue potassium supplementation. (4) Macrocytic anemia Is this a current diagnosis for this admission?: No Plan: 06/03/2018-patient admission hemoglobin is 9.7 anemia of chronic disease most likely secondary to liver cirrhosis. plan is to check daily cbc 06/04/2018-patient's hemoglobin is 9.7 stable he has anemia of chronic disease most likely secondary to liver cirrhosis. 06/05/2018-patient hemoglobin is 10.7 stable. Anemia of chronic disease most li eccilio secondary to chronic liver failure. (5) Coagulopathy Is this a current diagnosis for this admission?: No Plan: 06/03/2018-patient's INR is 1.7. Within therapeutic range. Be going to check INR and daily basis. 06/05/2018 patient's INR is 1.7 no evidence of any active bleeding. No petechiae are noticed on the skin. Plan is to check PT/INR tomorrow. (6) Thrombocytopenia Is this a current diagnosis for this admission?: No Plan: 06/04/2018-patient platelet count is 109 today most likely secondary to liver failure. 06/05/2018 latest platelet count is 109. Thrombocytopenia most likely secondary to chronic liver failure. - Time Time Spent with patient: 15-24 minutes Medications reviewed and adjusted accordingly: Yes Anticipated discharge: SNF
[2018-06-06] MEDS: LACTULOSE SYRUP 20 GM/30 ML UDCUP PO SCH ×3 (05:13→18:03)
[2018-06-06 08:28] LABS: INTERNATIONAL RATION (INR) 1.87; PROTHROMBIN TIME 22.5 SEC (11.4-15.4)
[2018-06-06 08:34] LABS: HEMATOCRIT 27.9 % (37.9-51.0); HEMOGLOBIN 9.8 g/dL (13.5-17.0); MEAN CORPUSCULAR HEMOGLOBIN 35.8 pg (27.0-33.4); MEAN CORPUSCULAR HGB CONC 35.1 g/dL (32.0-36.0); MEAN CORPUSCULAR VOLUME 102 fl (80-97); PLATELET COUNT 116 10^3/uL (150-450); RED BLOOD COUNT 2.74 10^6/uL (4.35-5.55); WHITE BLOOD COUNT 8.6 10^3/uL (4.0-10.5)
[2018-06-06 09:10] LABS: ABSOLUTE LYMPHOCYTES# (MANUAL) 1.5 10^3/uL (0.5-4.7); ABSOLUTE MONOCYTES # (MANUAL) 0.3 10^3/uL (0.1-1.4); ABSOLUTE NEUTROPHILS# (MANUAL) 5.8 10^3/uL (1.7-8.2); BASOPHILS % (MANUAL) 0 % (0-2); EOSINOPHILS % (MANUAL) 11 % (0-6); LYMPHOCYTES % (MANUAL) 17 % (13-45); MONOCYTES % (MANUAL) 3 % (3-13); SEGMENTED NEUTROPHILS % (MAN) 68 % (42-78); TOTAL CELLS COUNTED 100
[2018-06-06 09:11] LABS: PLATELET COMMENT ADEQUATE; RBC MORPHOLOGY COMMENT NORMO-CYTIC/CHROMIC
[2018-06-06 09:25] LABS: ALANINE AMINOTRANSFERASE 22 U/L (21-72); ALBUMIN 2.4 g/dL (3.5-5.0); ALKALINE PHOSPHATASE 136 U/L (38-126); ANION GAP 11 (5-19); ASPARTATE AMINO TRANSFERASE 55 U/L (17-59); BILIRUBIN,DIRECT 3.1 mg/dL (0.0-0.4); BILIRUBIN,TOTAL 5.8 mg/dL (0.2-1.3); BLOOD UREA NITROGEN 12 mg/dL (7-20); CALCIUM 7.8 mg/dL (8.4-10.2); CARBON DIOXIDE 22 mmol/L (22-30); CHLORIDE 106 mmol/L (98-107); GLUCOSE 100 mg/dL (75-110); POTASSIUM 3.1 mmol/L (3.6-5.0); SODIUM 138.6 mmol/L (137-145); TOTAL PROTEIN 6.7 g/dL (6.3-8.2)
[2018-06-06] MEDS: FUROSEMIDE INJ/PF 40 MG/4 ML SDV IV SCH ×2 (11:27→21:18)
[2018-06-06] MEDS: CARVEDILOL 3.125 MG TABLET PO SCH ×2 (11:27→21:18)
[2018-06-06] MEDS: FAMOTIDINE 20 MG TABLET PO SCH ×2 (11:28→21:18)
[2018-06-06] MEDS: FERROUS SULFATE 325 MG TABLET PO SCH ×2 (11:28→18:03)
[2018-06-06] MEDS: FOLIC ACID 1 MG TABLET PO SCH (11:28)
[2018-06-06] MEDS: NICOTINE 14 MG/24 HR PATCH.TD24 TD SCH (11:29)
[2018-06-06] MEDS: CYANOCOBALAMIN (VITAMIN B-12) 1,000 MCG TABLET PO SCH (11:29)
[2018-06-06] MEDS: RIFAXIMIN 550 MG TABLET PO SCH ×2 (11:29→21:20)
[2018-06-06] MEDS: NYSTATIN TOPICAL POWDER 15 GM TP SCH ×2 (11:30→18:03)
[2018-06-06] MEDS: SPIRONOLACTONE 25 MG TABLET PO SCH ×2 (11:31→18:03)
[2018-06-06] MEDS: ENOXAPARIN SODIUM INJ 30 MG/0.3 ML DISP.SYRIN SUBCUT SCH (11:32)
--- NOTE | 2018-06-06 15:01 | PDOC PROGRESS REPORT ---
Subjective Progress Note for:: 06/06/18 Subjective:: 06/04/2018-no acute events in the last 24 hours. Patient is afebrile. Still not taking any medications by mouth. amminia level went up to 124. I spoke to his daughter discussed the care plan she said he is requested to be a full code. 06/05/2018-patient is little bit more alert more awake compared to yesterday. Daughter is bedside. She said he recognized her able to talk to her little bit. Acute events in the last 24 hours. Patient is afebrile. 06/06/2018-acute events in the last 24 hours. Patient is afebrile. He is more awake more alert. Able to start eating. Able to talk to the family members on the phone. Significant turnaround in his mental status. Reason For Visit: HEPATIC ENCEPHALOPATHY Physical Exam Vital Signs: Temp Pulse Resp BP Pulse Ox 98.5 F 82 18 119/51 L 99 06/06/18 12:00 06/06/18 14:00 06/06/18 12:00 06/06/18 12:00 06/06/18 12:00 Intake & Output 06/05/18 06/06/18 06/07/18 06:59 06:59 06:59 Intake Total 946 1800 Balance 946 1800 Weight 61 kg 63 kg 63 kg General appearance: PRESENT: no acute distress, thin Head exam: PRESENT: atraumatic Eye exam: PRESENT: PERRLA Mouth exam: PRESENT: moist, tongue midline Neck exam: ABSENT: carotid bruit, JVD, lymphadenopathy, thyromegaly Respiratory exam: PRESENT: decreased breath sounds Cardiovascular exam: PRESENT: tachycardia GI/Abdominal exam: PRESENT: normal bowel sounds, soft. ABSENT: distended, guarding, mass, organolmegaly, rebound, tenderness Extremities exam: PRESENT: full ROM. ABSENT: calf tenderness, clubbing, pedal edema Neurological exam: PRESENT: alert, awake, oriented to person, oriented to place, oriented to time, oriented to situation, CN II-XII grossly intact. ABSENT: motor sensory deficit Psychiatric exam: PRESENT: appropriate affect, normal mood. ABSENT: homicidal ideation, suicidal ideation Results Laboratory Results: 06/06/18 07:55 06/06/18 07:55 06/06/18 06/06/18 06/06/18 07:55 07:55 07:55 WBC 8.6 RBC 2.74 L Hgb 9.8 L Hct 27.9 L MCV 102 H MCH 35.8 H MCHC 35.1 RDW 18.0 H Plt Count 116 L Seg Neutrophils % Not Reportable Lymphocytes % Not Reportable Monocytes % Not Reportable Eosinophils % Not Reportable Basophils % Not Reportable Absolute Neutrophils Not Reportable Absolute Lymphocytes Not Reportable Absolute Monocytes Not Reportable Absolute Eosinophils Not Reportable Absolute Basophils Not Reportable Sodium 138.6 Potassium 3.1 L Chloride 106 Carbon Dioxide 22 Anion Gap 11 BUN 12 Creatinine 0.94 Est GFR ( Amer) > 60 Est GFR (Non-Af Amer) > 60 Glucose 100 Calcium 7.8 L Magnesium 2.4 H Total Bilirubin 5.8 H AST 55 ALT 22 Alkaline Phosphatase 136 H Ammonia 21.4 Total Protein 6.7 Albumin 2.4 L 06/03/18 06/03/18 06/03/18 13:20 13:20 23:32 Creatine Kinase 128 125 CK-MB (CK-2) 3.58 NT-Pro-B Natriuret Pep 06/03/18 06/04/18 06/04/18 23:32 05:39 05:39 Creatine Kinase 120 CK-MB (CK-2) 2.48 2.33 NT-Pro-B Natriuret Pep 391 Impressions: Abdomen CT 06/03/18 00:00 IMPRESSION: Large amount of ascites. Findings consistent with cirrhosis and portal venous hypertension- numerous varices. Head CT 06/03/18 00:00 IMPRESSION: No acute intracranial findings. Left maxillary and sphenoid sinusitis. EVIDENCE OF ACUTE STROKE: NO. Chest X-Ray 06/03/18 17:19 IMPRESSION: NO ACUTE FINDINGS. Abdomen Ultrasound 06/04/18 00:00 IMPRESSION: 1. Mild volume ascites in the abdomen. Assessment & Plan - Diagnosis (1) Altered mental status Is this a current diagnosis for this admission?: Yes Plan: 06/03/2018-patient going to be admitted for altered mental status with high ammonia levels and he has history of liver cirrhosis. Altered mental status most likely secondary to liver cirrhosis causing hepatic encephalopathy. Patient is going to be in the telemetry. We are going to give a p.o. lactulose. To restart his home medications. To check his ammonia levels again tomorrow. Plan to do the CT abdominal pelvis to get a bit better picture of the ascites and because of the presence of umbilical hernia rule out any strangulation. Aspiration fall seizure precautions will be requested. In the ER patient was agitated he was given lorazepam and IV going to continue IV lorazepam every 6 as needed for agitation. Prophylaxis and DVT prophylaxis will be provided. pt will be admitted as inpatient. 06/04/2018-admitted for altered mental status ..ammonia level went up to 124. to repeat ammonia level and give soap lisandra enema to give diarrhea pt is not talking meds by mouth. 06/05/2018-patient was admitted with altered mental status most likely secondary to hepatic encephalopathy his ammonia level is 124 yesterday slightly improved to 122 today he is not taking oral lactulose as requested. He is more alert more awake today hopefully will continue take lactulose. I discussed the plan o f care with patient's daughter she is happy with the care so far. 06/16/2018-patient was admitted with altered mental status most likely secondary hepatic encephalopathy on admission ammonia level is 110 increased to 124 although slowly weaned down. Today ammonia level is 21.4 normal. Patient ment al status is significantly improved. (2) Ascites Qualifiers: Ascites type: due to alcoholic cirrhosis Qualified Code(s): K70.31 - Alcoholic cirrhosis of liver with ascites Is this a current diagnosis for this admission?: No Plan: 06/03/2018-patient has history of liver cirrhosis with ascites we going to do the CT abdomen pelvis to see if the ascitic fluid is significant enough to do a tap. Patient is on p.o. Lasix at home/[facility] will continue diuretics but I am going to switch her to IV Lasix. 06/04/2018-ultrasound done today shows ascites is improved compared to the CT scan that was done yesterday. Plan is to continue the IV Lasix therapy. 06/05/2018-the ascites much improved compared to admission findings. CT abdomen initially shows large amount of ascitic fluid follow-up ultrasound shows significant decrease in the ascitic fluid . Plan is to continue the IV Lasix. 06/06/2018-ascites is significantly improved during this hospital stay. We are going to put him on fluid restriction 1500 mL/day. (3) Hypokalemia Is this a current diagnosis for this admission?: Yes Plan: 06/03/2018-patient came in with potassium 3.4 hypokalemia be going to put him on a K rider 40 mEq IV daily. To recheck the labs tomorrow. 06/04/2018 potassium level is 3.7 hypokalemia resolved he is getting potassium IV supplementation. 06/05/2018-latest potassium is 3.7 plan is to continue potassium supplementation. 06/06/2018-patient potassium level is 3.1 to start him on potassium 40 mg p.o. twice a day. Recheck his potassium levels tomorrow. (4) Macrocytic anemia Is this a current diagnosis for this admission?: No Plan: 06/03/2018-patient admission hemoglobin is 9.7 anemia of chronic disease most likely secondary to liver cirrhosis. plan is to check daily cbc 06/04/2018-patient's hemoglobin is 9.7 stable he has anemia of chronic disease most likely secondary to liver cirrhosis. 06/05/2018-patient hemoglobin is 9.7 stable. Anemia of chronic disease most likely secondary to chronic liver failure. 06/06/2018-patient hemoglobin is 9.8 stable anemia of chronic disease most likely secondary to chronic liver cirrhosis. (5) Coagulopathy Is this a current diagnosis for this admission?: No Plan: 06/03/2018-patient's INR is 1.7. Within therapeutic range. Be going to check INR and daily basis. 06/05/2018 patient's INR is 1.7 no evidence of any active bleeding. No petechiae are noticed on the skin. Plan is to check PT/INR tomorrow. The 10/2018-patient INR is 1.87 most likely secondary to liver cirrhosis. (6) Thrombocytopenia Is this a current diagnosis for this admission?: No - Time Time Spent with patient: 15-24 minutes Smoking Cessation Education: over 10 minutes Medications reviewed and adjusted accordingly: Yes Anticipated discharge: SNF
[2018-06-06] MEDS: TAMSULOSIN HCL 0.4 MG CAP.SR.24H PO SCH (18:03)
[2018-06-06] MEDS: THIAMINE HCL 100 MG TABLET PO SCH (18:03)
[2018-06-06] MEDS: POTASSIUM CHLORIDE 10 MEQ CAPSULE.ER PO SCH (21:18)
[2018-06-07] MEDS: LACTULOSE SYRUP 20 GM/30 ML UDCUP PO SCH ×4 (02:34→17:57)
[2018-06-07] MEDS: ACETAMINOPHEN 325 MG TABLET PO PRN ×2 (06:40→21:54)
[2018-06-07 07:03] LABS: ABSOLUTE BASOPHILS # (AUTO) 0.1 10^3/uL (0.0-0.2); ABSOLUTE EOSINOPHILS # (AUTO) 1.4 10^3/uL (0.0-0.6); ABSOLUTE LYMPHOCYTES (AUTO) 1.5 10^3/uL (0.5-4.7); BASOPHILS % (AUTO) 0.8 % (0-2); EOSINOPHILS % (AUTO) 16.1 % (0-6); HEMATOCRIT 29.8 % (37.9-51.0); HEMOGLOBIN 10.5 g/dL (13.5-17.0); LYMPHOCYTES % (AUTO) 16.5 % (13-45); MEAN CORPUSCULAR HEMOGLOBIN 36.1 pg (27.0-33.4); MEAN CORPUSCULAR HGB CONC 35.3 g/dL (32.0-36.0); MEAN CORPUSCULAR VOLUME 102 fl (80-97); MONOCYTES % (AUTO) 11.3 % (3-13); PLATELET COUNT 116 10^3/uL (150-450); RED BLOOD COUNT 2.91 10^6/uL (4.35-5.55); RED CELL DISTRIBUTION WIDTH 17.8 % (11.5-14.0); SEGMENTED NEUTROPHILS % (AUTO) 55.3 % (42-78); TOTAL CELLS COUNTED % (AUTO) 100 %
[2018-06-07 07:21] LABS: ALANINE AMINOTRANSFERASE 34 U/L (21-72); ALBUMIN 2.5 g/dL (3.5-5.0); ALKALINE PHOSPHATASE 125 U/L (38-126); ANION GAP 9 (5-19); ASPARTATE AMINO TRANSFERASE 64 U/L (17-59); BILIRUBIN,DIRECT 2.3 mg/dL (0.0-0.4); BILIRUBIN,TOTAL 4.7 mg/dL (0.2-1.3); BLOOD UREA NITROGEN 8 mg/dL (7-20); CALCIUM 8.4 mg/dL (8.4-10.2); CARBON DIOXIDE 23 mmol/L (22-30); CHLORIDE 102 mmol/L (98-107); GLUCOSE 85 mg/dL (75-110); SODIUM 134.4 mmol/L (137-145); TOTAL PROTEIN 7.1 g/dL (6.3-8.2)
[2018-06-07 07:39] LABS: POTASSIUM 4.1 mmol/L (3.6-5.0)
[2018-06-07] MEDS: ENOXAPARIN SODIUM INJ 30 MG/0.3 ML DISP.SYRIN SUBCUT SCH (10:51)
[2018-06-07] MEDS: FOLIC ACID 1 MG TABLET PO SCH (10:53)
[2018-06-07] MEDS: SPIRONOLACTONE 25 MG TABLET PO SCH ×2 (10:53→17:57)
[2018-06-07] MEDS: FERROUS SULFATE 325 MG TABLET PO SCH ×2 (10:53→17:57)
[2018-06-07] MEDS: CYANOCOBALAMIN (VITAMIN B-12) 1,000 MCG TABLET PO SCH (10:53)
[2018-06-07] MEDS: CARVEDILOL 3.125 MG TABLET PO SCH ×2 (10:53→21:32)
[2018-06-07] MEDS: POTASSIUM CHLORIDE 10 MEQ CAPSULE.ER PO SCH ×2 (10:53→21:53)
[2018-06-07] MEDS: FAMOTIDINE 20 MG TABLET PO SCH ×2 (10:53→21:53)
[2018-06-07] MEDS: RIFAXIMIN 550 MG TABLET PO SCH ×2 (10:53→21:55)
[2018-06-07] MEDS: NICOTINE 14 MG/24 HR PATCH.TD24 TD SCH (10:54)
[2018-06-07] MEDS: NYSTATIN TOPICAL POWDER 15 GM TP SCH ×2 (10:57→18:00)
[2018-06-07] MEDS: FUROSEMIDE INJ/PF 40 MG/4 ML SDV IV SCH ×2 (11:05→21:32)
--- NOTE | 2018-06-07 13:19 | PDOC PROGRESS REPORT ---
Subjective Progress Note for:: 06/07/18 Subjective:: 06/04/2018-no acute events in the last 24 hours. Patient is afebrile. Still not taking any medications by mouth. amminia level went up to 124. I spoke to his daughter discussed the care plan she said he is requested to be a full code. 06/05/2018-patient is little bit more alert more awake compared to yesterday. Daughter is bedside. She said he recognized her able to talk to her little bit. Acute events in the last 24 hours. Patient is afebrile. 06/06/2018-acute events in the last 24 hours. Patient is afebrile. He is more awake more alert. Able to start eating. Able to talk to the family members on the phone. Significant turnaround in his mental status. 06/07/2018 no acute events in the last 24 hours. Patient is afebrile. Alert more oriented he is not happy about fluid restriction of 1500 mL. Afebrile. To explain to him about fluid restriction because excessive fluid intake may result in worsening of the ascites. Patient understood but he still wants to drink more fluids.. Reason For Visit: HEPATIC ENCEPHALOPATHY Physical Exam Vital Signs: Temp Pulse Resp BP Pulse Ox 98.2 F 73 17 113/56 L 97 06/07/18 08:00 06/07/18 08:00 06/07/18 08:00 06/07/18 08:00 06/07/18 08:00 Intake & Output 06/06/18 06/07/18 06/08/18 06:59 06:59 07:59 Intake Total 1800 3122 Balance 1800 3122 Weight 63 kg 59.3 kg General appearance: PRESENT: disheveled, thin Head exam: PRESENT: atraumatic Eye exam: PRESENT: PERRLA Mouth exam: PRESENT: moist, tongue midline Neck exam: ABSENT: carotid bruit, JVD, lymphadenopathy, thyromegaly Respiratory exam: PRESENT: decreased breath sounds Cardiovascular exam: PRESENT: tachycardia GI/Abdominal exam: PRESENT: ascites, normal bowel sounds Extremities exam: PRESENT: full ROM. ABSENT: calf tenderness, clubbing, pedal edema Neurological exam: PRESENT: alert, awake, oriented to person, oriented to place, oriented to time, oriented to situation, CN II-XII grossly intact. ABSENT: motor sensory deficit Psychiatric exam: PRESENT: appropriate affect, normal mood. ABSENT: homicidal ideation, suicidal ideation Results Laboratory Results: 06/07/18 06:19 06/07/18 06:19 06/07/18 06/07/18 06/07/18 06:19 06:19 06:27 WBC 9.0 RBC 2.91 L Hgb 10.5 L Hct 29.8 L MCV 102 H MCH 36.1 H MCHC 35.3 RDW 17.8 H Plt Count 116 L Seg Neutrophils % 55.3 Lymphocytes % 16.5 Monocytes % 11.3 Eosinophils % 16.1 H Basophils % 0.8 Absolute Neutrophils 5.0 Absolute Lymphocytes 1.5 Absolute Monocytes 1.0 Absolute Eosinophils 1.4 H Absolute Basophils 0.1 Sodium 134.4 L Potassium 4.1 D Chloride 102 Carbon Dioxide 23 Anion Gap 9 BUN 8 Creatinine 0.77 Est GFR ( Amer) > 60 Est GFR (Non-Af Amer) > 60 Glucose 85 Calcium 8.4 Magnesium 2.0 Total Bilirubin 4.7 H AST 64 H ALT 34 Alkaline Phosphatase 125 Ammonia 12.0 Total Protein 7.1 Albumin 2.5 L 06/03/18 06/03/18 06/03/18 13:20 13:20 23:32 Creatine Kinase 128 125 CK-MB (CK-2) 3.58 NT-Pro-B Natriuret Pep 06/03/18 06/04/18 06/04/18 23:32 05:39 05:39 Creatine Kinase 120 CK-MB (CK-2) 2.48 2.33 NT-Pro-B Natriuret Pep 391 Impressions: Abdomen CT 06/03/18 00:00 IMPRESSION: Large amount of ascites. Findings consistent with cirrhosis and portal venous hypertension- numerous varices. Head CT 06/03/18 00:00 IMPRESSION: No acute intracranial findings. Left maxillary and sphenoid sinusitis. EVIDENCE OF ACUTE STROKE: NO. Chest X-Ray 06/03/18 17:19 IMPRESSION: NO ACUTE FINDINGS. Abdomen Ultrasound 06/04/18 00:00 IMPRESSION: 1. Mild volume ascites in the abdomen. Assessment & Plan - Diagnosis (1) Altered mental status Is this a current diagnosis for this admission?: Yes Plan: 06/03/2018-patient going to be admitted for altered mental status with high ammonia levels and he has history of liver cirrhosis. Altered mental status m ost likely secondary to liver cirrhosis causing hepatic encephalopathy. Patient is going to be in the telemetry. We are going to give a p.o. lactulose. To restart his home medications. To check his ammonia levels again tomorrow. Plan to do the CT abdominal pelvis to get a bit better picture of the ascites and because of the presence of umbilical hernia rule out any strangulation. Aspiration fall seizure precautions will be requested. In the ER patient was agitated he was given lorazepam and IV going to continue IV lorazepam every 6 as needed for agitation. Prophylaxis and DVT prophylaxis will be provided. pt will be admitted as inpatient. 06/04/2018-admitted for altered mental status ..ammonia level went up to 124. to repeat ammonia level and give soap lisandra enema to give diarrhea pt is not talking meds by mouth. 06/05/2018-patient was admitted with altered mental status most likely secondary to hepatic encephalopathy his ammonia level is 124 yesterday slightly improved to 122 today he is not taking oral lactulose as requested. He is more alert more awake today hopefully will continue take lactulose. I discussed the plan of care with patient's daughter she is happy with the care so far. 06/06/2018-patient was admitted with altered mental status most likely secondary hepatic encephalopathy on admission ammonia level is 110 increased to 124 although slowly weaned down. Today ammonia level is 21.4 normal. Patient mental status is significantly improved. 06/07/2018-patient was admitted with altered mental status most likely secondary to hepatic encephalopathy initial ammonia level came back around 110 and it was improved to 21.4 yesterday. Ammonia level is 12. Mental status is resolved patient alert oriented communicating very well. (2) Ascites Qualifiers: Ascites type: due to alcoholic cirrhosis Qualified Code(s): K70.31 - Alcoholic cirrhosis of liver with ascites Is this a current diagnosis for this admission?: No Plan: 06/03/2018-patient has history of liver cirrhosis with ascites we going to do the CT abdomen pelvis to see if the ascitic fluid is significant enough to do a tap. Patient is on p.o. Lasix at home[facility] will continue diuretics but I am going to switch her to IV Lasix. 06/04/2018-ultrasound done today shows ascites is improved compared to the CT scan that was done yesterday. Plan is to continue the IV Lasix therapy. 06/05/2018-the ascites much improved compared to admission findings. CT abdomen initially shows large amount of ascitic fluid follow-up ultrasound shows significant decrease in the ascitic fluid . Plan is to continue the IV Lasix. 06/06/2018-ascites is significantly improved during this hospital stay. We are going to put him on fluid restriction 1500 mL/day. 06/07/2018-ascites is significantly improved during the hospital stay because of the IV Lasix therapy and spironolactone. Plan is to continue the present management as per the patient request fluid restriction was increased to 1700 mL/day. (3) Hypokalemia Is this a current diagnosis for this admission?: Yes Plan: 06/03/2018-patient came in with potassium 3.4 hypokalemia be going to put him on a K rider 40 mEq IV daily. To recheck the labs tomorrow. 06/04/2018 potassium level is 3.7 hypokalemia resolved he is getting potassium IV supplementation. 06/05/2018-latest potassium is 3.7 plan is to continue potassium supplementation. 06/06/2018-patient potassium level is 3.1 to start him on potassium 40 mg p.o. twice a day. Recheck his potassium levels tomorrow. 06/07/2018-patient's potassium level today is 4.1 hypokalemia is resolved. (4) Macrocytic anemia Is this a current diagnosis for this admission?: No Plan: 06/03/2018-patient admission hemoglobin is 9.7 anemia of chronic disease most likely secondary to liver cirrhosis. plan is to check daily cbc 06/04/2018-patient's hemoglobin is 9.7 stable he has anemia of chronic disease most likely secondary to liver cirrhosis. 06/05/2018-patient hemoglobin is 9.7 stable. Anemia of chronic disease most likely secondary to chronic liver failure. 06/06/2018-patient hemoglobin is 9.8 stable anemia of chronic disease most likely secondary to chronic liver cirrhosis. 06/07/2018-patient's hemoglobin is 10.5 stable. Most likely secondary to liver cirrhosis. (5) Coagulopathy Is this a current diagnosis for this admission?: No Plan: 06/03/2018-patient's INR is 1.7. Within therapeutic range. Be going to check INR and daily basis. 06/05/2018 patient's INR is 1.7 no evidence of any active bleeding. No petechiae are noticed on the skin. Plan is to check PT/INR tomorrow. 06/06/2018-patient INR is 1.87 most likely secondary to liver cirrhosis. (6) Thrombocytopenia Is this a current diagnosis for this admission?: No Plan: 06/04/2018-patient platelet count is 109 today most likely secondary to liver f ailure. 06/05/2018 latest platelet count is 109. Thrombocytopenia most likely secondary to chronic liver failure. Platelet count today is 116 slight improvement low platelet count most likely secondary to liver failure. - Time Time Spent with patient: 15-24 minutes Medications reviewed and adjusted accordingly: Yes Anticipated discharge: SNF
[2018-06-07] MEDS: THIAMINE HCL 100 MG TABLET PO SCH (17:57)
[2018-06-07] MEDS: TAMSULOSIN HCL 0.4 MG CAP.SR.24H PO SCH (17:57)
[2018-06-08] MEDS: LACTULOSE SYRUP 20 GM/30 ML UDCUP PO SCH ×5 (01:23→23:15)
[2018-06-08] MEDS: ACETAMINOPHEN 325 MG TABLET PO PRN (09:35)
[2018-06-08] MEDS: FAMOTIDINE 20 MG TABLET PO SCH ×2 (09:35→21:16)
[2018-06-08] MEDS: CARVEDILOL 3.125 MG TABLET PO SCH ×2 (09:35→21:09)
[2018-06-08] MEDS: FERROUS SULFATE 325 MG TABLET PO SCH ×2 (09:35→17:05)
[2018-06-08] MEDS: CYANOCOBALAMIN (VITAMIN B-12) 1,000 MCG TABLET PO SCH (09:35)
[2018-06-08] MEDS: FOLIC ACID 1 MG TABLET PO SCH (09:35)
[2018-06-08] MEDS: POTASSIUM CHLORIDE 10 MEQ CAPSULE.ER PO SCH ×2 (09:35→21:16)
[2018-06-08] MEDS: NICOTINE 14 MG/24 HR PATCH.TD24 TD SCH (09:36)
[2018-06-08] MEDS: RIFAXIMIN 550 MG TABLET PO SCH ×2 (09:36→21:16)
[2018-06-08] MEDS: ENOXAPARIN SODIUM INJ 30 MG/0.3 ML DISP.SYRIN SUBCUT SCH (09:37)
[2018-06-08] MEDS: FUROSEMIDE INJ/PF 40 MG/4 ML SDV IV SCH ×2 (09:37→21:09)
[2018-06-08] MEDS: NYSTATIN TOPICAL POWDER 15 GM TP SCH ×2 (09:37→17:06)
[2018-06-08] MEDS: SPIRONOLACTONE 25 MG TABLET PO SCH ×2 (09:39→17:05)
--- NOTE | 2018-06-08 12:42 | PDOC PROGRESS REPORT ---
Subjective Progress Note for:: 06/08/18 Subjective:: 06/04/2018-no acute events in the last 24 hours. Patient is afebrile. Still not taking any medications by mouth. amminia level went up to 124. I spoke to his daughter discussed the care plan she said he is requested to be a full code. 06/05/2018-patient is little bit more alert more awake compared to yesterday. Daughter is bedside. She said he recognized her able to talk to her little bit. Acute events in the last 24 hours. Patient is afebrile. 06/06/2018-acute events in the last 24 hours. Patient is afebrile. He is more awake more alert. Able to start eating. Able to talk to the family members on the phone. Significant turnaround in his mental status. 06/07/2018 no acute events in the last 24 hours. Patient is afebrile. Alert more oriented he is not happy about fluid restriction of 1500 mL. Afebrile. To explain to him about fluid restriction because excessive fluid intake may result in worsening of the ascites. Patient understood but he still wants to drink more fluids.. 06/08/2018-no acute events in the last 24 hours. Patient is afebrile. Patient is on fluid restriction 1700 mL/day. No acute events in the last 24 hours. Patient is alert awake oriented. Reason For Visit: HEPATIC ENCEPHALOPATHY Physical Exam Vital Signs: Temp Pulse Resp BP Pulse Ox 98.8 F 79 17 108/56 L 99 06/08/18 08:00 06/08/18 08:00 06/08/18 08:00 06/08/18 08:00 06/08/18 08:00 Intake & Output 06/07/18 06/08/18 06/09/18 05:59 06:59 06:59 Intake Total Output Total Balance Weight General appearance: PRESENT: disheveled, thin Head exam: PRESENT: atraumatic Eye exam: PRESENT: PERRLA Teeth exam: PRESENT: poor dentation Neck exam: ABSENT: carotid bruit, JVD, lymphadenopathy, thyromegaly Respiratory exam: PRESENT: decreased breath sounds Cardiovascular exam: PRESENT: tachycardia GI/Abdominal exam: PRESENT: ascites, normal bowel sounds Extremities exam: PRESENT: full ROM. ABSENT: calf tenderness, clubbing, pedal edema Neurological exam: PRESENT: alert, awake, oriented to person, oriented to place, oriented to time, oriented to situation, CN II-XII grossly intact. ABSENT: motor sensory deficit Psychiatric exam: PRESENT: appropriate affect, normal mood. ABSENT: homicidal ideation, suicidal ideation Results Laboratory Results: 06/07/18 06:19 06/07/18 06:19 06/03/18 06/03/18 06/03/18 13:20 13:20 23:32 Creatine Kinase 128 125 CK-MB (CK-2) 3.58 NT-Pro-B Natriuret Pep 06/03/18 06/04/18 06/04/18 23:32 05:39 05:39 Creatine Kinase 120 CK-MB (CK-2) 2.48 2.33 NT-Pro-B Natriuret Pep 391 Impressions: Abdomen CT 06/03/18 00:00 IMPRESSION: Large amount of ascites. Findings consistent with cirrhosis and portal venous hypertension- numerous varices. Head CT 06/03/18 00:00 IMPRESSION: No acute intracranial findings. Left maxillary and sphenoid sinusitis. EVIDENCE OF ACUTE STROKE: NO. Chest X-Ray 06/03/18 17:19 IMPRESSION: NO ACUTE FINDINGS. Abdomen Ultrasound 06/04/18 00:00 IMPRESSION: 1. Mild volume ascites in the abdomen. Assessment & Plan - Diagnosis (1) Altered mental status Is this a current diagnosis for this admission?: Yes Plan: 06/03/2018-patient going to be admitted for altered mental status with high ammonia levels and he has history of liver cirrhosis. Altered mental status most likely secondary to liver cirrhosis causing hepatic encephalopathy. Patient is going to be in the telemetry. We are going to give a p.o. lactulose. To restart his home medications. To check his ammonia levels again tomorrow. Plan to do the CT abdominal pelvis to get a bit better picture of the ascites an d because of the presence of umbilical hernia rule out any strangulation. Aspiration fall seizure precautions will be requested. In the ER patient was agitated he was given lorazepam and IV going to continue IV lorazepam every 6 as needed for agitation. Prophylaxis and DVT prophylaxis will be provided. pt will be admitted as inpatient. 06/04/2018-admitted for altered mental status ..ammonia level went up to 124. to repeat ammonia level and give soap lisandra enema to give diarrhea pt is not talking meds by mouth. 06/05/2018-patient was admitted with altered mental status most likely secondary to hepatic encephalopathy his ammonia level is 124 yesterday slightly improved to 122 today he is not taking oral lactulose as requested. He is more alert more awake today hopefully will continue take lactulose. I discussed the plan of care with patient's daughter she is happy with the care so far. 06/06/2018-patient was admitted with altered mental status most likely secondary hepatic encephalopathy on admission ammonia level is 110 increased to 124 although slowly weaned down. Today ammonia level is 21.4 normal. Patient mental status is significantly improved. 06/07/2018-patient was admitted with altered mental status most likely secondary to hepatic encephalopathy initial ammonia level came back around 110 and it was improved to 21.4 yesterday. Ammonia level is 12. Mental status is resolved patient alert oriented communicating very well. 06/08/2018 altered mental status secondary to hepatic encephalopathy is resolved. Latest ammonia level is 12. (2) Ascites Qualifiers: Ascites type: due to alcoholic cirrhosis Qualified Code(s): K70.31 - Alcoholic cirrhosis of liver with ascites Is this a current diagnosis for this admission?: No Plan: 06/03/2018-patient has history of liver cirrhosis with ascites we going to do the CT abdomen pelvis to see if the ascitic fluid is significant enough to do a tap. Patient is on p.o. Lasix at home[facility] will continue diuretics but I am going to switch her to IV Lasix. 06/04/2018-ultrasound done today shows ascites is improved compared to the CT scan that was done yesterday. Plan is to continue the IV Lasix therapy. 06/05/2018-the ascites much improved compared to admission findings. CT abdomen initially shows large amount of ascitic fluid follow-up ultrasound shows significant decrease in the ascitic fluid . Plan is to continue the IV Lasix. 06/06/2018-ascites is significantly improved during this hospital stay. We are going to put him on fluid restriction 1500 mL/day. 06/07/2018-ascites is significantly improved during the hospital stay because of the IV Lasix therapy and spironolactone. Plan is to continue the present management as per the patient request fluid restriction was increased to 1700 mL/day. 06/08/2018-patient came in with massive ascites he is on IV Lasix and spironolactone as a disease relatively controlled. (3) Hypokalemia Is this a current diagnosis for this admission?: Yes Plan: 06/03/2018-patient came in with potassium 3.4 hypokalemia be going to put him on a K rider 40 mEq IV daily. To recheck the labs tomorrow. 06/04/2018 potassium level is 3.7 hypokalemia resolved he is getting potassium IV supplementation. 06/05/2018-latest potassium is 3.7 plan is to continue potassium supplementation. 06/06/2018-patient potassium level is 3.1 to start him on potassium 40 mg p.o. twice a day. Recheck his potassium levels tomorrow. 06/07/2018-patient's potassium level today is 4.1 hypokalemia is resolved. 06/08/2018-potassium level today is 4.1 patient is on potassium supplementations plan is to continue the present management. (4) Macrocytic anemia Is this a current diagnosis for this admission?: No Plan: 06/03/2018-patient admission hemoglobin is 9.7 anemia of chronic disease most likely secondary to liver cirrhosis. plan is to check daily cbc 06/04/2018-patient's hemoglobin is 9.7 stable he has anemia of chronic disease most likely secondary to liver cirrhosis. 06/05/2018-patient hemoglobin is 9.7 stable. Anemia of chronic disease most likely secondary to chronic liver failure. 06/06/2018-patient hemoglobin is 9.8 stable anemia of chronic disease most likely secondary to chronic liver cirrhosis. 06/07/2018-patient's hemoglobin is 10.5 stable. Most likely secondary to liver cirrhosis. 06/08/2018-patient's hemoglobin is 10.5 stable. (5) Coagulopathy Is this a current diagnosis for this admission?: No (6) Thrombocytopenia Is this a current diagnosis for this admission?: No Plan: 06/04/2018-patient platelet count is 109 today most likely secondary to liver failure. 06/05/2018 latest platelet count is 109. Thrombocytopenia most likely secondary to chronic liver failure. Platelet count today is 116 slight improvement low platelet count most likely secondary to liver failure. 06/08/2018 platelet count is 116 thrombocytopenia most likely secondary to chronic liver cirrhosis. - Time Time Spent with patient: 15-24 minutes Medications reviewed and adjusted accordingly: Yes Anticipated discharge: SNF
[2018-06-08] MEDS: THIAMINE HCL 100 MG TABLET PO SCH (17:05)
[2018-06-08] MEDS: TAMSULOSIN HCL 0.4 MG CAP.SR.24H PO SCH (17:06)
[2018-06-09] MEDS: LACTULOSE SYRUP 20 GM/30 ML UDCUP PO SCH ×3 (05:19→18:17)
[2018-06-09] MEDS: NYSTATIN TOPICAL POWDER 15 GM TP SCH ×2 (09:24→18:18)
[2018-06-09] MEDS: RIFAXIMIN 550 MG TABLET PO SCH ×2 (09:24→21:47)
[2018-06-09] MEDS: FOLIC ACID 1 MG TABLET PO SCH (09:25)
[2018-06-09] MEDS: CYANOCOBALAMIN (VITAMIN B-12) 1,000 MCG TABLET PO SCH (09:25)
[2018-06-09] MEDS: CARVEDILOL 3.125 MG TABLET PO SCH ×2 (09:25→21:47)
[2018-06-09] MEDS: FERROUS SULFATE 325 MG TABLET PO SCH ×2 (09:25→18:17)
[2018-06-09] MEDS: POTASSIUM CHLORIDE 10 MEQ CAPSULE.ER PO SCH ×2 (09:25→21:46)
[2018-06-09] MEDS: FAMOTIDINE 20 MG TABLET PO SCH ×2 (09:25→21:47)
[2018-06-09] MEDS: FUROSEMIDE INJ/PF 40 MG/4 ML SDV IV SCH ×2 (09:26→21:49)
[2018-06-09] MEDS: NICOTINE 14 MG/24 HR PATCH.TD24 TD SCH (09:27)
[2018-06-09] MEDS: ENOXAPARIN SODIUM INJ 30 MG/0.3 ML DISP.SYRIN SUBCUT SCH (09:28)
[2018-06-09] MEDS: ACETAMINOPHEN 325 MG TABLET PO PRN (09:29)
[2018-06-09] MEDS: SPIRONOLACTONE 25 MG TABLET PO SCH ×2 (09:29→18:17)
--- NOTE | 2018-06-09 13:56 | PDOC PROGRESS REPORT ---
Subjective Progress Note for:: 06/09/18 Subjective:: 06/04/2018-no acute events in the last 24 hours. Patient is afebrile. Still not taking any medications by mouth. amminia level went up to 124. I spoke to his daughter discussed the care plan she said he is requested to be a full code. 06/05/2018-patient is little bit more alert more awake compared to yesterday. Daughter is bedside. She said he recognized her able to talk to her little bit. Acute events in the last 24 hours. Patient is afebrile. 06/06/2018-acute events in the last 24 hours. Patient is afebrile. He is more awake more alert. Able to start eating. Able to talk to the family members on the phone. Significant turnaround in his mental status. 06/07/2018 no acute events in the last 24 hours. Patient is afebrile. Alert more oriented he is not happy about fluid restriction of 1500 mL. Afebrile. To explain to him about fluid restriction because excessive fluid intake may result in worsening of the ascites. Patient understood but he still wants to drink more fluids.. 06/08/2018-no acute events in the last 24 hours. Patient is afebrile. Patient is on fluid restriction 1700 mL/day. No acute events in the last 24 hours. Patient is alert awake oriented. 06/09/2018 no acute events in the last 24 hours. Patient is afebrile. Patient mental status is back to baseline. Patient is refusing to adhere to fluid restriction. Reason For Visit: HEPATIC ENCEPHALOPATHY Physical Exam Vital Signs: Temp Pulse Resp BP Pulse Ox 98.8 F 76 16 113/50 L 97 06/09/18 09:19 06/09/18 09:19 06/09/18 09:19 06/09/18 09:19 06/09/18 09:19 Intake & Output 06/08/18 06/09/18 06/10/18 06:59 06:59 06:59 Intake Total 2872 Output Total 0 Balance 822 Weight 53.1 kg General appearance: PRESENT: no acute distress Head exam: PRESENT: atraumatic Eye exam: PRESENT: PERRLA Mouth exam: PRESENT: moist, tongue midline Neck exam: ABSENT: carotid bruit, JVD, lymphadenopathy, thyromegaly Respiratory exam: PRESENT: decreased breath sounds Cardiovascular exam: PRESENT: tachycardia GI/Abdominal exam: PRESENT: ascites, normal bowel sounds Extremities exam: PRESENT: full ROM. ABSENT: calf tenderness, clubbing, pedal edema Neurological exam: PRESENT: alert, awake, oriented to person, oriented to place, oriented to time, oriented to situation, CN II-XII grossly intact. ABSENT: motor sensory deficit Psychiatric exam: PRESENT: appropriate affect, normal mood. ABSENT: homicidal ideation, suicidal ideation Results Laboratory Results: 06/07/18 06:19 06/07/18 06:19 06/03/18 06/03/18 06/03/18 13:20 13:20 23:32 Creatine Kinase 128 125 CK-MB (CK-2) 3.58 NT-Pro-B Natriuret Pep 06/03/18 06/04/18 06/04/18 23:32 05:39 05:39 Creatine Kinase 120 CK-MB (CK-2) 2.48 2.33 NT-Pro-B Natriuret Pep 391 Impressions: Abdomen CT 06/03/18 00:00 IMPRESSION: Large amount of ascites. Findings consistent with cirrhosis and portal venous hypertension- numerous varices. Head CT 06/03/18 00:00 IMPRESSION: No acute intracranial findings. Left maxillary and sphenoid sinusitis. EVIDENCE OF ACUTE STROKE: NO. Chest X-Ray 06/03/18 17:19 IMPRESSION: NO ACUTE FINDINGS. Abdomen Ultrasound 06/04/18 00:00 IMPRESSION: 1. Mild volume ascites in the abdomen. Assessment & Plan - Diagnosis (1) Altered mental status Is this a current diagnosis for this admission?: Yes Plan: 06/03/2018-patient going to be admitted for altered mental status with high ammonia levels and he has history of liver cirrhosis. Altered mental status most likely secondary to liver cirrhosis causing hepatic encephalopathy. Patient is going to be in the telemetry. We are going to give a p.o. lactulose. To restart his home medications. To check his ammonia levels again tomorrow. Plan to do the CT abdominal pelvis to get a bit better picture of the ascites and because of the presence of umbilical hernia rule out any strangulation. Aspiration fall seizure precautions will be requested. In the ER patient was agitated he was given lorazepam and IV going to continue IV lorazepam every 6 as needed for agitation. Prophylaxis and DVT prophylaxis will be provided. pt will be admitted as inpatient. 06/04/2018-admitted for altered mental status ..ammonia level went up to 124. to repeat ammonia level and give soap lisandra enema to give diarrhea pt is not talking meds by mouth. 06/05/2018-patient was admitted with altered mental status most likely secondary to hepatic encephalopathy his ammonia level is 124 yesterday slightly improved to 122 today he is not taking oral lactulose as requested. He is more alert more awake today hopefully will continue take lactulose. I discussed the plan of care with patient's daughter she is happy with the care so far. 06/06/2018-patient was admitted with altered mental status most likely secondary hepatic encephalopathy on admission ammonia level is 110 increased to 124 although slowly weaned down. Today ammonia level is 21.4 normal. Patient mental status is significantly improved. 06/07/2018-patient was admitted with altered mental status most likely secondary to hepatic encephalopathy initial ammonia level came back around 110 and it was improved to 21.4 yesterday. Ammonia level is 12. Mental status is resolved patient alert oriented communicating very well. 06/08/2018 altered mental status secondary to hepatic encephalopathy is resolved. Latest ammonia level is 12. 06/09/2018-altered mental status/acute encephalopathy secondary to hepatic encephalopathy is resolved. (2) Ascites Qualifiers: Ascites type: due to alcoholic cirrhosis Qualified Code(s): K70.31 - Alcoholic cirrhosis of liver with ascites Is this a current diagnosis for this admission?: No Plan: 06/03/2018-patient has history of liver cirrhosis with ascites we going to do the CT abdomen pelvis to see if the ascitic fluid is significant enough to do a tap. Patient is on p.o. Lasix at home/long-term will continue diuretics but I am going to switch her to IV Lasix. 06/04/2018-ultrasound done today shows ascites is improved compared to the CT scan that was done yesterday. Plan is to continue the IV Lasix therapy. 06/05/2018-the ascites much improved compared to admission findings. CT abdomen initially shows large amount of ascitic fluid follow-up ultrasound shows significant decrease in the ascitic fluid . Plan is to continue the IV Lasix. 06/06/2018-ascites is significantly improved during this hospital stay. We are going to put him on fluid restriction 1500 mL/day. 06/07/2018-ascites is significantly improved during the hospital stay because of the IV Lasix therapy and spironolactone. Plan is to continue the present management as per the patient request fluid restriction was increased to 1700 mL/day. 06/08/2018-patient came in with massive ascites he is on IV Lasix and spironolactone as a disease relatively controlled. 06/09/2018-patient came in with a large amount of ascitic fluid with Lasix it was improved. But the patient is refusing to add her to fluid restrictions. (3) Hypokalemia Is this a current diagnosis for this admission?: Yes Plan: 06/03/2018-patient came in with potassium 3.4 hypokalemia be going to put him on a K rider 40 mEq IV daily. To recheck the labs tomorrow. 06/04/2018 potassium level is 3.7 hypokalemia resolved he is getting potassium IV supplementation. 06/05/2018-latest potassium is 3.7 plan is to continue potassium supplementation. 06/06/2018-patient potassium level is 3.1 to start him on potassium 40 mg p.o. twice a day. Recheck his potassium levels tomorrow. 06/07/2018-patient's potassium level today is 4.1 hypokalemia is resolved. 06/08/2018-potassium level today is 4.1 patient is on potassium supplementations plan is to continue the present management. 06/09/2018-patient potassium level is 4.1 today he is on potassium supplementation hypokalemia is resolved plan is to recheck his potassium levels tomorrow. (4) Macrocytic anemia Is this a current diagnosis for this admission?: No Plan: 06/03/2018-patient admission hemoglobin is 9.7 anemia of chronic disease most likely secondary to liver cirrhosis. plan is to check daily cbc 06/04/2018-patient's hemoglobin is 9.7 stable he has anemia of chronic disease most likely secondary to liver cirrhosis. 06/05/2018-patient hemoglobin is 9.7 stable. Anemia of chronic disease most likely secondary to chronic liver failure. 06/06/2018-patient hemoglobin is 9.8 stable anemia of chronic disease most likely secondary to chronic liver cirrhosis. 06/07/2018-patient's hemoglobin is 10.5 stable. Most likely secondary to liver cirrhosis. 06/08/2018-patient's hemoglobin is 10.5 stable. 06/09/2018-patient's hemoglobin today is 10.5. Stable. (5) Coagulopathy Is this a current diagnosis for this admission?: No Plan: 06/03/2018-patient's INR is 1.7. Within therapeutic range. Be going to check INR and daily basis. 06/05/2018 patient's INR is 1.7 no evidence of any active bleeding. No petechiae are noticed on the skin. Plan is to check PT/INR tomorrow. 06/06/2018-patient INR is 1.87 most likely secondary to liver cirrhosis. (6) Thrombocytopenia Is this a current diagnosis for this admission?: No Plan: 06/04/2018-patient platelet count is 109 today most likely secondary to liver failure. 06/05/2018 latest platelet count is 109. Thrombocytopenia most likely secondary to chronic liver failure. Platelet count today is 116 slight improvement low platelet count most likely secondary to liver failure. 06/08/2018 platelet count is 116 thrombocytopenia most likely secondary to chronic liver cirrhosis. - Time Time Spent with patient: 15-24 minutes Smoking Cessation Education: over 10 minutes Medications reviewed and adjusted accordingly: Yes Anticipated discharge: SNF
[2018-06-09] MEDS: THIAMINE HCL 100 MG TABLET PO SCH (18:17)
[2018-06-09] MEDS: TAMSULOSIN HCL 0.4 MG CAP.SR.24H PO SCH (18:17)
[2018-06-10] MEDS: LACTULOSE SYRUP 20 GM/30 ML UDCUP PO SCH ×3 (00:31→11:36)
[2018-06-10] MEDS: ENOXAPARIN SODIUM INJ 30 MG/0.3 ML DISP.SYRIN SUBCUT SCH (10:23)
[2018-06-10] MEDS: NICOTINE 14 MG/24 HR PATCH.TD24 TD SCH (10:24)
[2018-06-10] MEDS: CYANOCOBALAMIN (VITAMIN B-12) 1,000 MCG TABLET PO SCH (10:25)
[2018-06-10] MEDS: SPIRONOLACTONE 25 MG TABLET PO SCH (10:25)
[2018-06-10] MEDS: POTASSIUM CHLORIDE 10 MEQ CAPSULE.ER PO SCH (10:25)
[2018-06-10] MEDS: FERROUS SULFATE 325 MG TABLET PO SCH (10:25)
[2018-06-10] MEDS: CARVEDILOL 3.125 MG TABLET PO SCH (10:25)
[2018-06-10] MEDS: FOLIC ACID 1 MG TABLET PO SCH (10:25)
[2018-06-10] MEDS: FAMOTIDINE 20 MG TABLET PO SCH (10:25)
[2018-06-10] MEDS: FUROSEMIDE INJ/PF 40 MG/4 ML SDV IV SCH (10:26)
[2018-06-10] MEDS: NYSTATIN TOPICAL POWDER 15 GM TP SCH (10:26)
[2018-06-10] MEDS: RIFAXIMIN 550 MG TABLET PO SCH (10:31)
[2018-06-10 12:03] VITALS: BP 107/49
--- NOTE | 2018-06-10 12:33 | PDOC TRANSFER SUMMARY ---
General - Admit/Disc Date/PCP Admission Date/Primary Care Provider: 06/03/18 17:17 TARUN PATEL MD Discharge Date: 06/10/18 - Discharge Diagnosis (1) Altered mental status Is this a current diagnosis for this admission?: Yes Summary: 06/03/2018-patient going to be admitted for altered mental status with high ammonia levels and he has history of liver cirrhosis. Altered mental status most likely secondary to liver cirrhosis causing hepatic encephalopathy. Patient is going to be in the telemetry. We are going to give a p.o. lactulose. To restart his home medications. To check his ammonia levels again tomorrow. Plan to do the CT abdominal pelvis to get a bit better picture of the ascites and because of the presence of umbilical hernia rule out any strangulation. Aspiration fall seizure precautions will be requested. In the ER patient was agitated he was given lorazepam and IV going to continue IV lorazepam every 6 as needed for agitation. Prophylaxis and DVT prophylaxis will be provided. pt will be admitted as inpatient. 06/04/2018-admitted for altered mental status ..ammonia level went up to 124. to repeat ammonia level and give soap lisandra enema to give diarrhea pt is not talking meds by mouth. 06/05/2018-patient was admitted with altered mental status most likely secondary to hepatic encephalopathy his ammonia level is 124 yesterday slightly improved to 122 today he is not taking oral lactulose as requested. He is more alert more awake today hopefully will continue take lactulose. I discussed the plan of care with patient's daughter she is happy with the care so far. 06/06/2018-patient was admitted with altered mental status most likely secondary h epatic encephalopathy on admission ammonia level is 110 increased to 124 although slowly weaned down. Today ammonia level is 21.4 normal. Patient mental status is significantly improved. 06/07/2018-patient was admitted with altered mental status most likely secondary to hepatic encephalopathy initial ammonia level came back around 110 and it was improved to 21.4 yesterday. Ammonia level is 12. Mental status is resolved patient alert oriented communicating very well. 06/08/2018 altered mental status secondary to hepatic encephalopathy is resolved. Latest ammonia level is 12. 06/09/2018-altered mental status/acute encephalopathy secondary to hepatic encephalopathy is resolved. 06/10/2018-patient was admitted with altered mental status/acute encephalopathy most likely secondary to hepatic encephalopathy with ammonia levels of 119 at the time of admission altered mental status slowly and gradually resolved during the hospital stay latest ammonia level is 12. Today patient is alert and awake oriented communicating well expressing desire to [facility] the [facility]. (2) Ascites Is this a current diagnosis for this admission?: No Summary: 06/03/2018-patient has history of liver cirrhosis with ascites we going to do the CT abdomen pelvis to see if the ascitic fluid is significant enough to do a tap. Patient is on p.o. Lasix at home/jail will continue diuretics but I am going to switch her to IV Lasix. 06/04/2018-ultrasound done today shows ascites is improved compared to the CT scan that was done yesterday. Plan is to continue the IV Lasix therapy. 06/05/2018-the ascites much improved compared to admission findings. CT abdomen initially shows large amount of ascitic fluid follow-up ultrasound shows significant decrease in the ascitic fluid . Plan is to continue the IV Lasix. 06/06/2018-ascites is significantly improved during this hospital stay. We are going to put him on fluid restriction 1500 mL/day. 06/07/2018-ascites is significantly improved during the hospital stay because of the IV Lasix therapy and spironolactone. Plan is to continue the present management as per the patient request fluid restriction was increased to 1700 mL/day. 06/08/2018-patient came in with massive ascites he is on IV Lasix and spironolactone as a disease relatively controlled. 06/09/2018-patient came in with a large amount of ascitic fluid with Lasix it was improved. But the patient is refusing to add her to fluid restrictions. 05/13/2018-on admission CT scan shows significant amount of ascitic fluid with Lasix and spironolactone decrease in the ascites as documented with ultrasound of the abdomen. No complications during the hospital stay. (3) Hypokalemia Is this a current diagnosis for this admission?: Yes Summary: 06/03/2018-patient came in with potassium 3.4 hypokalemia be going to put him on a K rider 40 mEq IV daily. To recheck the labs tomorrow. 06/04/2018 potassium level is 3.7 hypokalemia resolved he is getting potassium IV supplementation. 06/05/2018-latest potassium is 3.7 plan is to continue potassium supplementation. 06/06/2018-patient potassium level is 3.1 to start him on potassium 40 mg p.o. twice a day. Recheck his potassium levels tomorrow. 06/07/2018-patient's potassium level today is 4.1 hypokalemia is resolved. 06/08/2018-potassium level today is 4.1 patient is on potassium supplementations plan is to continue the present management. 06/09/2018-patient potassium level is 4.1 today he is on potassium supplementation hypokalemia is resolved plan is to recheck his potassium levels tomorrow. 06/10/2018-latest potassium level is 4.1 hypokalemia is resolved. hypo Kalemia most likely secondary to poor oral intake. (4) Macrocytic anemia Is this a current diagnosis for this admission?: No Summary: 06/03/2018-patient admission hemoglobin is 9.7 anemia of chronic disease most likely secondary to liver cirrhosis. plan is to check daily cbc 06/04/2018-patient's hemoglobin is 9.7 stable he has anemia of chronic disease most likely secondary to liver cirrhosis. 06/05/2018-patient hemoglobin is 9.7 stable. Anemia of chronic disease most likely secondary to chronic liver failure. 06/06/2018-patient hemoglobin is 9.8 stable anemia of chronic disease most likely secondary to chronic liver cirrhosis. 06/07/2018-patient's hemoglobin is 10.5 stable. Most likely secondary to liver cirrhosis. 06/08/2018-patient's hemoglobin is 10.5 stable. 06/09/2018-patient's hemoglobin today is 10.5. Stable. 11/02/2018-patient is refusing lab work for the last 2 days latest hemoglobin is 10.5 stable. Patient has anemia of chronic disease most likely secondary to liver failure. (5) Coagulopathy Is this a current diagnosis for this admission?: No (6) Thrombocytopenia Is this a current diagnosis for this admission?: No Summary: 06/04/2018-patient platelet count is 109 today most likely secondary to liver failure. 06/05/2018 latest platelet count is 109. Thrombocytopenia most likely secondary to chronic liver failure. Platelet count today is 116 slight improvement low platelet count most likely secondary to liver failure. 06/08/2018 platelet count is 116 thrombocytopenia most likely secondary to chronic liver cirrhosis. 05/13/2018-latest platelet count is 116, thrombocytopenia most likely secondary to underlying liver failure. - Additional Information Resuscitation Status: Full Code Discharge Diet: Cardiac Discharge Activity: Activity As Tolerated Home Medications: Cyanocobalamin (Vitamin B-12) [Vitamin B-12 100 mcg Tablet] 100 mg PO DAILY 05/17/18 Folic Acid [Folvite 1 mg Tablet] 1 mg PO DAILY 05/17/18 Furosemide [Lasix 40 mg Tablet] 60 mg PO DAILY 05/17/18 Multivit with Minerals/Lutein [Vitrum Senior Tablet] 1 each PO DAILY 05/17/18 Ranitidine HCl [Zantac 150 mg Tablet] 150 mg PO BID 05/17/18 Spironolactone [Aldactone 25 mg Tablet] 150 mg PO BID 05/17/18 Tamsulosin HCl [Flomax 0.4 mg Cap.sr] 0.4 mg PO QPM 05/17/18 Nicotine [Nicoderm 14 mg/24 Hr Transdermal Patch] 1 patch TD DAILY 06/03/18 Nystatin [Mycostatin Topical Powder 15 gm] 1 applic TP BID 06/03/18 Pantoprazole Sodium [Protonix] 40 mg PO BID 06/03/18 Thiamine HCl [Thiamine 100 mg Tablet] 100 mg PO DAILY 06/03/18 Acetaminophen [Tylenol 325 mg Tablet] 325 mg PO Q4HP PRN tablet 06/10/18 Albuterol Sulfate [Proair HFA Inhalation Aerosol 8.5 gm MDI] 1 puff IH Q4HP PRN hfa.aer.ad 06/10/18 Carvedilol [Coreg 3.125 mg Tablet] 3.125 mg PO Q12 tablet 06/10/18 Famotidine [Pepcid 20 mg Tablet] 20 mg PO Q12 tablet 06/10/18 Ferrous Sulfate [Feosol 325 mg Tablet] 325 mg PO BID tablet 06/10/18 Lactulose [Cephulac Syrup 20 gm/30 ml Udcup] 30 gm PO Q6 udc 06/10/18 Potassium Chloride [Klor-Con 10 Meq Capsule ER] 40 meq PO Q12 capsule.er 06/10/18 Thiamine HCl [Thiamine 100 mg Tablet] 100 mg PO QPM tablet 06/10/18 History of Present Illness Admission Date/PCP: 06/03/18 17:17 TARUN PATEL MD History of Present Illness: JEROME ALVAREZ is a 58 year old male 58-year-old male jail patient with history of liver cirrhosis and ascites brought to the emergency room for altered mental status ammonia level is found to be 110 I try to look into the ER physician documentation is not even a sentence documented in the chart a call Dr. Portillo to see is any reason for not to document the ER physician notes she started screaming and yelling at me as if I am doing a mistake I try to talk to her in a professional way and she is very disrespectful and professional in her behavior towards me I told her I am going to reported to my hospitalist director Dr. curtis to look into this chart Dr. Collazo response is I can compliant to anybody she does not care. Physical Exam Vital Signs: Temp Pulse Resp BP Pulse Ox 98.8 F 72 20 107/49 L 98 06/10/18 11:39 06/10/18 11:39 06/10/18 11:39 06/10/18 11:39 06/10/18 11:39 Intake & Output 06/09/18 06/10/18 06/11/18 06:59 06:59 06:59 Intake Total 2872 2161 Output Total 2050 2150 Balance 822 11 Weight 53.1 kg 53 kg 53 kg General appearance: PRESENT: no acute distress Head exam: PRESENT: atraumatic Eye exam: PRESENT: PERRLA Mouth exam: PRESENT: dry mucosa Neck exam: ABSENT: carotid bruit, JVD, lymphadenopathy, thyromegaly Respiratory exam: PRESENT: decreased breath sounds Cardiovascular exam: PRESENT: tachycardia GI/Abdominal exam: PRESENT: ascites, normal bowel sounds, soft. ABSENT: tenderness Extremities exam: PRESENT: full ROM. ABSENT: calf tenderness, clubbing, pedal edema Neurological exam: PRESENT: alert, awake, oriented to person, oriented to place, oriented to time, oriented to situation, CN II-XII grossly intact. ABSENT: motor sensory deficit Psychiatric exam: PRESENT: appropriate affect, normal mood. ABSENT: homicidal ideation, suicidal ideation Results Laboratory Results: 06/07/18 06:19 06/07/18 06:19 06/03/18 06/03/18 06/03/18 13:20 13:20 23:32 Creatine Kinase 128 125 CK-MB (CK-2) 3.58 NT-Pro-B Natriuret Pep 06/03/18 06/04/18 06/04/18 23:32 05:39 05:39 Creatine Kinase 120 CK-MB (CK-2) 2.48 2.33 NT-Pro-B Natriuret Pep 391 Impressions: Abdomen CT 06/03/18 00:00 IMPRESSION: Large amount of ascites. Findings consistent with cirrhosis and portal venous hypertension- numerous varices. Head CT 06/03/18 00:00 IMPRESSION: No acute intracranial findings. Left maxillary and sphenoid sinusitis. EVIDENCE OF ACUTE STROKE: NO. Chest X-Ray 06/03/18 17:19 IMPRESSION: NO ACUTE FINDINGS. Abdomen Ultrasound 06/04/18 00:00 IMPRESSION: 1. Mild volume ascites in the abdomen. Qualifiers - * PATIENT BEING DISCHARGED WITH ANY OF THE FOLLOWING DIAGNOSIS: No VTE patient discharged on overlapping Therapy?: No
== END 2018-06-10 14:30 | DRG 433 ==
LOC: ER 11:32 → EH 17:02 → OBSVTOIN 17:17 → UNDOADMOB 17:17 → INTOOBSV 17:17 → EH 17:17 → 4S 22:12
PROVIDERS: ADMIT Internal Medicine; ATTEND Internal Medicine
DX: K70.31 Alcoholic cirrhosis of liver with ascites (principal); E87.1 Hypo-osmolality and hyponatremia; K72.90 Hepatic failure, unspecified without coma; K42.9 Umbilical hernia without obstruction or gangrene; E87.6 Hypokalemia; D63.8 Anemia in other chronic diseases classified elsewhere; D69.59 Other secondary thrombocytopenia; I50.9 Heart failure, unspecified; E78.5 Hyperlipidemia, unspecified; I11.0 Hypertensive heart disease with heart failure; F32.9 Major depressive disorder, single episode, unspecified; Z88.0 Allergy status to penicillin; Z88.2 Allergy status to sulfonamides; Z91.010 Allergy to peanuts; Z79.899 Other long term (current) drug therapy; Z87.891 Personal history of nicotine dependence; Z82.61 Family history of arthritis; Z82.49 Family history of ischemic heart disease and other diseases of the circulatory system; Z80.9 Family history of malignant neoplasm, unspecified
CPT/HCPCS: 36415; 70450; 71045; 74150; 76705; 80048; 80053; 80076; 80307; 81001; 82140; 82550; 82553; 83735; 83880; 84443; 85025; 85027; 85610; 93005; 93010; 96372; 99285; A9270-GY; J1940; J2060; J3475; J3480; J3490; J7030

== ENCOUNTER 2018-06-23 17:31 | Inpatient (IN) | payer MEDICARE, MEDICAID ==
[2018-06-23 18:13] LABS: ABSOLUTE EOSINOPHILS # (AUTO) 0.3 10^3/uL (0.0-0.6); ABSOLUTE LYMPHOCYTES (AUTO) 1.4 10^3/uL (0.5-4.7); ABSOLUTE MONOCYTES (AUTO) 0.6 10^3/uL (0.1-1.4); ABSOLUTE NEUT (AUTO) 5.7 10^3/uL (1.7-8.2); BASOPHILS % (AUTO) 0.4 % (0-2); EOSINOPHILS % (AUTO) 3.9 % (0-6); HEMATOCRIT 30.6 % (37.9-51.0); LYMPHOCYTES % (AUTO) 16.8 % (13-45); MEAN CORPUSCULAR HEMOGLOBIN 37.1 pg (27.0-33.4); MEAN CORPUSCULAR HGB CONC 36.1 g/dL (32.0-36.0); MEAN CORPUSCULAR VOLUME 103 fl (80-97); MONOCYTES % (AUTO) 7.8 % (3-13); PLATELET COUNT 179 10^3/uL (150-450); RED BLOOD COUNT 2.97 10^6/uL (4.35-5.55); RED CELL DISTRIBUTION WIDTH 20.5 % (11.5-14.0); SEGMENTED NEUTROPHILS % (AUTO) 71.1 % (42-78); TOTAL CELLS COUNTED % (AUTO) 100 %; WHITE BLOOD COUNT 8.1 10^3/uL (4.0-10.5)
[2018-06-23 19:13] LABS: ALANINE AMINOTRANSFERASE 58 U/L (21-72); ALBUMIN 3.2 g/dL (3.5-5.0); ALKALINE PHOSPHATASE 180 U/L (38-126); ANION GAP 14 (5-19); ASPARTATE AMINO TRANSFERASE 80 U/L (17-59); BILIRUBIN,DIRECT 2.7 mg/dL (0.0-0.4); BLOOD UREA NITROGEN 26 mg/dL (7-20); CALCIUM 9.5 mg/dL (8.4-10.2); CARBON DIOXIDE 18 mmol/L (22-30); CHLORIDE 90 mmol/L (98-107); GLUCOSE 81 mg/dL (75-110); SODIUM 121.9 mmol/L (137-145); TOTAL PROTEIN 8.3 g/dL (6.3-8.2)
[2018-06-23] MEDS ORDERED: LACTULOSE SYRUP 20 GM/30 ML UDCUP PO ONE (19:29)
--- NOTE | 2018-06-23 19:34 | ER Document Report ---
ED General - General Chief Complaint: Altered Mental Status Stated Complaint: ALTERED MENTAL STATUS Time Seen by Provider: 06/23/18 18:18 Primary Care Provider: TARUN PATEL MD [Primary Care Provider] - Follow up as needed Cannot obtain history due to: Altered mental status Notes: Patient is a 58-year-old male with a past medical history of hepatic encephalopathy, chronic alcoholic induced cirrhosis, apparently oriented only to person at baseline who presents from the nursing facility due to apparently being more altered than that stated baseline. However, of note the patient does know his name is lying in the bed calmly. The patient apparently had labs that demonstrated high potassium as well as elevated ammonia. He was referred due to apparently becoming more aggressive with staff and less redirectable. Patient is not able to provide any additional history. Has a history of same in the past. I am unable to ascertain whether or not the patient has been taking all medications as prescribed. TRAVEL OUTSIDE OF THE [place] IN LAST 30 DAYS: No - Related Data Allergies/Adverse Reactions: peanut Allergy (Verified 04/02/18 12:12) Penicillins Allergy (Verified 04/02/18 12:12) Sulfa (Sulfonamide Antibiotics) Allergy (Verified 04/02/18 12:12) Past Medical History - General Information source: Transfer Record, [facility] Records Cannot obtain history due to: Altered mental status - Social History Smoking Status: Current Every Day Smoker Frequency of alcohol use: Heavy Drug Abuse: None [facility] with: [facility] Family History: Arthritis, CAD, Hyperlipidemia, Hypertension, Malignancy Patient has suicidal ideation: No Patient has homicidal ideation: No - Past Medical History Cardiac Medical History: Reports: Hx Congestive Heart Failure, Hx Hypercholesterolemia, Hx Hypertension Renal/ Medical History: Denies: Hx Peritoneal Dialysis GI Medical History: Reports: Hx Cirrhosis, Hx Gastroesophageal Reflux Disease Psychiatric Medical History: Reports: Hx Depression Past Surgical History: Reports: Other - Past surgical history is not available - Immunizations Immunizations up to date: Yes Hx Diphtheria, Pertussis, Tetanus Vaccination: Yes Review of Systems - Review of Systems -: Yes ROS unobtainable due to patient's medical condition Physical Exam - Vital signs Vitals: Resp BP Pulse Ox 13 126/60 H 100 06/23/18 17:34 06/23/18 17:34 06/23/18 17:34 Interpretation: Normal Notes: PHYSICAL EXAMINATION: GENERAL: Appears much older than stated age. Frail, cachectic, lying in a position HEAD: Atraumatic, normocephalic. EYES: Pupils equal round and reactive to light, extraocular movements intact, sclera anicteric, conjunctiva are normal. ENT: nares patent, oropharynx clear without exudates. Moderately dry mucous membranes. NECK: Normal range of motion, supple without lymphadenopathy LUNGS: Breath sounds clear to auscultation bilaterally and equal. No wheezes rales or rhonchi. HEART: Regular rate and rhythm without murmurs ABDOMEN: Soft, protuberant abdomen, no focal areas of tenderness, normoactive bowel sounds. No guarding, no rebound. No masses appreciated. EXTREMITIES: no pitting or edema. No cyanosis. NEUROLOGICAL: No focal neurological deficits. Moves all extremities spontaneo usly and on command. PSYCH: Oriented to name only SKIN: Extremely dry, flaky skin throughout Course - Re-evaluation Re-evalutation: 06/23/18 19:28 Patient presents with concerns of staff at facility of increasing altered mental status and hyperkalemia. Patient is chronically ill in appearance, states much older than stated age. Resting comfortably. Vitals within acceptable limits. Initial ammonia level noted to be elevated at 80.8. Lactulose has been initiated. Awaiting repeat labs. 06/23/18 20:58 Patient's potassium is noted to be elevated at 6. No significant EKG changes with this. The ammonia level is elevated at 80.8. Lactulose, insulin, glucose have been administered. I discussed with Dr. Altamirano patient for admission. - Vital Signs Vital signs: Temp Pulse Resp BP Pulse Ox 97.5 F 11 L 120/71 97 06/23/18 17:52 06/23/18 19:02 06/23/18 19:02 06/23/18 19:02 - Laboratory Result Diagrams: 06/23/18 17:49 06/23/18 18:29 Laboratory results interpreted by me: 06/23/18 06/23/18 06/23/18 17:49 17:49 18:00 RBC 2.97 L Hgb 11.0 L Hct 30.6 L MCV 103 H MCH 37.1 H MCHC 36.1 H RDW 20.5 H PT 17.6 H Sodium Potassium Chloride Carbon Dioxide BUN Total Bilirubin Direct Bilirubin AST Alkaline Phosphatase Ammonia 80.3 H Total Protein Albumin 06/23/18 18:29 RBC Hgb Hct MCV MCH MCHC RDW PT Sodium 121.9 L Potassium 6.0 H* Chloride 90 L Carbon Dioxide 18 L BUN 26 H Total Bilirubin 6.0 H Direct Bilirubin 2.7 H AST 80 H Alkaline Phosphatase 180 H Ammonia Total Protein 8.3 H Albumin 3.2 L - Diagnostic Test Radiology reviewed: Image reviewed, Reports reviewed Radiology results interpreted by me: 06/23/18 20:58 Chest x-ray: No acute infiltrate pneumothorax - EKG Interpretation by Me Additional EKG results interpreted by me: 06/23/18 20:58 Sinus rhythm, rate 62. No peak T waves. QTC 480. Discharge - Discharge Clinical Impression: Hepatic failure due to alcoholism, End stage liver disease, Hyperkalemia Altered mental status Qualifiers: Altered mental status type: disorientation Qualified Code(s): R41.0 - Disorientation, unspecified Referrals: TARUN PATEL MD [Primary Care Provider] - Follow up as needed
[2018-06-23 19:40] LABS: ALCOHOL < 10 mg/dL (NONE DETECTED)
[2018-06-23 19:49] LABS: INTERNATIONAL RATION (INR) 1.38; PROTHROMBIN TIME 17.6 SEC (11.4-15.4)
[2018-06-23] MEDS ORDERED: INSULIN REG, HUMAN 100 UNIT/ML 3 ML VIAL (PYX) IV ONE (20:55)
[2018-06-23] MEDS ORDERED: DEXTROSE 50%-WATER 25 GM/50 ML DISP.SYRIN IV ONE (20:55)
[2018-06-23] MEDS ORDERED: FOLIC ACID 1 MG TABLET PO ONE (20:59)
[2018-06-23] MEDS ORDERED: NORMAL SALINE 1000 ML 1,000 ML IV ONE (20:59)
[2018-06-23] MEDS ORDERED: FUROSEMIDE INJ/PF 20 MG/2 ML SDV IV ONE (20:59)
[2018-06-23] MEDS ORDERED: THIAMINE HCL 100 MG TABLET PO ONE (20:59)
[2018-06-23] MEDS ORDERED: LACTULOSE SYRUP 20 GM/30 ML UDCUP PR ONE (20:59)
[2018-06-23] MEDS ORDERED: ALBUTEROL SULFATE HFA (90 MCG/PUFF) 200 PUFF/8.5 GM MDI IH PRN (21:00)
[2018-06-23] MEDS ORDERED: IPRATROPIUM/ALBUTEROL 0.5-2.5 MG/3 ML AMPUL NEB PRN (21:01)
[2018-06-23] MEDS ORDERED: MAG HYDROX/AL HYDROX/SIMETH SUSP 30 ML UDCUP PO PRN (21:01)
[2018-06-23] MEDS ORDERED: NORMAL SALINE 1000 ML 1,000 ML IV SCH (21:15)
--- NOTE | 2018-06-23 21:22 | EKG REPORT ---
SEVERITY:- BORDERLINE ECG - SINUS RHYTHM BORDERLINE T ABNORMALITIES, ANT-LAT LEADS BORDERLINE PROLONGED QT INTERVAL : Confirmed by: Celeste Browning MD 23-Jun-2018 21:22:07
[2018-06-23 21:42] LABS: ABSOLUTE RETICS # 0.082 10^6/uL (0.028-0.122); RETICULOCYTE COUNT (AUTO) 2.76 % (0.66-2.85)
[2018-06-23 21:53] LABS: IRON(TIBC) 302.5 ug/dL (49-181)
[2018-06-23] MEDS: HEPARIN SOD (PORCINE) 5,000 UNIT/ML 1 ML SYRINGE SUBCUT SCH (22:09)
[2018-06-23] MEDS: CARVEDILOL 3.125 MG TABLET PO SCH (22:10)
[2018-06-23 23:01] LABS: FOLATE > 20.00 ng/mL (>2.76)
[2018-06-24] MEDS ORDERED: FUROSEMIDE INJ/PF 40 MG/4 ML SDV ONE (00:27)
[2018-06-24] MEDS: LACTULOSE SYRUP 20 GM/30 ML UDCUP PO SCH ×4 (00:50→17:33)
[2018-06-24] MEDS ORDERED: FUROSEMIDE INJ/PF 40 MG/4 ML SDV IV ONE (01:00)
[2018-06-24] MEDS ORDERED: NORMAL SALINE 1000 ML 2,000 ML IV ONE (01:15)
[2018-06-24] MEDS ORDERED: NORMAL SALINE 1000 ML 1,000 ML IV SCH (01:30)
[2018-06-24 02:10] LABS: ANION GAP 10 (5-19); BLOOD UREA NITROGEN 24 mg/dL (7-20); CALCIUM 9.2 mg/dL (8.4-10.2); CARBON DIOXIDE 18 mmol/L (22-30); CHLORIDE 97 mmol/L (98-107)
[2018-06-24 02:27] LABS: GLUCOSE 35 mg/dL (75-110)
[2018-06-24 02:29] LABS: POTASSIUM 4.3 mmol/L (3.6-5.0)
[2018-06-24] MEDS ORDERED: DEXTROSE 50%-WATER 25 GM/50 ML DISP.SYRIN IV PRN (03:54)
--- NOTE | 2018-06-24 06:00 | PDOC H&P ---
History of Present Illness Admission Date/PCP: 06/23/18 21:26 TARUN PATLE MD Patient complains of: Altered mental status History of Present Illness: JEROME ALVAREZ is a 58 year old male with history of alcohol related hepatic cirrhosis with encephalopathy malnutrition and tobacco dependence who is a [facility] was noted by staff to be altered beyond his baseline and brought to the emergency room for evaluation where he is found to have hy perkalemia of 6 without peak T waves, hyponatremia and hypoglycemia. He receives dextrose and insulin then referred to the hospitalist for admission. Patient is unable to provide meaningful history is responding to questions with one-word answers in no acute distress. Past Medical History Cardiac Medical History: Reports: Congestive Heart Failure, Hyperlipidema, Hypertension GI Medical History: Reports: Cirrhosis, Gastroesophageal Reflux Disease Psychiatric Medical History: Reports: Alcohol Dependency, Depression, Tobacco Dependency Hematology: Reports: Anemia Past Surgical History Past Surgical History: Reports: Other - Past surgical history is not available Social History Information Source: Patient Lives with: Assisted Smoking Status: Current Every Day Smoker Frequency of Alcohol Use: Heavy Drugs: None - Advance Directive Resuscitation Status: Full Code Family History Family History: Arthritis, CAD, Hyperlipidemia, Hypertension, Malignancy Parental Family History Reviewed: Yes Children Family History Reviewed: Yes Sibling(s) Family History Reviewed.: Yes Medication/Allergy Home Medications: Acetaminophen [Tylenol 325 mg Tablet] 325 mg PO Q4HP PRN 06/23/18 Albuterol Sulfate [Proair HFA Inhalation Aerosol 8.5 gm MDI] 1 puff IH Q4HP PRN 06/23/18 Carvedilol [Coreg 3.125 mg Tablet] 3.125 mg PO Q12 06/23/18 Cyanocobalamin (Vitamin B-12) [Vitamin B-12 1000 mcg Tablet] 1,000 mcg PO DAILY 06/23/18 Famotidine [Pepcid 20 mg Tablet] 20 mg PO Q12 06/23/18 Ferrous Sulfate [Feosol 325 mg Tablet] 325 mg PO TID 06/23/18 Folic Acid [Folvite 1 mg Tablet] 1 mg PO DAILY 06/23/18 Furosemide [Lasix 40 mg Tablet] 60 mg PO DAILY 06/23/18 Lactulose [Cephulac Syrup 20 gm/30 ml Udcup] 30 gm PO Q6HP PRN 06/23/18 Multivitamin [Multiple Vitamins] 1 tab PO DAILY 06/23/18 Nicotine [Nicoderm 14 mg/24 Hr Transdermal Patch] 14 mg TD DAILY 06/23/18 Nystatin 1 applic TOP BID 06/23/18 Pantoprazole Sodium [Protonix [address] Tablet] 40 mg PO BID 06/23/18 Potassium Chloride [Klor-Con M20] 40 meq PO Q12 06/23/18 Ranitidine HCl [Zantac 150 mg Tablet] 150 mg PO BID 06/23/18 Spironolactone [Aldactone 25 mg Tablet] 150 mg PO BID 06/23/18 Tamsulosin HCl [Flomax 0.4 mg Cap.sr] 0.4 mg PO QPM 06/23/18 Thiamine HCl [Thiamine 100 mg Tablet] 100 mg PO Q12 06/23/18 Allergies/Adverse Reactions: peanut Allergy (Verified 04/02/18 12:12) Penicillins Allergy (Verified 04/02/18 12:12) Sulfa (Sulfonamide Antibiotics) Allergy (Verified 04/02/18 12:12) Review of Systems ROS unobtainable: Due to mental status Physical Exam Vital Signs: Temp Pulse Resp BP Pulse Ox 97.2 F 52 L 20 93/66 L 100 06/24/18 01:34 06/24/18 02:00 06/24/18 01:34 06/24/18 01:34 06/24/18 01:34 Intake & Output 06/22/18 06/23/18 06/24/18 11:59 11:59 11:59 Intake Total 3000 Balance 3000 Weight 51.4 kg General appearance: PRESENT: disheveled, thin, other - Cachectic with temporal wasting and chronically ill-appearing much older than stated age. ABSENT: well- developed, well-nourished Head exam: PRESENT: atraumatic, normocephalic Eye exam: PRESENT: conjunctiva pink, EOMI, PERRLA. ABSENT: scleral icterus Ear exam: PRESENT: normal external ear exam Mouth exam: PRESENT: dry mucosa. ABSENT: laceration, moist Neck exam: ABSENT: carotid bruit, JVD, lymphadenopathy, thyromegaly Respiratory exam: PRESENT: clear to auscultation michelle. ABSENT: rales, rhonchi, wheezes Cardiovascular exam: PRESENT: RRR. ABSENT: diastolic murmur, rubs, systolic murmur Pulses: PRESENT: normal dorsalis pedis pul Vascular exam: PRESENT: normal capillary refill GI/Abdominal exam: PRESENT: normal bowel sounds, soft, other - Umbilical hernia reducible. ABSENT: distended, guarding, mass, organolmegaly, rebound, tenderness Rectal exam: PRESENT: deferred Extremities exam: PRESENT: full ROM, +1 edema. ABSENT: calf tenderness, club eri, pedal edema, tenderness Neurological exam: PRESENT: alert, altered, oriented to person, CN II-XII grossly intact. ABSENT: oriented to time, oriented to situation, reflexes normal Psychiatric exam: PRESENT: appropriate affect, normal mood. ABSENT: homicidal ideation, suicidal ideation Skin exam: PRESENT: dry, intact, warm. ABSENT: cyanosis, rash Results Laboratory Results: 06/23/18 17:49 06/24/18 01:33 06/23/18 06/23/18 06/23/18 17:49 17:49 18:00 WBC 8.1 RBC 2.97 L Hgb 11.0 L Hct 30.6 L MCV 103 H MCH 37.1 H MCHC 36.1 H RDW 20.5 H Plt Count 179 Seg Neutrophils % 71.1 Lymphocytes % 16.8 Monocytes % 7.8 Eosinophils % 3.9 Basophils % 0.4 Absolute Neutrophils 5.7 Absolute Lymphocytes 1.4 Absolute Monocytes 0.6 Absolute Eosinophils 0.3 Absolute Basophils 0.0 Retic Count (auto) Absolute Retic Sodium Cancelled Potassium Cancelled Chloride Cancelled Carbon Dioxide Cancelled Anion Gap Cancelled BUN Cancelled Creatinine Cancelled Est GFR ( Amer) Cancelled Est GFR (Non-Af Amer) Cancelled Glucose Cancelled Calcium Cancelled Magnesium Cancelled Iron TIBC % Saturation Ferritin Total Bilirubin Cancelled AST Cancelled ALT Cancelled Alkaline Phosphatase Cancelled Ammonia 80.3 H Total Protein Cancelled Albumin Cancelled Vitamin B12 Folate 06/23/18 06/23/18 06/23/18 18:29 18:29 18:29 WBC RBC Hgb Hct MCV MCH MCHC RDW Plt Count Seg Neutrophils % Lymphocytes % Monocytes % Eosinophils % Basophils % Absolute Neutrophils Absolute Lymphocytes Absolute Monocytes Absolute Eosinophils Absolute Basophils Retic Count (auto) 2.76 Absolute Retic 0.082 Sodium 121.9 L Potassium 6.0 H* Chloride 90 L Carbon Dioxide 18 L Anion Gap 14 BUN 26 H Creatinine 1.20 Est GFR ( Amer) > 60 Est GFR (Non-Af Amer) > 60 Glucose 81 Calcium 9.5 Magnesium 2.3 Iron 302.5 H TIBC 373 % Saturation 81 Ferritin 200.00 Total Bilirubin 6.0 H AST 80 H ALT 58 Alkaline Phosphatase 180 H Ammonia Total Protein 8.3 H Albumin 3.2 L Vitamin B12 > 1000.0 H Folate > 20.00 06/24/18 01:33 WBC RBC Hgb Hct MCV MCH MCHC RDW Plt Count Seg Neutrophils % Lymphocytes % Monocytes % Eosinophils % Basophils % Absolute Neutrophils Absolute Lymphocytes Absolute Monocytes Absolute Eosinophils Absolute Basophils Retic Count (auto) Absolute Retic Sodium 125.0 L Potassium 4.3 D Chloride 97 L Carbon Dioxide 18 L Anion Gap 10 BUN 24 H Creatinine 1.03 Est GFR ( Amer) > 60 Est GFR (Non-Af Amer) > 60 Glucose 35 L* Calcium 9.2 Magnesium Iron TIBC % Saturation Ferritin Total Bilirubin AST ALT Alkaline Phosphatase Ammonia Total Protein Albumin Vitamin B12 Folate Assessment and Plan - Diagnosis (1) End stage liver disease Is this a current diagnosis for this admission?: Yes Plan: Unclear p.o. intake, elevated ammonia level, lactulose p.o. and [place]. Follow-up chemistry, supportive measures. Patient requires hospice (2) Acute encephalopathy Is this a current diagnosis for this admission?: Yes Plan: Multifactorial secondary to #1 hypoglycemia as the patient is unable to consume his nutritional needs. (3) Hypoglycemia Is this a current diagnosis for this admission?: Yes Plan: Unable to meet nutritional needs. Requires hospice dextrose as needed (4) Hyperkalemia Is this a current diagnosis for this admission?: Yes Plan: Secondary to noncompliance with lactulose. Insulin and dextrose ordered, albuterol, calcium gluconate, follow-up chemistry. - Time Time Spent with patient: 25-34 minutes - Inpatient Certification Medical Necessity: Need Close Monitoring Due to Risk of Patient Decompensation
[2018-06-24] MEDS: HEPARIN SOD (PORCINE) 5,000 UNIT/ML 1 ML SYRINGE SUBCUT SCH ×3 (06:27→22:48)
[2018-06-24 06:49] LABS: ABSOLUTE EOSINOPHILS # (AUTO) 0.2 10^3/uL (0.0-0.6); ABSOLUTE MONOCYTES (AUTO) 0.5 10^3/uL (0.1-1.4); ABSOLUTE NEUT (AUTO) 5.4 10^3/uL (1.7-8.2); BASOPHILS % (AUTO) 0.6 % (0-2); EOSINOPHILS % (AUTO) 2.2 % (0-6); HEMATOCRIT 28.7 % (37.9-51.0); HEMOGLOBIN 10.2 g/dL (13.5-17.0); LYMPHOCYTES % (AUTO) 14.2 % (13-45); MEAN CORPUSCULAR HGB CONC 35.7 g/dL (32.0-36.0); MEAN CORPUSCULAR VOLUME 104 fl (80-97); PLATELET COUNT 122 10^3/uL (150-450); RED BLOOD COUNT 2.77 10^6/uL (4.35-5.55); RED CELL DISTRIBUTION WIDTH 20.4 % (11.5-14.0); TOTAL CELLS COUNTED % (AUTO) 100 %; WHITE BLOOD COUNT 7.1 10^3/uL (4.0-10.5)
[2018-06-24 07:24] LABS: ALANINE AMINOTRANSFERASE 50 U/L (21-72); ALBUMIN 2.8 g/dL (3.5-5.0); ALKALINE PHOSPHATASE 150 U/L (38-126); ANION GAP 12 (5-19); ASPARTATE AMINO TRANSFERASE 74 U/L (17-59); BILIRUBIN,DIRECT 2.6 mg/dL (0.0-0.4); BILIRUBIN,TOTAL 5.2 mg/dL (0.2-1.3); BLOOD UREA NITROGEN 23 mg/dL (7-20); CARBON DIOXIDE 17 mmol/L (22-30); CHLORIDE 95 mmol/L (98-107); GLUCOSE 117 mg/dL (75-110); POTASSIUM 4.5 mmol/L (3.6-5.0); TOTAL PROTEIN 7.7 g/dL (6.3-8.2)
[2018-06-24] MEDS: CARVEDILOL 3.125 MG TABLET PO SCH ×2 (09:48→22:48)
[2018-06-24] MEDS: THIAMINE HCL 100 MG TABLET PO SCH (09:55)
[2018-06-24] MEDS ORDERED: IPRATROPIUM/ALBUTEROL 0.5-2.5 MG/3 ML AMPUL NEB PRN (10:00)
[2018-06-24] MEDS ORDERED: CYANOCOBALAMIN 100 MG PO SCH (10:00)
[2018-06-24] MEDS: TAMSULOSIN HCL 0.4 MG CAP.SR.24H PO SCH (17:34)
--- NOTE | 2018-06-24 21:29 | PDOC PROGRESS REPORT ---
Subjective Progress Note for:: 06/24/18 Subjective:: The patient is resting in his bed. He really is not oriented at this point. A good review of systems could not be obtained. There are no family members at the bedside Reason For Visit: HYPERKALEMIA,AMS,SBP Physical Exam Vital Signs: Temp Pulse Resp BP Pulse Ox 98.6 F 94 18 111/53 L 96 06/24/18 20:00 06/24/18 20:00 06/24/18 20:00 06/24/18 20:00 06/24/18 20:00 Intake & Output 06/23/18 06/24/18 06/25/18 06:59 06:59 06:59 Intake Total 3000 710 Balance 3000 710 Weight 51.4 kg 51.4 kg General appearance: PRESENT: other - Extremely thin cachectic ill-appearing male. He is in no acute distress. He is acutely confused and not oriented Head exam: PRESENT: other - Bitemporal muscle wasting. Eye exam: PRESENT: conjunctiva pink, EOMI, PERRLA. ABSENT: scleral icterus Mouth exam: PRESENT: moist, tongue midline Respiratory exam: PRESENT: clear to auscultation michelle. ABSENT: rales, rhonchi, wheezes Cardiovascular exam: PRESENT: RRR. ABSENT: diastolic murmur, rubs, systolic mur mur GI/Abdominal exam: PRESENT: other - Thin. Appears to be nontender. Rectal exam: PRESENT: deferred Extremities exam: PRESENT: other - Muscle wasting in all of his extremities. Neurological exam: PRESENT: alert, awake, oriented to person. ABSENT: altered, oriented to time, oriented to situation Psychiatric exam: ABSENT: agitated, homicidal ideation, suicidal ideation Skin exam: PRESENT: dry, intact, warm. ABSENT: cyanosis, rash Results Laboratory Results: 06/24/18 06:23 06/24/18 06:23 06/23/18 06/23/18 06/24/18 18:29 18:29 01:33 WBC RBC Hgb Hct MCV MCH MCHC RDW Plt Count Seg Neutrophils % Lymphocytes % Monocytes % Eosinophils % Basophils % Absolute Neutrophils Absolute Lymphocytes Absolute Monocytes Absolute Eosinophils Absolute Basophils Retic Count (auto) 2.76 Absolute Retic 0.082 Sodium 125.0 L Potassium 4.3 D Chloride 97 L Carbon Dioxide 18 L Anion Gap 10 BUN 24 H Creatinine 1.03 Est GFR ( Amer) > 60 Est GFR (Non-Af Amer) > 60 Glucose 35 L* Calcium 9.2 Iron 302.5 H TIBC 373 % Saturation 81 Ferritin 200.00 Total Bilirubin AST ALT Alkaline Phosphatase Total Protein Albumin Vitamin B12 > 1000.0 H Folate > 20.00 06/24/18 06/24/18 06:23 06:23 WBC 7.1 RBC 2.77 L Hgb 10.2 L Hct 28.7 L MCV 104 H MCH 37.0 H MCHC 35.7 RDW 20.4 H Plt Count 122 L Seg Neutrophils % 76.0 Lymphocytes % 14.2 Monocytes % 7.0 Eosinophils % 2.2 Basophils % 0.6 Absolute Neutrophils 5.4 Absolute Lymphocytes 1.0 Absolute Monocytes 0.5 Absolute Eosinophils 0.2 Absolute Basophils 0.0 Retic Count (auto) Absolute Retic Sodium 124.0 L Potassium 4.5 Chloride 95 L Carbon Dioxide 17 L Anion Gap 12 BUN 23 H Creatinine 1.07 Est GFR ( Amer) > 60 Est GFR (Non-Af Amer) > 60 Glucose 117 H Calcium 9.0 Iron TIBC % Saturation Ferritin Total Bilirubin 5.2 H AST 74 H ALT 50 Alkaline Phosphatase 150 H Total Protein 7.7 Albumin 2.8 L Vitamin B12 Folate Assessment and Plan - Diagnosis (1) Acute encephalopathy Is this a current diagnosis for this admission?: Yes Plan: Patient likely has hepatic encephalopathy. He certainly is not oriented. Continue lactulose. (2) End stage liver disease Is this a current diagnosis for this admission?: Yes Plan: With hepatic encephalopathy. Discussions need to be had with the patient's f amily. At this point it looks like his life expectancy should be somewhat short. He is significantly malnourished (3) Severe protein-calorie malnutrition Is this a current diagnosis for this admission?: Yes Plan: The patient clearly has severe protein calorie malnutrition. Please see nutrition notes and we are following their recommendations. However the patient is so encephalopathic am not sure he will be able to eat at all. Hospital day #1. Patient is a 58 y/o male, re-admitted to [facility]. Patient is from [place]. Patient discussed this morning in rounds, A&O x1. PMHx includes: hepatic encephalopathy, chronic alcohol induced cirrhosis, malnutrition, tobacco. Labs: Hgb 10.2 L, Hct 28.7 L, Na 124 L, Co2 17 L, BUN 23 H, glucose 117, 137, 201 H, total bilirubin 5.2 H, direct bilirubin 2.6 H, AST 74 H, albumin 2.8 L. Medications includes: albuterol, carvedilol, heparin, lactulose, B12, Thiamine. Skin (per nursing assessment): left shoulder stage 1 noted on nursing admission. Usama 15. No GI symptoms noted. Meal intake: has not been established at this time. Weights from previous stays: 06/10/18 53 kg, 06/03/18 67.5 kg, 05/17/18 84.6 kg (some of wt changes noted as potentially r/t fluid changes). Noted consult in for Hospice. Nutrition Diagnosis: Underweight status related to hx malnutrition as evidenced by BMI 18.9 for age. Nutrition Interventions: Prescription: Cardiac diet, Low Potassium Diet, Regular texture, thin liquids Interventions: 1. Meals/Snacks: continue with current diet. 2. Medical Food Supplements: will trial Ensure Clear (237mL provides 240 calories, 8 g protein, 0mg potassium) r/t underweight status, wound healing, and noted malnutrition in H&P. 3. Vitamin/Mineral Supplements: continue with current supplements; B12 and Thiamin. 4. Meal assistance: provide PRN, encourage PO intake. Nutrition Monitoring/Evaluation: 1. Food Intake: continue to monitor and encourage PO intake. 2. Supplement Intake: continue to monitor and encourage intake. 3. Biochemical data, tests, labs: monitor. 4. Nutrition Focused Physical Findings: monitor overall skin integrity. 5. Anthropometric Measurements: Continue to trend wt during hospitalization. 6. Food Preferences: adjust PRN. [ End ] (4) Hyponatremia Is this a current diagnosis for this admission?: Yes Plan: Still significantly low. Will it is improved somewhat since he was admitted. He will have a chemistry panel drawn in the morning. (5) Hyperkalemia Is this a current diagnosis for this admission?: Yes Plan: Resolved (6) Hypoglycemia Is this a current diagnosis for this admission?: Yes Plan: Due to poor p.o. intake and his underlying liver disease. (7) Macrocytic anemia Is this a current diagnosis for this admission?: Yes Plan: Due to his underlying alcohol abuse (8) Thrombocytopenia Is this a current diagnosis for this admission?: Yes Plan: Due to his alcoholic liver disease (9) Full code status Is this a current diagnosis for this admission?: Yes - Time Time Spent with patient: 35 or more minutes - Inpatient Certification Medical Necessity: Other - Inpatient hospitalization remains necessary. This patient has end-stage liver disease in the setting of severe protein calorie malnutrition. His life expectancy is short. I am going to try to get in touch with the family tomorrow to further these discussions. My recommendation would be a transition to 1 of the hospice houses for end-of-life care. I do not believe that his hepatic encephalopathy is going to improve and he is not taking in enough intake to sustain himself.
[2018-06-25] MEDS: LACTULOSE SYRUP 20 GM/30 ML UDCUP PO SCH ×4 (00:29→17:05)
[2018-06-25 05:48] LABS: ABSOLUTE EOSINOPHILS # (AUTO) 0.5 10^3/uL (0.0-0.6); ABSOLUTE LYMPHOCYTES (AUTO) 1.7 10^3/uL (0.5-4.7); ABSOLUTE MONOCYTES (AUTO) 0.7 10^3/uL (0.1-1.4); BASOPHILS % (AUTO) 0.5 % (0-2); EOSINOPHILS % (AUTO) 6.9 % (0-6); HEMATOCRIT 27.4 % (37.9-51.0); HEMOGLOBIN 9.9 g/dL (13.5-17.0); LYMPHOCYTES % (AUTO) 24.2 % (13-45); MEAN CORPUSCULAR HEMOGLOBIN 37.2 pg (27.0-33.4); MEAN CORPUSCULAR HGB CONC 36.1 g/dL (32.0-36.0); MEAN CORPUSCULAR VOLUME 103 fl (80-97); PLATELET COUNT 100 10^3/uL (150-450); RED BLOOD COUNT 2.66 10^6/uL (4.35-5.55); RED CELL DISTRIBUTION WIDTH 20.2 % (11.5-14.0); SEGMENTED NEUTROPHILS % (AUTO) 58.4 % (42-78); TOTAL CELLS COUNTED % (AUTO) 100 %; WHITE BLOOD COUNT 6.9 10^3/uL (4.0-10.5)
[2018-06-25 06:08] LABS: ALANINE AMINOTRANSFERASE 53 U/L (21-72); ALBUMIN 2.6 g/dL (3.5-5.0); ALKALINE PHOSPHATASE 143 U/L (38-126); ANION GAP 10 (5-19); ASPARTATE AMINO TRANSFERASE 77 U/L (17-59); BILIRUBIN,DIRECT 2.1 mg/dL (0.0-0.4); BILIRUBIN,TOTAL 4.6 mg/dL (0.2-1.3); BLOOD UREA NITROGEN 14 mg/dL (7-20); CALCIUM 8.5 mg/dL (8.4-10.2); CARBON DIOXIDE 19 mmol/L (22-30); CHLORIDE 92 mmol/L (98-107); GLUCOSE 94 mg/dL (75-110); PHOSPHORUS 2.8 mg/dL (2.5-4.5); POTASSIUM 4.2 mmol/L (3.6-5.0); SODIUM 121.4 mmol/L (137-145); TOTAL PROTEIN 7.2 g/dL (6.3-8.2)
[2018-06-25] MEDS: HEPARIN SOD (PORCINE) 5,000 UNIT/ML 1 ML SYRINGE SUBCUT SCH ×3 (10:15→22:43)
[2018-06-25] MEDS: CARVEDILOL 3.125 MG TABLET PO SCH ×2 (10:18→22:46)
[2018-06-25] MEDS: THIAMINE HCL 100 MG TABLET PO SCH (11:45)
--- NOTE | 2018-06-25 13:15 | PDOC PROGRESS REPORT ---
Subjective Progress Note for:: 06/25/18 Subjective:: The patient is resting in his bed. He really is not oriented at this point. A good review of systems could not be obtained. There are no family members at the bedside Reason For Visit: HYPERKALEMIA,AMS,SBP Physical Exam Vital Signs: Temp Pulse Resp BP Pulse Ox 97.5 F 63 18 110/43 L 100 06/25/18 12:00 06/25/18 12:00 06/25/18 12:00 06/25/18 12:00 06/25/18 12:00 Intake & Output 06/24/18 06/25/18 06/26/18 06:59 06:59 06:59 Intake Total 3000 1154 Balance 3000 1154 Weight 51.4 kg 49.7 kg General appearance: PRESENT: disheveled - Chronically cachectic and ill- appearing gentleman curled up in the bed. He will arouse and answer questions but he is quite confused, other Head exam: PRESENT: atraumatic, other - He has bitemporal muscle wasting Eye exam: PRESENT: conjunctiva pink, EOMI, PERRLA. ABSENT: scleral icterus Mouth exam: PRESENT: dry mucosa Neck exam: ABSENT: carotid bruit, JVD, lymphadenopathy, thyromegaly Respiratory exam: PRESENT: clear to auscultation michelle. ABSENT: rales, rhonchi, wheezes Cardiovascular exam: PRESENT: RRR. ABSENT: diastolic murmur, rubs, systolic murmur GI/Abdominal exam: PRESENT: normal bowel sounds, soft. ABSENT: distended, guarding, mass, organolmegaly, rebound, tenderness Rectal exam: PRESENT: deferred Extremities exam: PRESENT: other Musculoskeletal exam: ABSENT: ambulatory - Muscle wasting in all of his extremities. He is extremely cachectic Neurological exam: PRESENT: awake, oriented to person. ABSENT: oriented to place, oriented to time, oriented to situation Psychiatric exam: ABSENT: agitated, anxious, homicidal ideation, suicidal ideation Skin exam: PRESENT: dry, intact, warm. ABSENT: cyanosis, rash Results Laboratory Results: 06/25/18 05:14 06/25/18 05:14 06/25/18 06/25/18 06/25/18 05:14 05:14 05:14 WBC 6.9 RBC 2.66 L Hgb 9.9 L Hct 27.4 L MCV 103 H MCH 37.2 H MCHC 36.1 H RDW 20.2 H Plt Count 100 L Seg Neutrophils % 58.4 Lymphocytes % 24.2 Monocytes % 10.0 Eosinophils % 6.9 H Basophils % 0.5 Absolute Neutrophils 4.0 Absolute Lymphocytes 1.7 Absolute Monocytes 0.7 Absolute Eosinophils 0.5 Absolute Basophils 0.0 Sodium 121.4 L Potassium 4.2 Chloride 92 L Carbon Dioxide 19 L Anion Gap 10 BUN 14 Creatinine 0.82 Est GFR ( Amer) > 60 Est GFR (Non-Af Amer) > 60 Glucose 94 Serum Osmolality Calcium 8.5 Phosphorus 2.8 Magnesium 1.7 Total Bilirubin 4.6 H AST 77 H ALT 53 Alkaline Phosphatase 143 H Ammonia 68.6 H Total Protein 7.2 Albumin 2.6 L TSH 06/25/18 06/25/18 05:14 05:14 WBC RBC Hgb Hct MCV MCH MCHC RDW Plt Count Seg Neutrophils % Lymphocytes % Monocytes % Eosinophils % Basophils % Absolute Neutrophils Absolute Lymphocytes Absolute Monocytes Absolute Eosinophils Absolute Basophils Sodium Potassium Chloride Carbon Dioxide Anion Gap BUN Creatinine Est GFR ( Amer) Est GFR (Non-Af Amer) Glucose Serum Osmolality 252 L Calcium Phosphorus Magnesium Total Bilirubin AST ALT Alkaline Phosphatase Ammonia Total Protein Albumin TSH 2.60 Assessment and Plan - Diagnosis (1) Acute encephalopathy Is this a current diagnosis for this admission?: Yes Plan: Patient likely has hepatic encephalopathy. He certainly is not oriented. Continue lactulose. (2) End stage liver disease Is this a current diagnosis for this admission?: Yes Plan: With hepatic encephalopathy. Discussions need to be had with the patient's family. Please see advanced care planning note from my discussion with his daughter and primary decision maker today. At this point it looks like his life expectancy should be somewhat short. He is significantly malnourished (3) Severe protein-calorie malnutrition Is this a current diagnosis for this admission?: Yes Plan: The patient clearly has severe protein calorie malnutrition. Please see nutrition notes and we are following their recommendations. However the patient is so encephalopathic am not sure he will be able to eat at all. Hospital day #1. Patient is a 58 y/o male, re-admitted to [facility]. Patient is from [place]. Patient discussed this morning in rounds, A&O x1. PMHx includes: hepatic encephalopathy, chronic alcohol induced cirrhosis, malnutrition, tobacco. Labs: Hgb 10.2 L, Hct 28.7 L, Na 124 L, Co2 17 L, BUN 23 H, glucose 117, 137, 201 H, total bilirubin 5.2 H, direct bilirubin 2.6 H, AST 74 H, albumin 2.8 L. Medications includes: albuterol, carvedilol, heparin, lactulose, B12, Thiamine. Skin (per nursing assessment): left shoulder stage 1 noted on nursing admission. Usama 15. No GI symptoms noted. Meal intake: has not been established at this time. Weights from previous stays: 06/10/18 53 kg, 06/03/18 67.5 kg, 05/17/18 84.6 kg (some of wt changes noted as potentially r/t fluid changes). Noted consult in for Hospice. Nutrition Diagnosis: Underweight status related to hx malnutrition as evidenced by BMI 18.9 for age. Nutrition Interventions: Prescription: Cardiac diet, Low Potassium Diet, Regular texture, thin liquids Interventions: 1. Meals/Snacks: continue with current diet. 2. Medical Food Supplements: will trial Ensure Clear (237mL provides 240 calories, 8 g protein, 0mg potassium) r/t underweight status, wound healing, and noted malnutrition in H&P. 3. Vitamin/Mineral Supplements: continue with current supplements; B12 and Thiamin. 4. Meal assistance: provide PRN, encourage PO intake. Nutrition Monitoring/Evaluation: 1. Food Intake: continue to monitor and encourage PO intake. 2. Supplement Intake: continue to monitor and encourage intake. 3. Biochemical data, tests, labs: monitor. 4. Nutrition Focused Physical Findings: monitor overall skin integrity. 5. Anthropometric Measurements: Continue to trend wt during hospitalization. 6. Food Preferences: adjust PRN. [ End ] (4) Hyponatremia Is this a current diagnosis for this admission?: Yes Plan: Still significantly low. Will it is improved somewhat since he was admitted. He will have a chemistry panel drawn in the morning. I have gotten a serum osmolality this morning. Unfortunately the nursing staff is not been able to get urine studies. 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 I am going to place him on a fluid restriction and we will check a sodium level in the morning. He is not being cooperative with getting a sample. (5) Hyperkalemia Is this a current diagnosis for this admission?: Yes Plan: Resolved (6) Hypoglycemia Is this a current diagnosis for this admission?: Yes Plan: Due to poor p.o. intake and his underlying liver disease. (7) Macrocytic anemia Is this a current diagnosis for this admission?: Yes Plan: Due to his underlying alcohol abuse (8) Thrombocytopenia Is this a current diagnosis for this admission?: Yes Plan: Due to his alcoholic liver disease. Somewhat worsening (9) Full code status Is this a current diagnosis for this admission?: Yes - Time Time Spent with patient: 35 or more minutes - Inpatient Certification Medical Necessity: Other - Inpatient hospitalization remains necessary and I have had initial discussions regarding a transition with hospice with the daughter. We need to follow-up with my conversation. At the moment he has extremely low sodium level. We are going to try a fluid restriction overnight. We might be able to get urine studies to complete workup for hyponatremia. Hopefully the sodium restriction will work. Timing of disposition will be determined by his clinical course
--- NOTE | 2018-06-25 13:19 | Progress Note ---
Provider Note Provider Note: Advanced care planning note I spoke with the patient's daughter Elle Armijo Diagnosis: End-stage liver disease Hepatic encephalopathy Liver mass Discussion: I discussed the plan of care with the patient's daughter today. The patient has improved as his ammonia level is down a bit and he is a little more lucid. Overall he remains somewhat confused but is quite cooperative at this time. We discussed the fact that he likely will not be able to go back and live independently from this point going forward. She states that he does not [facility] to [facility] however she works full-time and has a 5-year-old at home and is unable to care for him in the home setting. We discussed different options. At this point she wishes for him to remain a full code as he filled out paperwork when he was more competent indicating that he wanted to be a full code. She understands that this disease is incurable and is progressing. We discussed the fact that the patient really is not eating enough to sustain himself. He has a BMI of 18 at this time and his appetite remains poor. We discussed palliative care as well as a potential transition to hospice house. Nursing staff reports that the patient is drinking quite a bit of water. His sodium level is going down and today we will get a put him on a fluid restriction. However without escalating his care to the hospital for intervention when he becomes decompensated I believe his life expectancy to be quite short. If we let him drink as much water as he wanted I believe his sodium level would get low and this would be a critical situation that would shorten his life span. Also the patient has a liver mass. At this point I do not know the biopsy results however the whole overall picture is quite poor. She has not made any decisions but would like to discuss the situation with the phone representative from the hospice house. I am going to get the discharge planners involved. Further discussion and follow-up needs to be had with the daughter going forward Time spent: 25 minutes
[2018-06-25] MEDS: TAMSULOSIN HCL 0.4 MG CAP.SR.24H PO SCH (17:06)
[2018-06-26] MEDS: LACTULOSE SYRUP 20 GM/30 ML UDCUP PO SCH ×5 (00:37→23:36)
[2018-06-26 05:52] LABS: ABSOLUTE BASOPHILS # (AUTO) 0.1 10^3/uL (0.0-0.2); ABSOLUTE EOSINOPHILS # (AUTO) 0.3 10^3/uL (0.0-0.6); ABSOLUTE LYMPHOCYTES (AUTO) 1.4 10^3/uL (0.5-4.7); ABSOLUTE MONOCYTES (AUTO) 0.8 10^3/uL (0.1-1.4); ABSOLUTE NEUT (AUTO) 3.8 10^3/uL (1.7-8.2); EOSINOPHILS % (AUTO) 4.4 % (0-6); HEMATOCRIT 27.5 % (37.9-51.0); HEMOGLOBIN 9.9 g/dL (13.5-17.0); LYMPHOCYTES % (AUTO) 21.6 % (13-45); MEAN CORPUSCULAR HEMOGLOBIN 37.4 pg (27.0-33.4); MEAN CORPUSCULAR HGB CONC 36.1 g/dL (32.0-36.0); MEAN CORPUSCULAR VOLUME 104 fl (80-97); MONOCYTES % (AUTO) 12.8 % (3-13); RED BLOOD COUNT 2.66 10^6/uL (4.35-5.55); RED CELL DISTRIBUTION WIDTH 20.6 % (11.5-14.0); SEGMENTED NEUTROPHILS % (AUTO) 60.2 % (42-78); TOTAL CELLS COUNTED % (AUTO) 100 %; WHITE BLOOD COUNT 6.3 10^3/uL (4.0-10.5)
[2018-06-26 06:11] LABS: PLATELET COUNT 98 10^3/uL (150-450)
[2018-06-26 06:16] LABS: ALBUMIN 2.5 g/dL (3.5-5.0); ANION GAP 10 (5-19); BLOOD UREA NITROGEN 11 mg/dL (7-20); CALCIUM 8.3 mg/dL (8.4-10.2); CARBON DIOXIDE 19 mmol/L (22-30); CHLORIDE 90 mmol/L (98-107); GLUCOSE 83 mg/dL (75-110); PHOSPHORUS 2.8 mg/dL (2.5-4.5); POTASSIUM 4.1 mmol/L (3.6-5.0)
[2018-06-26 06:23] LABS: SODIUM 118.9 mmol/L (137-145)
[2018-06-26] MEDS: HEPARIN SOD (PORCINE) 5,000 UNIT/ML 1 ML SYRINGE SUBCUT SCH ×3 (06:51→22:25)
--- NOTE | 2018-06-26 08:14 | ADVANCED CARE ---
- Diagnosis (1) Acute encephalopathy Diagnosis Current: Yes (2) End stage liver disease Diagnosis Current: Yes (3) Severe protein-calorie malnutrition Diagnosis Current: Yes (4) Hyponatremia Diagnosis Current: Yes (5) Hyperkalemia Diagnosis Current: Yes (6) Hypoglycemia Diagnosis Current: Yes (7) Macrocytic anemia Diagnosis Current: Yes (8) Thrombocytopenia Diagnosis Current: Yes (9) Full code status Diagnosis Current: Yes Attendance: Elle Hussein Resuscitation Status: Do Not Resuscitate Discussion: I had a phone conversation with earlier and she came to the hospital at the end of the day. She has decided to pursure placement at the hospice house. She understands his condition is incurable and his life expectancy is short. She also agrees that Full Code Status is not appropriate at this time. She wants no aggressive measures and wants to focus on his quality of life and managing his symptoms. She wants him to be comfortable. I am consulting the discharge planners to pursue possible inpatient hospice in [facility] Planning Goals: Comfort and managing symptoms Time Spent: 35 minutes. This discussion was had on 06/25/2018
[2018-06-26] MEDS: TRAMADOL HCL 50 MG TABLET PO PRN ×2 (10:33→17:25)
[2018-06-26] MEDS: THIAMINE HCL 100 MG TABLET PO SCH (10:33)
[2018-06-26] MEDS: CARVEDILOL 3.125 MG TABLET PO SCH ×2 (10:34→22:25)
[2018-06-26 12:05] LABS: OSMOLALITY,URINE 409 mOsm/kg (300-900)
[2018-06-26 12:22] LABS: URINE SODIUM < 5 mmol/L (30-90)
[2018-06-26] MEDS: TAMSULOSIN HCL 0.4 MG CAP.SR.24H PO SCH (17:26)
[2018-06-26] MEDS: CYANOCOBALAMIN (VITAMIN B-12) 1,000 MCG TABLET PO SCH (17:26)
--- NOTE | 2018-06-26 18:01 | PDOC PROGRESS REPORT ---
Subjective Progress Note for:: 06/26/18 Subjective:: Patient seen resting in bed. He is difficult to arouse, but he does awaken to verbal stimuli. He is oriented to self. He knows he is in the hospital has no idea what the date is or why he is here. He states he tells me he has pain in his right leg. He denies any chest pain, shortness of breath or dyspnea. He denies any nausea, vomiting or abdominal pain. He denies fevers or chills. Remaining review of systems are negative. Reason For Visit: HYPERKALEMIA,AMS,SBP Physical Exam Vital Signs: Temp Pulse Resp BP Pulse Ox 97.4 F 71 16 91/37 L 100 06/26/18 11:14 06/26/18 11:14 06/26/18 11:14 06/26/18 11:14 06/26/18 11:14 Intake & Output 06/25/18 06/26/18 06/27/18 06:59 06:59 06:59 Intake Total 1154 1332 Balance 1154 1332 Weight 49.7 kg 49.8 kg 49.8 kg General appearance: PRESENT: disheveled, thin, other - Jaundiced Head exam: PRESENT: atraumatic, normocephalic Eye exam: PRESENT: conjunctiva pale Ear exam: PRESENT: normal external ear exam Mouth exam: PRESENT: dry mucosa Teeth exam: PRESENT: poor dentation Neck exam: ABSENT: carotid bruit, JVD, lymphadenopathy, thyromegaly Respiratory exam: PRESENT: decreased breath sounds, symmetrical, unlabored Cardiovascular exam: PRESENT: RRR. ABSENT: diastolic murmur, rubs, systolic murmur Pulses: PRESENT: normal carotid pulses, normal radial pulses, normal dorsalis pedis pul Vascular exam: PRESENT: normal capillary refill GI/Abdominal exam: PRESENT: ascites, distended, hyperactive bowel sounds Rectal exam: PRESENT: deferred Extremities exam: PRESENT: full ROM. ABSENT: calf tenderness, clubbing, pedal edema Neurological exam: PRESENT: alert, altered, awake, oriented to person Psychiatric exam: PRESENT: flat affect Skin exam: PRESENT: dry, jaundice, warm Results Laboratory Results: 06/26/18 04:54 06/26/18 04:54 06/26/18 06/26/18 06/26/18 04:54 04:54 11:10 WBC 6.3 RBC 2.66 L Hgb 9.9 L Hct 27.5 L MCV 104 H MCH 37.4 H MCHC 36.1 H RDW 20.6 H Plt Count 98 L Seg Neutrophils % 60.2 Lymphocytes % 21.6 Monocytes % 12.8 Eosinophils % 4.4 Basophils % 1.0 Absolute Neutrophils 3.8 Absolute Lymphocytes 1.4 Absolute Monocytes 0.8 Absolute Eosinophils 0.3 Absolute Basophils 0.1 Sodium 118.9 L* Potassium 4.1 Chloride 90 L Carbon Dioxide 19 L Anion Gap 10 BUN 11 Creatinine 0.70 Est GFR ( Amer) > 60 Est GFR (Non-Af Amer) > 60 Glucose 83 Calcium 8.3 L Phosphorus 2.8 Magnesium 1.8 Albumin 2.5 L Urine Osmolality 409 Assessment and Plan - Diagnosis (1) Acute encephalopathy Is this a current diagnosis for this admission?: Yes Plan: Patient likely has hepatic encephalopathy. He certainly is not oriented. Continue lactulose. (2) Altered mental status Qualifiers: Altered mental status type: disorientation Qualified Code(s): R41.0 - Disorientation, unspecified Is this a current diagnosis for this admission?: Yes Plan: As above #1 (3) End stage liver disease Is this a current diagnosis for this admission?: Yes Plan: With hepatic encephalopathy. Daughter made patient DNR yesterday. I have asked for palliative care consult to follow him post discharge to [facility]. At this point it looks like his life expectancy should be somewhat short. He is significantly malnourished (4) Hepatic failure due to alcoholism Is this a current diagnosis for this admission?: Yes (5) Hypoglycemia Is this a current diagnosis for this admission?: Yes Plan: Due to poor p.o. intake and his underlying liver disease. (6) Hyponatremia Is this a current diagnosis for this admission?: Yes Plan: Down to 119 today. Continue fluid restriction he was drinking a lot of free water. He will have a chemistry panel drawn in the morning. I have gotten a serum osmolality this morning. Unfortunately the nursing staff is not been able to get urine studies. 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 (7) Severe protein-calorie malnutrition Is this a current diagnosis for this admission?: Yes Plan: The patient clearly has severe protein calorie malnutrition. Please see nutrition notes and we are following their recommendations. However the patient is so encephalopathic am not sure he will be able to eat at all. Hospital day #1. Patient is a 58 y/o male, re-admitted to [facility]. Patient is from [facility]. Patient discussed this morning in rounds, A&O x1. PMHx includes: hepatic encephalopathy, chronic alcohol induced cirrhosis, malnutrition, tobacco. Labs: Hgb 10.2 L, Hct 28.7 L, Na 124 L, Co2 17 L, BUN 23 H, glucose 117, 137, 201 H, total bilirubin 5.2 H, direct bilirubin 2.6 H, AST 74 H, al bumin 2.8 L. Medications includes: albuterol, carvedilol, heparin, lactulose, B12, Thiamine. Skin (per nursing assessment): left shoulder stage 1 noted on nursing admission. Usama 15. No GI symptoms noted. Meal intake: has not been established at this time. Weights from previous stays: 06/10/18 53 kg, 06/03/18 67.5 kg, 05/17/18 84.6 kg (some of wt changes noted as potentially r/t fluid changes). Noted consult in for Hospice. Nutrition Diagnosis: Underweight status related to hx malnutrition as evidenced by BMI 18.9 for age. Nutrition Interventions: Prescription: Cardiac diet, Low Potassium Diet, Regular texture, thin liquids Interventions: 1. Meals/Snacks: continue with current diet. 2. Medical Food Supplements: will trial Ensure Clear (237mL provides 240 calories, 8 g protein, 0mg potassium) r/t underweight status, wound healing, and noted malnutrition in H&P. 3. Vitamin/Mineral Supplements: continue with current supplements; B12 and Thiamin. 4. Meal assistance: provide PRN, encourage PO intake. Nutrition Monitoring/Evaluation: 1. Food Intake: continue to monitor and encourage PO intake. 2. Supplement Intake: continue to monitor and encourage intake. 3. Biochemical data, tests, labs: monitor. 4. Nutrition Focused Physical Findings: monitor overall skin integrity. 5. Anthropometric Measurements: Continue to trend wt during hospitalization. 6. Food Preferences: adjust PRN. [ End ] (8) Ascites Qualifiers: Ascites type: due to alcoholic cirrhosis Qualified Code(s): K70.31 - Alcoholic cirrhosis of liver with ascites Is this a current diagnosis for this admission?: Yes (9) Coagulopathy Is this a current diagnosis for this admission?: Yes Plan: Secondary to liver disease (10) Macrocytic anemia Is this a current diagnosis for this admission?: Yes Plan: Due to his underlying alcohol abuse (11) Thrombocytopenia Is this a current diagnosis for this admission?: Yes Plan: Due to his alcoholic liver disease. Somewhat worsening - Time Time Spent with patient: 25-34 minutes Total Critical Time (Minutes): 25 Medications reviewed and adjusted accordingly: Yes Anticipated discharge: SNF - Inpatient Certification Based on my medical assessment, after consideration of the patient's comorbidities, presenting symptoms, or acuity I expect that the services needed warrant INPATIENT care.: Yes I certify that my determination is in accordance with my understanding of Medicare's requirements for reasonable and necessary INPATIENT services [42 CFR 412.3e].: Yes Medical Necessity: Significant Comorbidiites Make Outpatient Treatment Too Risky, Risk of Complication if Not Cared For in Hospital
[2018-06-27] MEDS: LACTULOSE SYRUP 20 GM/30 ML UDCUP PO SCH ×3 (05:44→17:18)
[2018-06-27] MEDS: HEPARIN SOD (PORCINE) 5,000 UNIT/ML 1 ML SYRINGE SUBCUT SCH ×3 (05:44→22:22)
[2018-06-27 05:54] LABS: ANION GAP 8 (5-19); BLOOD UREA NITROGEN 14 mg/dL (7-20); CALCIUM 8.2 mg/dL (8.4-10.2); CARBON DIOXIDE 21 mmol/L (22-30); CHLORIDE 88 mmol/L (98-107); GLUCOSE 82 mg/dL (75-110); POTASSIUM 4.4 mmol/L (3.6-5.0)
[2018-06-27 06:09] LABS: SODIUM 116.9 mmol/L (137-145)
[2018-06-27] MEDS ORDERED: NORMAL SALINE 1000 ML 1,000 ML IV PRN (07:55)
[2018-06-27] MEDS: CARVEDILOL 3.125 MG TABLET PO SCH ×2 (09:12→22:21)
[2018-06-27] MEDS: CYANOCOBALAMIN (VITAMIN B-12) 1,000 MCG TABLET PO SCH (09:12)
[2018-06-27] MEDS: THIAMINE HCL 100 MG TABLET PO SCH (09:12)
--- NOTE | 2018-06-27 15:55 | PDOC PROGRESS REPORT ---
Subjective Progress Note for:: 06/27/18 Subjective:: Patient seen resting in bed. He is difficult to arouse, but he does awaken to verbal stimuli. He is oriented to self. He knows he is in the hospital has no idea what the date is or why he is here. He states he tells me he has pain in his right leg. He denies any chest pain, shortness of breath or dyspnea. He denies any nausea, vomiting or abdominal pain. He denies fevers or chills. Remaining review of systems are negative. Reason For Visit: HYPERKALEMIA,AMS,SBP Physical Exam Vital Signs: Temp Pulse Resp BP Pulse Ox 97.5 F 67 15 88/39 L 100 06/27/18 07:57 06/27/18 11:21 06/27/18 11:21 06/27/18 07:57 06/27/18 11:21 Intake & Output 06/26/18 06/27/18 06/28/18 06:59 06:59 06:59 Intake Total 1332 1209 Output Total 375 Balance 1332 834 Weight 49.8 kg 50.1 kg Results Laboratory Results: 06/26/18 04:54 06/27/18 04:48 06/26/18 06/27/18 11:10 04:48 Sodium 116.9 L* Potassium 4.4 Chloride 88 L Carbon Dioxide 21 L Anion Gap 8 BUN 14 Creatinine 0.65 Est GFR ( Amer) > 60 Est GFR (Non-Af Amer) > 60 Glucose 82 Calcium 8.2 L Magnesium 1.9 Urine Osmolality 409 Assessment and Plan - Diagnosis (1) Acute encephalopathy Is this a current diagnosis for this admission?: Yes (2) Altered mental status Qualifiers: Altered mental status type: disorientation Qualified Code(s): R41.0 - Disorientation, unspecified Is this a current diagnosis for this admission?: Yes (3) End stage liver disease Is this a current diagnosis for this admission?: Yes (4) Hepatic failure due to alcoholism Is this a current diagnosis for this admission?: Yes (5) Hypoglycemia Is this a current diagnosis for this admission?: Yes (6) Hyponatremia Is this a current diagnosis for this admission?: Yes (7) Severe protein-calorie malnutrition Is this a current diagnosis for this admission?: Yes (8) Ascites Qualifiers: Ascites type: due to alcoholic cirrhosis Qualified Code(s): K70.31 - Alcoholic cirrhosis of liver with ascites Is this a current diagnosis for this admission?: Yes (9) Coagulopathy Is this a current diagnosis for this admission?: Yes (10) Macrocytic anemia Is this a current diagnosis for this admission?: Yes (11) Thrombocytopenia Is this a current diagnosis for this admission?: Yes
--- NOTE | 2018-06-27 17:10 | PDOC TRANSFER SUMMARY ---
General - Admit/Disc Date/PCP Admission Date/Primary Care Provider: 06/23/18 21:26 TARUN PATEL MD Discharge Date: 06/27/18 - Discharge Diagnosis (1) Acute encephalopathy Is this a current diagnosis for this admission?: Yes (2) Altered mental status Is this a current diagnosis for this admission?: Yes (3) End stage liver disease Is this a current diagnosis for this admission?: Yes (4) Hepatic failure due to alcoholism Is this a current diagnosis for this admission?: Yes (5) Hypoglycemia Is this a current diagnosis for this admission?: Yes (6) Hyponatremia Is this a current diagnosis for this admission?: Yes (7) Severe protein-calorie malnutrition Is this a current diagnosis for this admission?: Yes (8) Ascites Is this a current diagnosis for this admission?: Yes (9) Coagulopathy Is this a current diagnosis for this admission?: Yes (10) Macrocytic anemia Is this a current diagnosis for this admission?: Yes (11) Thrombocytopenia Is this a current diagnosis for this admission?: Yes - Additional Information Resuscitation Status: Do Not Resuscitate Home Medications: Acetaminophen [Tylenol 325 mg Tablet] 325 mg PO Q4HP PRN 06/23/18 Albuterol Sulfate [Proair HFA Inhalation Aerosol 8.5 gm MDI] 1 puff IH Q4HP PRN 06/23/18 Carvedilol [Coreg 3.125 mg Tablet] 3.125 mg PO Q12 06/23/18 Cyanocobalamin (Vitamin B-12) [Vitamin B-12 1000 mcg Tablet] 1,000 mcg PO DAILY 06/23/18 Famotidine [Pepcid 20 mg Tablet] 20 mg PO Q12 06/23/18 Ferrous Sulfate [Feosol 325 mg Tablet] 325 mg PO TID 06/23/18 Folic Acid [Folvite 1 mg Tablet] 1 mg PO DAILY 06/23/18 Furosemide [Lasix 40 mg Tablet] 60 mg PO DAILY 06/23/18 Lactulose [Cephulac Syrup 20 gm/30 ml Udcup] 30 gm PO Q6HP PRN 06/23/18 Multivitamin [Multiple Vitamins] 1 tab PO DAILY 06/23/18 Nicotine [Nicoderm 14 mg/24 Hr Transdermal Patch] 14 mg TD DAILY 06/23/18 Nystatin 1 applic TOP BID 03/25/19 Pantoprazole Sodium [Protonix [address] Tablet] 40 mg PO BID 06/23/18 Potassium Chloride [Klor-Con M20] 40 meq PO Q12 06/23/18 Ranitidine HCl [Zantac 150 mg Tablet] 150 mg PO BID 06/23/18 Spironolactone [Aldactone 25 mg Tablet] 150 mg PO BID 06/23/18 Tamsulosin HCl [Flomax 0.4 mg Cap.sr] 0.4 mg PO QPM 06/23/18 Thiamine HCl [Thiamine 100 mg Tablet] 100 mg PO Q12 06/23/18 History of Present Illness Admission Date/PCP: 06/23/18 21:26 TARUN PATEL MD Patient complains of: Altered mental status History of Present Illness: JEROME ALVAREZ is a 58 year old male with history of alcohol related hepatic cirrhosis with encephalopathy malnutrition and tobacco dependence who is a long- term jail resident was noted by staff to be altered beyond his baseline and brought to the emergency room for evaluation where he is found to have hyperkalemia of 6 without peak T waves, hyponatremia and hypoglycemia. He receives dextrose and insulin then referred to the hospitalist for admission. Patient is unable to provide meaningful history is responding to questions with one-word answers in no acute distress. Hospital Course Hospital Course: The patient has improved as his ammonia level is down. He is anxious at times and other times extremely lethargic. Overall he remains somewhat confused but is quite cooperative at this time. We discussed the fact that he likely will not be able to go back and live independently from this point going forward. She states that he does not want to go back to the jail however she works full-time and has a 5-year-old at home and is unable to care for him in the home setting. We discussed different options. At this point she wishes for him to remain a full code as he filled out paperwork when he was more competent indicating that he wanted to be a full code. She understands that this disease is incurable and is progressing. We discussed the fact that the patient really is not eating enough to sustain himself. He has a BMI of 18 at this time and his appetite remains poor. We discussed palliative care as well as a potential transition to hospice house. Nursing staff reports that the patient is drinking quite a bit of water. His sodium level is going down and today we will get a put him on a fluid restriction. However without escalating his care to the hospital for intervention when he becomes decompensated I believe his life expectancy to be quite short. If we let him drink as much water as he wanted I believe his sodium level would get low and this would be a critical situation that would shorten his life span. Also the patient has a liver mass. At this point I do not know the biopsy results however the whole overall picture is quite poor. His daughter has verbalized wanting to proceed with hospice care and has agreed for his transfer to [facility] Physical Exam Vital Signs: Temp Pulse Resp BP Pulse Ox 97.4 F 61 13 107/48 L 100 06/27/18 16:00 06/27/18 16:00 06/27/18 16:00 06/27/18 16:00 06/27/18 16:00 Intake & Output 06/26/18 06/27/18 06/28/18 06:59 06:59 06:59 Intake Total 1332 1209 340 Output Total 375 422 Balance 1332 834 -82 Weight 49.8 kg 50.1 kg General appearance: PRESENT: disheveled, thin Head exam: PRESENT: atraumatic, normocephalic Eye exam: PRESENT: conjunctiva pale Ear exam: PRESENT: normal external ear exam Mouth exam: PRESENT: moist, tongue midline Teeth exam: PRESENT: poor dentation Neck exam: ABSENT: carotid bruit, JVD, lymphadenopathy, thyromegaly Respiratory exam: PRESENT: rhonchi, symmetrical, unlabored. ABSENT: rales, wheezes Cardiovascular exam: PRESENT: bradycardia Pulses: PRESENT: normal carotid pulses, normal radial pulses Vascular exam: PRESENT: normal capillary refill GI/Abdominal exam: PRESENT: normal bowel sounds, soft. ABSENT: distended, guarding, mass, organolmegaly, rebound, tenderness Rectal exam: PRESENT: deferred Extremities exam: PRESENT: +1 edema - bilateral lower extremities Musculoskeletal exam: PRESENT: ambulatory Neurological exam: PRESENT: alert, altered, awake, oriented to person, CN II-XII grossly intact Psychiatric exam: PRESENT: anxious Focused psych exam: PRESENT: flight of ideas Skin exam: PRESENT: dry, jaundice, warm Results Laboratory Results: 06/26/18 04:54 06/27/18 04:48 06/27/18 04:48 Sodium 116.9 L* Potassium 4.4 Chloride 88 L Carbon Dioxide 21 L Anion Gap 8 BUN 14 Creatinine 0.65 Est GFR ( Amer) > 60 Est GFR (Non-Af Amer) > 60 Glucose 82 Calcium 8.2 L Magnesium 1.9 Transfer Plan - Disposition Transfer Plan: [facility] - Time Spent with Patient Time spent with patient: Less than 30 Minutes Qualifiers - * PATIENT BEING DISCHARGED WITH ANY OF THE FOLLOWING DIAGNOSIS: No Plan Discharge Plan: [facility] Time Spent: Less than 30 Minutes
[2018-06-27] MEDS: TAMSULOSIN HCL 0.4 MG CAP.SR.24H PO SCH (17:18)
[2018-06-27] MEDS ORDERED: NICOTINE 21 MG/24 HR PATCH.TD24 TD PRN (18:29)
[2018-06-27] MEDS: TRAMADOL HCL 50 MG TABLET PO PRN (22:20)
[2018-06-28] MEDS: LACTULOSE SYRUP 20 GM/30 ML UDCUP PO SCH ×3 (00:26→11:06)
[2018-06-28] MEDS: HEPARIN SOD (PORCINE) 5,000 UNIT/ML 1 ML SYRINGE SUBCUT SCH ×2 (06:20→14:11)
[2018-06-28 08:01] LABS: ANION GAP 7 (5-19); BLOOD UREA NITROGEN 12 mg/dL (7-20); CARBON DIOXIDE 23 mmol/L (22-30); CHLORIDE 88 mmol/L (98-107); GLUCOSE 91 mg/dL (75-110); POTASSIUM 4.2 mmol/L (3.6-5.0)
[2018-06-28] MEDS ORDERED: ONDANSETRON HCL INJ/PF 4 MG/2 ML SDV IV PRN (08:14)
--- NOTE | 2018-06-28 09:56 | PDOC PROGRESS REPORT ---
Subjective Progress Note for:: 06/28/18 Subjective:: Patient seen resting in bed. He is awake and alert. He is oriented to self. He knows he is in the hospital has no idea what the date is or why he is here. He is complaining about nausea. He thinks is because he needs caffeine in the form of Pepsi. He denies any chest pain, shortness of breath or dyspnea. He denies any nausea, vomiting or abdominal pain. He denies fevers or chills. Remaining review of systems are negative. Reason For Visit: HYPERKALEMIA,AMS,SBP Physical Exam Vital Signs: Temp Pulse Resp BP Pulse Ox 98.7 F 61 20 103/47 L 100 06/28/18 08:00 06/28/18 08:00 06/28/18 08:00 06/28/18 08:00 06/28/18 08:00 Intake & Output 06/27/18 06/28/18 06/29/18 06:59 06:59 06:59 Intake Total 1209 1940 Output Total 375 872 Balance 834 1068 Weight 50.1 kg 53.3 kg General appearance: PRESENT: disheveled, thin, well-developed - ashen in color and chronically ill-appearing Head exam: PRESENT: atraumatic, normocephalic Eye exam: PRESENT: conjunctiva pale, EOMI, PERRLA. ABSENT: scleral icterus Ear exam: PRESENT: normal external ear exam Mouth exam: PRESENT: moist, tongue midline Teeth exam: PRESENT: poor dentation Neck exam: ABSENT: carotid bruit, JVD, lymphadenopathy, thyromegaly Respiratory exam: PRESENT: clear to auscultation michelle, symmetrical, unlabored Cardiovascular exam: PRESENT: RRR. ABSENT: diastolic murmur, rubs, systolic murmur Pulses: PRESENT: normal dorsalis pedis pul Vascular exam: PRESENT: normal capillary refill GI/Abdominal exam: PRESENT: hyperactive bowel sounds, soft Rectal exam: PRESENT: deferred Extremities exam: PRESENT: full ROM. ABSENT: calf tenderness, clubbing, pedal edema Neurological exam: PRESENT: alert, altered, awake, oriented to person, oriented to place, ataxia, CN II-XII grossly intact Psychiatric exam: PRESENT: anxious Skin exam: PRESENT: dry, warm, other - ashen in color Results Laboratory Results: 06/26/18 04:54 06/28/18 06:28 06/28/18 06:28 Sodium 118.0 L* Potassium 4.2 Chloride 88 L Carbon Dioxide 23 Anion Gap 7 BUN 12 Creatinine 0.60 Est GFR ( Amer) > 60 Est GFR (Non-Af Amer) > 60 Glucose 91 Calcium 8.0 L Assessment and Plan - Diagnosis (1) Acute encephalopathy Is this a current diagnosis for this admission?: Yes Plan: Secondary to elevated ammonia level. This improved with lactulose. He is now oriented to self and place. (2) Altered mental status Qualifiers: Altered mental status type: disorientation Qualified Code(s): R41.0 - Disorientation, unspecified Is this a current diagnosis for this admission?: Yes Plan: As above #1 (3) End stage liver disease Is this a current diagnosis for this admission?: Yes Plan: With hepatic encephalopathy. Daughter made patient DNR yesterday. I have asked for palliative care consult to follow him post discharge to [place]. At this point it looks like his life expectancy should be somewhat short. He is significantly malnourished (4) Hepatic failure due to alcoholism Is this a current diagnosis for this admission?: Yes Plan: As above. (5) Hypoglycemia Is this a current diagnosis for this admission?: Yes Plan: Due to poor p.o. intake and his underlying liver disease. (6) Hyponatremia Is this a current diagnosis for this admission?: Yes Plan: This did not improve with IV hydration or fluid restriction. He is now going to hospice. Will DC fluid restriction (7) Severe protein-calorie malnutrition Is this a current diagnosis for this admission?: Yes Plan: The patient clearly has severe protein calorie malnutrition. Please see nutrition notes and we are following their recommendations. However the patient is so encephalopathic am not sure he will be able to eat at all. Hospital day #1. Patient is a 58 y/o male, re-admitted to [facility]. Patient is from [place]. Patient discussed this morning in rounds, A&O x1. PMHx includes: hepatic encephalopathy, chronic alcohol induced cirrhosis, malnutrition, tob acco. Labs: Hgb 10.2 L, Hct 28.7 L, Na 124 L, Co2 17 L, BUN 23 H, glucose 117, 137, 201 H, total bilirubin 5.2 H, direct bilirubin 2.6 H, AST 74 H, albumin 2.8 L. Medications includes: albuterol, carvedilol, heparin, lactulose, B12, Thiamine. Skin (per nursing assessment): left shoulder stage 1 noted on nursing admission. Usama 15. No GI symptoms noted. Meal intake: has not been established at this time. Weights from previous stays: 06/10/18 53 kg, 06/03/18 67.5 kg, 05/17/18 84.6 kg (some of wt changes noted as potentially r/t fluid changes). Noted consult in for Hospice. Nutrition Diagnosis: Underweight status related to hx malnutrition as evidenced by BMI 18.9 for age. Nutrition Interventions: Prescription: Cardiac diet, Low Potassium Diet, Regular texture, thin liquids Interventions: 1. Meals/Snacks: continue with current diet. 2. Medical Food Supplements: will trial Ensure Clear (237mL provides 240 calories, 8 g protein, 0mg potassium) r/t underweight status, wound healing, and noted malnutrition in H&P. 3. Vitamin/Mineral Supplements: continue with current supplements; B12 and Thiamin. 4. Meal assistance: provide PRN, encourage PO intake. Nutrition Monitoring/Evaluation: 1. Food Intake: continue to monitor and encourage PO intake. 2. Supplement Intake: continue to monitor and encourage intake. 3. Biochemical data, tests, labs: monitor. 4. Nutrition Focused Physical Findings: monitor overall skin integrity. 5. Anthropometric Measurements: Continue to trend wt during hospitalization. 6. Food Preferences: adjust PRN. [ End ] (8) Ascites Qualifiers: Ascites type: due to alcoholic cirrhosis Qualified Code(s): K70.31 - Alcoholic cirrhosis of liver with ascites Is this a current diagnosis for this admission?: Yes (9) Coagulopathy Is this a current diagnosis for this admission?: Yes Plan: Secondary to liver disease (10) Macrocytic anemia Is this a current diagnosis for this admission?: Yes Plan: Due to his underlying alcohol abuse (11) Thrombocytopenia Is this a current diagnosis for this admission?: Yes Plan: Due to his alcoholic liver disease. Somewhat worsening - Time Time Spent with patient: 25-34 minutes Total Critical Time (Minutes): 25 Medications reviewed and adjusted accordingly: Yes Anticipated discharge: Hospice - Inpatient Certification Based on my medical assessment, after consideration of the patient's comorbidities, presenting symptoms, or acuity I expect that the services needed warrant INPATIENT care.: Yes I certify that my determination is in accordance with my understanding of Medicare's requirements for reasonable and necessary INPATIENT services [42 CFR 412.3e].: Yes
[2018-06-28] MEDS: CARVEDILOL 3.125 MG TABLET PO SCH (11:03)
[2018-06-28] MEDS: CYANOCOBALAMIN (VITAMIN B-12) 1,000 MCG TABLET PO SCH (11:04)
[2018-06-28] MEDS: THIAMINE HCL 100 MG TABLET PO SCH (11:04)
[2018-06-28 12:32] VITALS: BP 113/60
[2018-06-28] MEDS: TRAMADOL HCL 50 MG TABLET PO PRN (12:51)
== END 2018-06-28 16:15 | disposition hospice, inpatient (51) | DRG 432 ==
LOC: ER 17:31 → EH 21:26 → 4N 06-24 00:16
PROVIDERS: ADMIT Internal Medicine; ATTEND Internal Medicine
DX: K70.40 Alcoholic hepatic failure without coma (principal); E43 Unspecified severe protein-calorie malnutrition; Z68.1 Body mass index [BMI] 19.9 or less, adult; E87.1 Hypo-osmolality and hyponatremia; E87.5 Hyperkalemia; K70.31 Alcoholic cirrhosis of liver with ascites; E16.2 Hypoglycemia, unspecified; D64.9 Anemia, unspecified; D69.59 Other secondary thrombocytopenia; Z66 Do not resuscitate; Z79.899 Other long term (current) drug therapy; R16.0 Hepatomegaly, not elsewhere classified; I11.0 Hypertensive heart disease with heart failure; I50.9 Heart failure, unspecified; E78.5 Hyperlipidemia, unspecified; R79.1 Abnormal coagulation profile; K21.9 Gastro-esophageal reflux disease without esophagitis; F10.20 Alcohol dependence, uncomplicated; Z88.0 Allergy status to penicillin; F17.200 Nicotine dependence, unspecified, uncomplicated; Z82.49 Family history of ischemic heart disease and other diseases of the circulatory system; Z83.438 Family history of other disorder of lipoprotein metabolism and other lipidemia; Z88.2 Allergy status to sulfonamides; Z91.010 Allergy to peanuts
CPT/HCPCS: 36415; 80048; 80053; 80069; 80076; 80307; 82140; 82607; 82728; 82746; 82962; 83540; 83550; 83735; 83921; 83930; 83935; 84300; 84443; 85025; 85045; 85610; 93005; 93010; 99285; J1644; J1815; J1940; J2405; J3490; J7030; J7620